=== PATIENT | female | born 1960 | race African-American/Black ===

== ENCOUNTER 2019-02-20 07:03 | Inpatient (IN) | payer OTHER ==
[~2019-02-20] VITALS: Ht 160 cm; Wt 71.9 kg
[2019-02-20] MEDS ORDERED: IV NORMAL SALINE 1000ML BAG 1,000 ML IV ONE (07:30)
[2019-02-20] MEDS ORDERED: AMLO5TAB10 PO (07:34)
[2019-02-20] MEDS ORDERED: LEVO25TA4 PO (07:34)
[2019-02-20] MEDS ORDERED: METF10007 PO (07:34)
[2019-02-20] MEDS ORDERED: ASPI-630 PO (07:34)
[2019-02-20] MEDS ORDERED: HYDR-2145 PO (07:34)
[2019-02-20] MEDS ORDERED: ATOR20TA58 PO (07:34)
--- NOTE | 2019-02-20 08:01 | PHYS DOC ---
Past Medical History Past Medical History: Diabetes-Type II, High Cholesterol, Hypertension, Hypothyroid, Other Additional Past Medical Histor: frequent headaches Past Surgical History: Cholecystectomy, Hysterectomy, Other Additional Past Surgical Histo: hernia repair Additional Information: 1/2 ppd Alcohol Use: Heavy Additional Information: reports drinking wine at least every other day Drug Use: Cocaine Adult General Chief Complaint Chief Complaint: SYNCOPE HPI HPI Patient is a 58 year old female who presents with complaining of dizziness and syncope. Patient states she woke up at her usual time at 6 AM today and felt di zzy with feeling of the room turning around her head. Patient states she had a syncopal episode when she tried to get out of the bed and woke up on the ground. Patient complaining of headache without injury. Patient denies chest pain, shortness of breath, focal neuro deficit, fever and chills, nausea and vomiting, change of hearing. Patient states she had the same episode of dizziness and syncope a few months ago and was hospitalized with negative evaluation. She'll complaining of right great toe pain and edema since yesterday morning without history of gout or injury. Patient states she was drug free for 2 years and last night smoked crack cocaine and had couple of beers but doesn't think her syncope is related to drug and alcohol. Review of Systems Review of Systems Constitutional: Denies fever or chills [] Eyes: Denies change in visual acuity, redness, or eye pain [] HENT: Denies nasal congestion or sore throat [] Respiratory: Denies cough or shortness of breath [] Cardiovascular: No additional information not addressed in HPI [] GI: Denies abdominal pain, nausea, vomiting, bloody stools or diarrhea [] : Denies dysuria or hematuria [] Musculoskeletal: Denies back pain, reports joint pain [] Integument: Denies rash or skin lesions [] Neurologic: Reports dizziness and headache, denies focal weakness or sensory changes [] Endocrine: Denies polyuria or polydipsia [] All other systems were reviewed and found to be within normal limits, except as documented in this note. Current Medications Current Medications Current Medications Medications (Trade) Dose Ordered Sig/Ted Start Time Stop Time Status Last Admin Dose Admin Aspirin (Children'S Aspirin) 324 mg 1X ONCE 02/20/19 09:30 02/20/19 09:31 02/20/19 09:28 324 MG Ceftriaxone Sodium (Rocephin) 1 gm 1X ONCE 02/20/19 09:30 02/20/19 09:31 02/20/19 09:28 1 GM Meclizine HCl (Antivert) 25 mg 1X ONCE 02/20/19 09:30 02/20/19 09:31 02/20/19 09:28 25 MG Sodium Chloride 1,000 ml @ 1,000 mls/hr 1X ONCE 02/20/19 07:30 02/20/19 08:29 DC 02/20/19 08:24 1,000 MLS/HR Allergies Allergies Allergies Coded Allergies Type Severity Reaction Last Updated Verified Penicillins Allergy Intermediate HIVES 02/20/19 Yes Sulfa (Sulfonamide Antibiotics) Adverse Reaction Intermediate ITCHING 02/20/19 Yes Physical Exam Physical Exam Constitutional: Well developed, well nourished, mild distress, non-toxic appearance. [] HENT: Normocephalic, atraumatic, bilateral external ears normal, oropharynx moist, no oral exudates, nose normal. [] Eyes: PERRLA, EOMI, conjunctiva normal, no discharge. [] Neck: Normal range of motion, no tenderness, supple, no stridor. [] Cardiovascular:Heart rate regular rhythm, no murmur [] Lungs & Thorax: Bilateral breath sounds clear to auscultation [] Abdomen: Bowel sounds normal, soft, no tenderness, no masses, no pulsatile masses. [] Skin: Warm, dry, no erythema, no rash. [] Back: No tenderness, no CVA tenderness. [] Extremities: No tenderness, no cyanosis, no clubbing, right great toe with moderate edema and erythema and tenderness without deformity or neurovascular deficit. Neurologic: Alert and oriented X 3, normal motor function, normal sensory function, no focal deficits noted. [] Psychologic: Affect normal, judgement normal, mood normal. [] Current Patient Data Vital Signs Vital Signs Date Time Temp Pulse Resp B/P (MAP) Pulse Ox O2 Delivery O2 Flow Rate FiO2 02/20/19 07:25 98.8 79 18 134/83 (100) 97 Room Air 98.8 Lab Values Laboratory Tests Test 02/20/19 07:15 02/20/19 08:20 Urine Collection Type Void Urine Color Yellow Urine Clarity Clear Urine pH 5.0 Urine Specific [place] 1.015 Urine Protein Negative mg/dL (NEG-TRACE) Urine Glucose (UA) Negative mg/dL (NEG) Urine Ketones (Stick) Negative mg/dL (NEG) Urine Blood Negative (NEG) Urine Nitrite Negative (NEG) Urine Bilirubin Negative (NEG) Urine Urobilinogen Dipstick 0.2 mg/dL (0.2 mg/dL) Urine Leukocyte Esterase Negative (NEG) Urine RBC Occ /HPF (0-2) Urine WBC Occ /HPF (0-4) Urine Squamous Epithelial Cells Mod /LPF Urine Bacteria Few /HPF (0-FEW) Urine Mucus Mod /LPF Urine Opiates Screen Neg (NEG) Urine Methadone Screen Neg (NEG) Urine Barbiturates Neg (NEG) Urine Phencyclidine Screen Neg (NEG) Urine Amphetamine/Methamphetamine Neg (NEG) Urine Benzodiazepines Screen Neg (NEG) Urine Cocaine Screen Pos (NEG) Urine Cannabinoids Screen Neg (NEG) Urine Ethyl Alcohol Neg (NEG) White Blood Count 8.4 x10^3/uL (4.0-11.0) Red Blood Count 4.94 x10^6/uL (3.50-5.40) Hemoglobin 14.7 g/dL (12.0-15.5) Hematocrit 43.2 % (36.0-47.0) Mean Corpuscular Volume 88 fL (79-100) Mean Corpuscular Hemoglobin 30 pg (25-35) Mean Corpuscular Hemoglobin Concent 34 g/dL (31-37) Red Cell Distribution Width 14.1 % (11.5-14.5) Platelet Count 273 x10^3/uL (140-400) Neutrophils (%) (Auto) 59 % (31-73) Lymphocytes (%) (Auto) 29 % (24-48) Monocytes (%) (Auto) 8 % (0-9) Eosinophils (%) (Auto) 3 % (0-3) Basophils (%) (Auto) 1 % (0-3) Neutrophils # (Auto) 5.0 x10^3uL (1.8-7.7) Lymphocytes # (Auto) 2.5 x10^3/uL (1.0-4.8) Monocytes # (Auto) 0.7 x10^3/uL (0.0-1.1) Eosinophils # (Auto) 0.2 x10^3/uL (0.0-0.7) Basophils # (Auto) 0.1 x10^3/uL (0.0-0.2) Sodium Level 141 mmol/L (136-145) Potassium Level 3.7 mmol/L (3.5-5.1) Chloride Level 103 mmol/L (98-107) Carbon Dioxide Level 23 mmol/L (21-32) Anion Gap 15 (6-14) H Blood Urea Nitrogen 8 mg/dL (7-20) Creatinine 0.7 mg/dL (0.6-1.0) Estimated GFR (Cockcroft-Gault) 104.7 BUN/Creatinine Ratio 11 (6-20) Glucose Level 92 mg/dL (70-99) Lactic Acid Level 1.0 mmol/L (0.4-2.0) Uric Acid 5.3 mg/dL (2.6-6.0) Calcium Level 9.5 mg/dL (8.5-10.1) Magnesium Level 2.1 mg/dL (1.8-2.4) Total Bilirubin 0.7 mg/dL (0.2-1.0) Aspartate Amino Transferase (AST) 21 U/L (15-37) Alanine Aminotransferase (ALT) 25 U/L (14-59) Alkaline Phosphatase 85 U/L (46-116) Creatine Kinase 184 U/L (26-192) Troponin I Quantitative 0.163 ng/mL (0.000-0.055) Total Protein 7.4 g/dL (6.4-8.2) Albumin 4.0 g/dL (3.4-5.0) Albumin/Globulin Ratio 1.2 (1.0-1.7) Ethyl Alcohol Level < 10 mg/dL (0-10) Laboratory Tests 02/20/19 08:20 Laboratory Tests 02/20/19 08:20 EKG EKG EKG interpreted by me. EKG at 0 721 showed normal sinus rhythm at rate of 75, normal MD and QT intervals, left atrial abnormalities, LVH, no acute ST and T- wave abnormalities. Radiology/Procedures Radiology/Procedures [facility] [address] [place], [place] [id number] IMAGING REPORT Signed PATIENT: JONA CELIS ACCOUNT: [id number] : 1960 LOCATION: ER AGE: 58 SEX: F EXAM STATUS: PRE ER ORD. PHYSICIAN: LISSETTE CAMILO MD REASON: dizziness PROCEDURE: CT HEAD WO CONTRAST CT HEAD WO CONTRAST History: Dizziness Comparison: None. Technique: Noncontrast CT imaging was performed of the head. Exposure: One or more of the following individualized dose reduction techniques were utilized for this examination: 1. Automated exposure control 2. Adjustment of the mA and/or kV according to patient size 3. Use of iterative reconstruction technique. Findings: No acute extra-axial or parenchymal hemorrhage is identified. There is no significant intra-axial mass effect, midline shift, or extra-axial fluid collection. The elkins-white differentiation of the major vascular territories is preserved. Ventricular size is within normal limits. There is mild prominence of bifrontal subarachnoid spaces. The mastoid air cells and the visualized paranasal sinuses are aerated. No acute calvarial abnormality is identified. There is atherosclerotic calcification of the carotid siphons bilaterally. Impression: 1. No convincing acute intracranial abnormality is identified by CT. There is prominence of bifrontal subarachnoid spaces which may be due to involutional change. Electronically signed by: Ynes Padilla MD (02/20/2019 8:08 AM) [id number] DICTATED and SIGNED BY: YNES PADILLA MD DATE: 02/20/[address] [facility] [address] [place] [address] IMAGING REPORT Signed PATIENT: JONA CELIS ACCOUNT: [id number] : 1960 LOCATION: ER AGE: 58 SEX: F EXAM STATUS: PRE ER ORD. PHYSICIAN: LISSETTE CAMILO MD REASON: dizziness PROCEDURE: CHEST PA & LATERAL CHEST PA LATERAL History: Dizziness Comparison: None. Findings: 2 views of the chest are submitted. There is no infiltrate, pneumothorax, or effusion. The cardiac silhouette is upper limits of normal in size. Impression: 1. There is no radiographic evidence of acute cardiopulmonary disease. Electronically signed by: Ynes Padilla MD (02/20/2019 8:19 AM) [id number] DICTATED and SIGNED BY: YNES PADILLA MD DATE: 02/20/198[address] [facility] [address] [place] [address] IMAGING REPORT Signed PATIENT: JONA CELIS ACCOUNT: [id number] : 1960 LOCATION: ER AGE: 58 SEX: F EXAM STATUS: PRE ER ORD. PHYSICIAN: LISSETTE CAMILO MD REASON: great toe pain and edema PROCEDURE: TOES RIGHT TOES RIGHT History: Great toe pain and edema Comparison: None. Findings: 3 views of the right foot with attention to the first digit are submitted. No acute fracture or dislocation is identified. No aggressive bone destruction is identified. Impression: 1. No acute osseous abnormality is identified. Electronically signed by: Ynes Padilla MD (02/20/2019 8:26 AM) [id number] DICTATED and SIGNED BY: YNES PADILLA MD DATE: 02/20/19825 Course & Med Decision Making Course & Med Decision Making Pertinent Labs and Imaging studies reviewed. (See chart for details) Evaluation of patient in ER showed 67-year-old female patient presented to ER because of dizziness and syncopal episode after standing up. Patient had unremarkable physical exam. Patient had near-syncope with standing up while checking orthostatic vitals. Patient had elevation of troponin without complaining of chest pain. Patient also had right great toe erythema and edema without elevation of white count lactic acid. Patient treated with Rocephin in ER and plan to admit for evaluation of syncope and elevation of troponin and treatment of diabetic foot.Patient requiring admission for further evaluation and treatment. Discussed with Dr. Bernal who is in agreement with admission. Discussed findings and plan with patient and family, who acknowledge und erstanding and agreement. Dragon Disclaimer Dragon Disclaimer This electronic medical record was generated, in whole or in part, using a voice recognition dictation system. Departure Departure Impression: Primary Impression: Syncope Additional Impressions: Elevated troponin I level Diabetic infection of right foot Cocaine abuse Tobacco abuse Tobacco abuse counseling Headache Disposition: ADMITTED INPATIENT (at 09) Admitting Physician: Bill Evans (accepted admission at 0930) Condition: IMPROVED Problem Qualifiers Primary Impression: Syncope Syncope type: unspecified Qualified Codes: R55 - Syncope and collapse Additional Impressions: Headache Headache type: unspecified Headache chronicity pattern: unspecified pattern Intractability: not intractable Qualified Codes: R51 - Headache LISSETTE CAMILO MD February 20, 2019 08:01
--- NOTE | 2019-02-20 08:11 | RAD ---
CT HEAD WO CONTRAST History: Dizziness Comparison: None. Technique: Noncontrast CT imaging was performed of the head. Exposure: One or more of the following individualized dose reduction techniques were utilized for this examination: 1. Automated exposure control 2. Adjustment of the mA and/or kV according to patient size 3. Use of iterative reconstruction technique. Findings: No acute extra-axial or parenchymal hemorrhage is identified. There is no significant intra-axial mass effect, midline shift, or extra-axial fluid collection. The elkins-white differentiation of the major vascular territories is preserved. Ventricular size is within normal limits. There is mild prominence of bifrontal subarachnoid spaces. The mastoid air cells and the visualized paranasal sinuses are aerated. No acute calvarial abnormality is identified. There is atherosclerotic calcification of the carotid siphons bilaterally. Impression: 1. No convincing acute intracranial abnormality is identified by CT. There is prominence of bifrontal subarachnoid spaces which may be due to involutional change. Electronically signed by: Adin Padilla MD (02/20/2019 8:08 AM) [id number]
[2019-02-20 08:20] LABS: BILIRUBIN,URINE NEGATIVE (NEG); CLARITY,URINE CLEAR; COLOR,URINE YELLOW; NITRITE,URINE NEGATIVE (NEG); PROTEIN,URINE NEGATIVE (NEG-TRACE); UROBILINOGEN,URINE 0.2 mg/dL (0.2 mg/dL)
[2019-02-20 08:23] LABS: SQUAMOUS EPITHELIAL CELL,UR MOD /LPF
--- NOTE | 2019-02-20 08:23 | RAD ---
CHEST PA LATERAL History: Dizziness Comparison: None. Findings: 2 views of the chest are submitted. There is no infiltrate, pneumothorax, or effusion. The cardiac silhouette is upper limits of normal in size. Impression: 1. There is no radiographic evidence of acute cardiopulmonary disease. Electronically signed by: Adin Padilla MD (02/20/2019 8:19 AM) [id number]
[2019-02-20 08:24] LABS: BACTERIA,URINE FEW /HPF (0-FEW); RBC,URINE OCC /HPF (0-2); WBC,URINE OCC /HPF (0-4)
--- NOTE | 2019-02-20 08:29 | RAD ---
TOES RIGHT History: Great toe pain and edema Comparison: None. Findings: 3 views of the right foot with attention to the first digit are submitted. No acute fracture or dislocation is identified. No aggressive bone destruction is identified. Impression: 1. No acute osseous abnormality is identified. Electronically signed by: Adin Padilla MD (02/20/2019 8:26 AM) [id number]
[2019-02-20 08:38] LABS: BARBITURATES NEG (NEG); BENZODIAZEPINES NEG (NEG); CANNABINOIDS NEG (NEG); COCAINE POS (NEG); METHADONE NEG (NEG); OPIATES NEG (NEG); PHENCYCLIDINE NEG (NEG)
[2019-02-20 08:40] LABS: BASO # 0.1 x10^3/uL (0.0-0.2); BASO % 1 % (0-3); EOS # 0.2 x10^3/uL (0.0-0.7); EOS % 3 % (0-3); HEMATOCRIT 43.2 % (36.0-47.0); HEMOGLOBIN 14.7 g/dL (12.0-15.5); LYMPH # 2.5 x10^3/uL (1.0-4.8); LYMPH % 29 % (24-48); MEAN CORPUSCULAR HEMOGLOBIN 30 pg (25-35); MEAN CORPUSCULAR HGB CONC 34 g/dL (31-37); MEAN CORPUSCULAR VOLUME 88 fL (79-100); MONO # 0.7 x10^3/uL (0.0-1.1); MONO % 8 % (0-9); NEUT % 59 % (31-73); PLATELET COUNT 273 x10^3/uL (140-400); RED BLOOD COUNT 4.94 x10^6/uL (3.50-5.40); RED CELL DISTRIBUTION WIDTH 14.1 % (11.5-14.5); WHITE BLOOD COUNT 8.4 x10^3/uL (4.0-11.0)
[2019-02-20 08:41] LABS: AMPHETAMINE/METHAMPHETAMINE NEG (NEG)
[2019-02-20 08:53] LABS: CALCIUM 9.5 mg/dL (8.5-10.1); CREATININE 0.7 mg/dL (0.6-1.0); GFR 104.7; POTASSIUM 3.7 mmol/L (3.5-5.1)
[2019-02-20 09:06] LABS: ALBUMIN/GLOBULIN RATIO 1.2 (1.0-1.7); MAGNESIUM 2.1 mg/dL (1.8-2.4); TOTAL BILIRUBIN 0.7 mg/dL (0.2-1.0); TOTAL PROTEIN 7.4 g/dL (6.4-8.2)
[2019-02-20] MEDS ORDERED: MECLIZINE HCL 12.5 MG TABLET. PO ONE (09:30)
[2019-02-20] MEDS ORDERED: ASPIRIN CHEWABLE 81 MG TABLET. PO ONE (09:30)
[2019-02-20] MEDS ORDERED: cefTRIAXone IV Push 1 GM VIAL. IVP ONE (09:30)
[2019-02-20] MEDS ORDERED: fentaNYL PF VIAL 100 MCG/2 ML VIAL IV ONE (09:45)
--- NOTE | 2019-02-20 10:06 | PDOC1 ---
History and Physical Date of Admission Date of Admission DATE: 02/20/19 TIME: 10:06 Identification/Chief Complaint Chief Complaint seen in er ,Presents with complaining of dizziness and syncope. Patient states she woke up at her usual time at 6 AM today and felt dizzy with feeling of the room turning Patient states she had a syncopal episode when she tried to get out of the bed and woke up on the ground., complaining of headache without injury. Patient denies chest pain, shortness of breath, focal neuro deficit, fever and chills, nausea and vomiting, change of hearing. states she had the same episode of dizziness and syncope a few months ago and was hospitalized with negative evaluation. complaining of right great toe pain and edema since yesterday morning without history of gout or injury. states she was drug free for 2 years and last night smoked crack cocaine Past Medical History Past Medical History Past Medical History Past Medical History: Diabetes-Type II, High Cholesterol, Hypertension, Hypothyroid, Other Additional Past Medical Histor: frequent headaches Past Surgical History: Cholecystectomy, Hysterectomy, Other Additional Past Surgical Histo: hernia repair Additional Information: 1/2 ppd Alcohol Use: Heavy Additional Information: reports drinking wine at least every other day Drug Use: Cocaine Family History Family History: Hypertension Social History Smoke: <1 pack per day ALCOHOL: social Drugs: Cocaine Current Problem List Problem List Problems Medical Problems: (1) Cocaine abuse Status: Acute (2) Diabetic infection of right foot Status: Acute (3) Elevated troponin I level Status: Acute (4) Headache Status: Acute (5) Syncope Status: Acute (6) Tobacco abuse Status: Acute (7) Tobacco abuse counseling Status: Acute Current Medications Current Medications Current Medications Sodium Chloride 1,000 ml @ 1,000 mls/hr 1X ONCE IV Last administered on 02/20/19at 08:24; Start 02/20/19 at 07:30; Stop 02/20/19 at 08:29; Status DC Meclizine HCl (Antivert) 25 mg 1X ONCE PO Last administered on 02/20/19at 09:28; Start 02/20/19 at 09:30; Stop 02/20/19 at 09:31; Status DC Ceftriaxone Sodium (Rocephin) 1 gm 1X ONCE IVP Last administered on 02/20/19at 09:28; Start 02/20/19 at 09:30; Stop 02/20/19 at 09:31; Status DC Aspirin (Children'S Aspirin) 324 mg 1X ONCE PO Last administered on 02/20/19at 09:28; Start 02/20/19 at 09:30; Stop 02/20/19 at 09:31; Status DC Fentanyl Citrate (Fentanyl 2ml Vial) 50 mcg 1X ONCE IV ; Start 02/20/19 at 09:45; Stop 02/20/19 at 09:46; Status DC Active Scripts Active Reported Atorvastatin Calcium 20 Mg Tablet 1 Tab PO DAILY Metformin Hcl 1,000 Mg Tablet 1,000 Mg PO BIDWMEALS Aspirin 81 Mg Tab.chew 1 Tab PO DAILY Levothyroxine Sodium 25 Mcg Tablet 1 Tab PO DAILY Hydrochlorothiazide Tablet (Hydrochlorothiazide) 25 Mg Tablet 25 Mg PO DAILY Amlodipine Besylate 5 Mg Tablet 5 Mg PO DAILY Allergies Allergies: Coded Allergies: Penicillins (Verified Allergy, Intermediate, HIVES, 02/20/19) Sulfa (Sulfonamide Antibiotics) (Verified Adverse Reaction, Intermediate, ITCHING, 02/20/19) ROS Review of System Review of Systems Review of Systems Constitutional: Denies fever or chills [] Eyes: Denies change in visual acuity, redness, or eye pain [] HENT: Denies nasal congestion or sore throat [] Respiratory: Denies cough or shortness of breath [] Cardiovascular: No additional information not addressed in HPI [] GI: Denies abdominal pain, nausea, vomiting, bloody stools or diarrhea [] : Denies dysuria or hematuria [] Musculoskeletal: Denies back pain, reports joint pain [] Integument: Denies rash or skin lesions [] Neurologic: Reports dizziness and headache, denies focal weakness or sensory changes [] Endocrine: Denies polyuria or polydipsia [] 14 pt systems were reviewed and found to be within normal limits, except as documented . Eyes: No Blurry vision, No Decreased vision, No Double vision, No Dry eyes, No Excessive tearing, No Eye Pain, No Itchy Eyes, No Loss of vision, No Photophobia, No Scotomata, No Uses contacts, No Uses glasses, No Other HEENT: YES: Heacaches Gastrointestinal: No Nausea, No Vomiting, No Abdominal Pain, No Diarrhea, No Constipation, No Melena, No Hematochezia, No Other Physical Exam Physical Exam Physical Exam Physical Exam Constitutional: Well developed, well nourished, mild distress, non-toxic appearance. [] HENT: Normocephalic, atraumatic, bilateral external ears normal, oropharynx moist, no oral exudates, nose normal. [] Eyes: PERRLA, EOMI, conjunctiva normal, no discharge. [] Neck: Normal range of motion, no tenderness, supple, no stridor. [] Cardiovascular:Heart rate regular rhythm, no murmur [] Lungs & Thorax: Bilateral breath sounds clear to auscultation [] Abdomen: Bowel sounds normal, soft, no tenderness, no masses, no pulsatile masses. [] Skin: Warm, dry, no erythema, no rash. [] Back: No tenderness, no CVA tenderness. [] Extremities: No tenderness, no cyanosis, no clubbing, right great toe with mod erate edema and erythema and tenderness without deformity or neurovascular deficit. Neurologic: Alert and oriented X 3, normal motor function, normal sensory function, no focal deficits noted. [] Psychologic: Affect normal, judgement poor mood anxious. [] General: Oriented X3, Cooperative HEENT: Atraumatic, EOMI, Mucous membr. moist/pink Lungs: Clear to auscultation, Normal air movement Heart: S1S2, RRR Breasts: Not examined Abdomen: Normal bowel sounds, Soft Rectal Exam: not examined Neuro: Normal speech, Cranial nerves 3-12 NL Vitals Vitals Vital Signs Date Time Temp Pulse Resp B/P (MAP) Pulse Ox O2 Delivery O2 Flow Rate FiO2 02/20/19 07:25 98.8 79 18 134/83 (100) 97 Room Air 98.8 Labs Labs Laboratory Tests Test 02/20/19 07:15 02/20/19 08:20 Urine Collection Type Void Urine Color Yellow Urine Clarity Clear Urine pH 5.0 Urine Specific [place] 1.015 Urine Protein Negative mg/dL (NEG-TRACE) Urine Glucose (UA) Negative mg/dL (NEG) Urine Ketones (Stick) Negative mg/dL (NEG) Urine Blood Negative (NEG) Urine Nitrite Negative (NEG) Urine Bilirubin Negative (NEG) Urine Urobilinogen Dipstick 0.2 mg/dL (0.2 mg/dL) Urine Leukocyte Esterase Negative (NEG) Urine RBC Occ /HPF (0-2) Urine WBC Occ /HPF (0-4) Urine Squamous Epithelial Cells Mod /LPF Urine Bacteria Few /HPF (0-FEW) Urine Mucus Mod /LPF Urine Opiates Screen Neg (NEG) Urine Methadone Screen Neg (NEG) Urine Barbiturates Neg (NEG) Urine Phencyclidine Screen Neg (NEG) Urine Amphetamine/Methamphetamine Neg (NEG) Urine Benzodiazepines Screen Neg (NEG) Urine Cocaine Screen Pos (NEG) Urine Cannabinoids Screen Neg (NEG) Urine Ethyl Alcohol Neg (NEG) White Blood Count 8.4 x10^3/uL (4.0-11.0) Red Blood Count 4.94 x10^6/uL (3.50-5.40) Hemoglobin 14.7 g/dL (12.0-15.5) Hematocrit 43.2 % (36.0-47.0) Mean Corpuscular Volume 88 fL (79-100) Mean Corpuscular Hemoglobin 30 pg (25-35) Mean Corpuscular Hemoglobin Concent 34 g/dL (31-37) Red Cell Distribution Width 14.1 % (11.5-14.5) Platelet Count 273 x10^3/uL (140-400) Neutrophils (%) (Auto) 59 % (31-73) Lymphocytes (%) (Auto) 29 % (24-48) Monocytes (%) (Auto) 8 % (0-9) Eosinophils (%) (Auto) 3 % (0-3) Basophils (%) (Auto) 1 % (0-3) Neutrophils # (Auto) 5.0 x10^3uL (1.8-7.7) Lymphocytes # (Auto) 2.5 x10^3/uL (1.0-4.8) Monocytes # (Auto) 0.7 x10^3/uL (0.0-1.1) Eosinophils # (Auto) 0.2 x10^3/uL (0.0-0.7) Basophils # (Auto) 0.1 x10^3/uL (0.0-0.2) Sodium Level 141 mmol/L (136-145) Potassium Level 3.7 mmol/L (3.5-5.1) Chloride Level 103 mmol/L (98-107) Carbon Dioxide Level 23 mmol/L (21-32) Anion Gap 15 (6-14) Blood Urea Nitrogen 8 mg/dL (7-20) Creatinine 0.7 mg/dL (0.6-1.0) Estimated GFR (Cockcroft-Gault) 104.7 BUN/Creatinine Ratio 11 (6-20) Glucose Level 92 mg/dL (70-99) Lactic Acid Level 1.0 mmol/L (0.4-2.0) Uric Acid 5.3 mg/dL (2.6-6.0) Calcium Level 9.5 mg/dL (8.5-10.1) Magnesium Level 2.1 mg/dL (1.8-2.4) Total Bilirubin 0.7 mg/dL (0.2-1.0) Aspartate Amino Transf (AST/SGOT) 21 U/L (15-37) Alanine Aminotransferase (ALT/SGPT) 25 U/L (14-59) Alkaline Phosphatase 85 U/L (46-116) Creatine Kinase 184 U/L (26-192) Troponin I Quantitative 0.163 ng/mL (0.000-0.055) Total Protein 7.4 g/dL (6.4-8.2) Albumin 4.0 g/dL (3.4-5.0) Albumin/Globulin Ratio 1.2 (1.0-1.7) Ethyl Alcohol Level < 10 mg/dL (0-10) Laboratory Tests Test 02/20/19 07:15 02/20/19 08:20 Urine Collection Type Void Urine Color Yellow Urine Clarity Clear Urine pH 5.0 Urine Specific [place] 1.015 Urine Protein Negative mg/dL (NEG-TRACE) Urine Glucose (UA) Negative mg/dL (NEG) Urine Ketones (Stick) Negative mg/dL (NEG) Urine Blood Negative (NEG) Urine Nitrite Negative (NEG) Urine Bilirubin Negative (NEG) Urine Urobilinogen Dipstick 0.2 mg/dL (0.2 mg/dL) Urine Leukocyte Esterase Negative (NEG) Urine RBC Occ /HPF (0-2) Urine WBC Occ /HPF (0-4) Urine Squamous Epithelial Cells Mod /LPF Urine Bacteria Few /HPF (0-FEW) Urine Mucus Mod /LPF Urine Opiates Screen Neg (NEG) Urine Methadone Screen Neg (NEG) Urine Barbiturates Neg (NEG) Urine Phencyclidine Screen Neg (NEG) Urine Amphetamine/Methamphetamine Neg (NEG) Urine Benzodiazepines Screen Neg (NEG) Urine Cocaine Screen Pos (NEG) Urine Cannabinoids Screen Neg (NEG) Urine Ethyl Alcohol Neg (NEG) White Blood Count 8.4 x10^3/uL (4.0-11.0) Red Blood Count 4.94 x10^6/uL (3.50-5.40) Hemoglobin 14.7 g/dL (12.0-15.5) Hematocrit 43.2 % (36.0-47.0) Mean Corpuscular Volume 88 fL (79-100) Mean Corpuscular Hemoglobin 30 pg (25-35) Mean Corpuscular Hemoglobin Concent 34 g/dL (31-37) Red Cell Distribution Width 14.1 % (11.5-14.5) Platelet Count 273 x10^3/uL (140-400) Neutrophils (%) (Auto) 59 % (31-73) Lymphocytes (%) (Auto) 29 % (24-48) Monocytes (%) (Auto) 8 % (0-9) Eosinophils (%) (Auto) 3 % (0-3) Basophils (%) (Auto) 1 % (0-3) Neutrophils # (Auto) 5.0 x10^3uL (1.8-7.7) Lymphocytes # (Auto) 2.5 x10^3/uL (1.0-4.8) Monocytes # (Auto) 0.7 x10^3/uL (0.0-1.1) Eosinophils # (Auto) 0.2 x10^3/uL (0.0-0.7) Basophils # (Auto) 0.1 x10^3/uL (0.0-0.2) Sodium Level 141 mmol/L (136-145) Potassium Level 3.7 mmol/L (3.5-5.1) Chloride Level 103 mmol/L (98-107) Carbon Dioxide Level 23 mmol/L (21-32) Anion Gap 15 (6-14) Blood Urea Nitrogen 8 mg/dL (7-20) Creatinine 0.7 mg/dL (0.6-1.0) Estimated GFR (Cockcroft-Gault) 104.7 BUN/Creatinine Ratio 11 (6-20) Glucose Level 92 mg/dL (70-99) Lactic Acid Level 1.0 mmol/L (0.4-2.0) Uric Acid 5.3 mg/dL (2.6-6.0) Calcium Level 9.5 mg/dL (8.5-10.1) Magnesium Level 2.1 mg/dL (1.8-2.4) Total Bilirubin 0.7 mg/dL (0.2-1.0) Aspartate Amino Transf (AST/SGOT) 21 U/L (15-37) Alanine Aminotransferase (ALT/SGPT) 25 U/L (14-59) Alkaline Phosphatase 85 U/L (46-116) Creatine Kinase 184 U/L (26-192) Troponin I Quantitative 0.163 ng/mL (0.000-0.055) Total Protein 7.4 g/dL (6.4-8.2) Albumin 4.0 g/dL (3.4-5.0) Albumin/Globulin Ratio 1.2 (1.0-1.7) Ethyl Alcohol Level < 10 mg/dL (0-10) Images Images CT HEAD WO CONTRAST History: Dizziness Comparison: None. Technique: Noncontrast CT imaging was performed of the head. Exposure: One or more of the following individualized dose reduction techniques were utilized for this examination: 1. Automated exposure control 2. Adjustment of the mA and/or kV according to patient size 3. Use of iterative reconstruction technique. Findings: No acute extra-axial or parenchymal hemorrhage is identified. There is no significant intra-axial mass effect, midline shift, or extra-axial fluid collection. The elkins-white differentiation of the major vascular territories is preserved. Ventricular size is within normal limits. There is mild prominence of bifrontal subarachnoid spaces. The mastoid air cells and the visualized paranasal sinuses are aerated. No acute calvarial abnormality is identified. There is atherosclerotic calcification of the carotid siphons bilaterally. Impression: 1. No convincing acute intracranial abnormality is identified by CT. There is prominence of bifrontal subarachnoid spaces which may be due to involutional change. Electronically signed by: Ynes Milligan MD (02/20/2019 8:08 AM) [id number] DICTATED and SIGNED BY: YNES MILLIGAN MD DATE: 02/20/19 0808 VTE Prophylaxis Ordered VTE Prophylaxis Devices: Yes VTE Pharmacological Prophylaxi: Yes Assessment/Plan Assessment/Plan Impression: 1. No acute intracranial abnormality is identified by CT. 2. prominence of bifrontal subarachnoid spaces which may be due to involutional change. 3. reported syncopal episode 4. alcohol abuse 5. cocaine abuse 6. elevated troponin i, high risk admit for CAD 7. DM2 8. Hypothyroidism 9.. Tobacco abuse disorder plan 1. admit cvc 2. neurology consult 3. neurochecks q 4 hrs 4. counseled on need to seek drug treatment program provided 5. cardiology consult 6. dvt prophylaxis 7. gi prophylaxis 8. echo 9. trend troponin i 10. dvt prophylaxis 11. gi prophylaxis 12, alcohol withdrawal precautions 78 min pt exam, chart review, > 50% of time spent with exam, chart review, pt care coordination NACHO MAK MD February 20, 2019 10:06
[2019-02-20] MEDS ORDERED: LORazepam 1 MG TABLET PO PRN ×2 (10:15)
[2019-02-20] MEDS ORDERED: diphenhydrAMINE 50 MG/ML VIAL IVP PRN (10:15)
[2019-02-20] MEDS ORDERED: cloNIDine HCL 0.1 MG TABLET PO PRN ×2 (10:15→12:15)
[2019-02-20] MEDS ORDERED: HALOPERIDOL LACTATE 5 MG/ML VIAL. IVP PRN (10:15)
[2019-02-20 11:00] VITALS: BP 160/88
[2019-02-20] MEDS: ASPIRIN CHEWABLE 81 MG TABLET. PO SCH (11:00)
[2019-02-20] MEDS ORDERED: THIAMINE 100 MG TABLET. PO SCH (11:00)
[2019-02-20] MEDS ORDERED: MULTIVITAMIN with MINERAL TABLET. PO SCH (11:00)
[2019-02-20] MEDS ORDERED: FOLIC ACID 1 MG TABLET. PO SCH (11:00)
[2019-02-20] MEDS: ATORVASTATIN CALCIUM 20 MG TABLET PO SCH (11:00)
[2019-02-20] MEDS: LEVOTHYROXINE 25 MCG TABLET. PO SCH (11:00)
[2019-02-20] MEDS: hydroCHLOROthiazide 25 MG TABLET PO SCH (11:00)
--- NOTE | 2019-02-20 11:01 | PDOC2 ---
KARYN WALLER GENERAL MAINTENANCE ENGINEER 02/20/19 1101: CARDIAC CONSULT DATE OF CONSULT Date of Consult DATE: 02/20/19 TIME: 10:55 REASON FOR CONSULT Reason for Consult: Elevated troponin REFERRING PHYSICIAN Referring Physician: Fullbright SOURCE Source: Chart review, Patient HISTORY OF PRESENT ILLNESS HISTORY OF PRESENT ILLNESS This is a 58 yo female admitted for complains of right big toe pain and passing out. Reports that in the last 2 days she has been having right big toe pain. This is tender and slightly swollen. No hx of gout but does drink ETOH and denies heavy ingestion nor binge use. Reports no SANDHU nor exertional CP in the last week. She is however stressed out at work due to her boss. Reports that t his morning when she got up and started walking to towards the bathroom she got dizzy and passed out. She was standing and the next thing she was on the floor no apparent injury sustained. No AMBROSE, ,visual or auditory disturbances, dysarthria but sandhu shave occasional AMBROSE. No bowel incontinence. No recent fever, chills, MVA, concussion. She had taco jett for dinner last night and drank beer and possibly smirnoff which she denies. She denies heavy alcoholism but had a relapse last night as she rolled tobacco laced with cocaine last night. She said she had a relapse as she has been sober for 2 yrs. NO prior hx of CAD, VTE, CVA but has had seizures in the past. There was convulsion symptoms no palpiations and again no chest pain nor SOA associated with this fall. PAST MEDICAL HISTORY Cardiovascular: HTN, Hyperlipidemia Pulmonary: No pertinent hx CENTRAL NERVOUS SYSTEM: Seizure, Other (AMBROSE) GI: No pertinent hx Heme/Onc: No pertinent hx Hepatobiliary: No pertinent hx Psych: Anxiety Musculoskeletal: Osteoarthritis Rheumatologic: No pertinent hx Infectious disease: No pertinent hx ENT: No pertinent hx Renal/: No pertinent hx Endocrine: Diabetes (2), Hypothyroidism Dermatology: No pertinent hx PAST SURGICAL HISTORY Past Surgical History: Cholecystectomy, Hernia Repair, Hysterectomy FAMILY HISTORY Family History noncontributory to CV SOCIAL HISTORY Smoke: <1 pack per day Drugs: Cocaine CURRENT MEDICATIONS CURRENT MEDICATIONS Current Medications Medications (Trade) Dose Ordered Sig/Ted Route PRN Reason Start Time Stop Time Status Last Admin Dose Admin Sodium Chloride 1,000 ml @ 1,000 mls/hr 1X ONCE IV 02/20/19 07:30 02/20/19 08:29 DC 02/20/19 08:24 Meclizine HCl (Antivert) 25 mg 1X ONCE PO 02/20/19 09:30 02/20/19 09:31 DC 02/20/19 09:28 Ceftriaxone Sodium (Rocephin) 1 gm 1X ONCE IVP 02/20/19 09:30 02/20/19 09:31 DC 02/20/19 09:28 Aspirin (Children'S Aspirin) 324 mg 1X ONCE PO 02/20/19 09:30 02/20/19 09:31 DC 02/20/19 09:28 ALLERGIES ALLERGIES: Coded Allergies: Penicillins (Verified Allergy, Intermediate, HIVES, 02/20/19) Sulfa (Sulfonamide Antibiotics) (Verified Adverse Reaction, Intermediate, ITCHING, 02/20/19) ROS Review of System 14 point ROS evaluated with pertinent positives noted per HPI PHYSICAL EXAM General: Alert, Oriented X3, Cooperative, No acute distress HEENT: Atraumatic, Mucous membr. moist/pink Heart: Regular rate (SR), Normal S1, Normal S2, No murmurs Abdomen: Soft, No tenderness Extremities: No cyanosis (edal pulses), No edema Skin: No breakdown, No significant lesion Psych/Mental Status: Mental status NL, Other (irritable) MUSCULOSKELETAL: Osteoarthritic changes both hands, Other (slightly swollen right big toe with mild erythema) VITALS VITALS Vital Signs Date Time Temp Pulse Resp B/P (MAP) Pulse Ox O2 Delivery O2 Flow Rate FiO2 02/20/19 10:04 80 20 120/58 (78) 97 Room Air 02/20/19 07:25 98.8 98.8 LABS Lab: Laboratory Tests Test 02/20/19 07:15 02/20/19 08:20 Urine Collection Type Void Urine Color Yellow Urine Clarity Clear Urine pH 5.0 Urine Specific [place] 1.015 Urine Protein Negative mg/dL (NEG-TRACE) Urine Glucose (UA) Negative mg/dL (NEG) Urine Ketones (Stick) Negative mg/dL (NEG) Urine Blood Negative (NEG) Urine Nitrite Negative (NEG) Urine Bilirubin Negative (NEG) Urine Urobilinogen Dipstick 0.2 mg/dL (0.2 mg/dL) Urine Leukocyte Esterase Negative (NEG) Urine RBC Occ /HPF (0-2) Urine WBC Occ /HPF (0-4) Urine Squamous Epithelial Cells Mod /LPF Urine Bacteria Few /HPF (0-FEW) Urine Mucus Mod /LPF Urine Opiates Screen Neg (NEG) Urine Methadone Screen Neg (NEG) Urine Barbiturates Neg (NEG) Urine Phencyclidine Screen Neg (NEG) Urine Amphetamine/Methamphetamine Neg (NEG) Urine Benzodiazepines Screen Neg (NEG) Urine Cocaine Screen Pos (NEG) Urine Cannabinoids Screen Neg (NEG) Urine Ethyl Alcohol Neg (NEG) White Blood Count 8.4 x10^3/uL (4.0-11.0) Red Blood Count 4.94 x10^6/uL (3.50-5.40) Hemoglobin 14.7 g/dL (12.0-15.5) Hematocrit 43.2 % (36.0-47.0) Mean Corpuscular Volume 88 fL (79-100) Mean Corpuscular Hemoglobin 30 pg (25-35) Mean Corpuscular Hemoglobin Concent 34 g/dL (31-37) Red Cell Distribution Width 14.1 % (11.5-14.5) Platelet Count 273 x10^3/uL (140-400) Neutrophils (%) (Auto) 59 % (31-73) Lymphocytes (%) (Auto) 29 % (24-48) Monocytes (%) (Auto) 8 % (0-9) Eosinophils (%) (Auto) 3 % (0-3) Basophils (%) (Auto) 1 % (0-3) Neutrophils # (Auto) 5.0 x10^3uL (1.8-7.7) Lymphocytes # (Auto) 2.5 x10^3/uL (1.0-4.8) Monocytes # (Auto) 0.7 x10^3/uL (0.0-1.1) Eosinophils # (Auto) 0.2 x10^3/uL (0.0-0.7) Basophils # (Auto) 0.1 x10^3/uL (0.0-0.2) Sodium Level 141 mmol/L (136-145) Potassium Level 3.7 mmol/L (3.5-5.1) Chloride Level 103 mmol/L (98-107) Carbon Dioxide Level 23 mmol/L (21-32) Anion Gap 15 (6-14) Blood Urea Nitrogen 8 mg/dL (7-20) Creatinine 0.7 mg/dL (0.6-1.0) Estimated GFR (Cockcroft-Gault) 104.7 BUN/Creatinine Ratio 11 (6-20) Glucose Level 92 mg/dL (70-99) Lactic Acid Level 1.0 mmol/L (0.4-2.0) Uric Acid 5.3 mg/dL (2.6-6.0) Calcium Level 9.5 mg/dL (8.5-10.1) Magnesium Level 2.1 mg/dL (1.8-2.4) Total Bilirubin 0.7 mg/dL (0.2-1.0) Aspartate Amino Transf (AST/SGOT) 21 U/L (15-37) Alanine Aminotransferase (ALT/SGPT) 25 U/L (14-59) Alkaline Phosphatase 85 U/L (46-116) Creatine Kinase 184 U/L (26-192) Troponin I Quantitative 0.163 ng/mL (0.000-0.055) Total Protein 7.4 g/dL (6.4-8.2) Albumin 4.0 g/dL (3.4-5.0) Albumin/Globulin Ratio 1.2 (1.0-1.7) Ethyl Alcohol Level < 10 mg/dL (0-10) ASSESSMENT/PLAN ASSESSMENT/PLAN 1. Syncope with nontraumatic fall: doubt arrhythmia. possible hypoglycemic re action stemming from ETOH but could not fully rule out seizure nor arrhythmia. 2. Right big toe swelling: possible gout. present prior to syncope. 3. HTN: labile episodes 4. DM2 5. Hypothyroidism 6. Tobaccoism 7. Alcoholism: denies heavy or binge 8. Cocaine abuse: last use last night relapse 9. Elevated troponin: CP free. Mild at 0.16 initially. EKG SR with LVH. Multifactorial with differentials above. possibly type 2. Recommendations 1. Trend trop, lipids. TTE. 2. Substance abuse cessation. Smoking cessation 3. Continue with secondary prevention. 4. ASA. May need to hold HCTZ for possible gout. 5. May uptitrate norvasc if need. Agree with clonidine PRN 6. Will consider for outpt stress test pending test and complaince with cess ation of substance abuse. AILYN BOWLING MD 02/20/19 7386: CARDIAC CONSULT ASSESSMENT/PLAN ASSESSMENT/PLAN Patient seen and examined. Agree with CLIENT TECHNICAL SPECIALIST's assessment and plan. Telemetry did not show any significant arrhythmia so for Slight troponin elevation most probably demand ischemia 2-D echo showed normal LV function without any wall motion abnormalities We will consider ischemic evaluation as an outpatient Thank you for your consultation KARYN WALLER APRN February 20, 2019 11:01 AILYN BOWLING MD February 20, 2019 17:55
[2019-02-20] MEDS: MULTIVIT INFUSN,ADULT 4,VIT K 10 ML, THIAMINE INJ 100 MG, FOLIC ACID INJ 1 MG in IV NOR... IV SCH (11:18)
[2019-02-20] MEDS ORDERED: ONDANSETRON PF 4 MG/2 ML VIAL. ONE (11:36)
[2019-02-20] MEDS: metFORMIN 500 MG TABLET PO SCH ×2 (12:00→17:00)
[2019-02-20] MEDS ORDERED: IPRATRPIUM/ALBUTEROL 0.5/2.5MG 3 ML NEBU. NEB SCH (12:00)
[2019-02-20] MEDS ORDERED: VANCOMYCIN 1 GM in IV DEXTROSE 5% 250 ML IV ONE (12:15)
[2019-02-20] MEDS ORDERED: MAG HYDROX/ALUMINUM HYD/SIMETH 30 ML ORAL.SUSP PO PRN (12:15)
[2019-02-20] MEDS ORDERED: ONDANSETRON PF 4 MG/2 ML VIAL. IV PRN (12:15)
[2019-02-20] MEDS ORDERED: DOCUSATE SODIUM 100 MG CAPSULE. PO PRN (12:15)
[2019-02-20] MEDS ORDERED: 0.9 % SODIUM CHLORIDE 10 ML DISP.SYRIN. IV PRN (12:15)
[2019-02-20] MEDS ORDERED: guaiFENesin ORAL 200 MG/10 ML LIQUID. PO PRN (12:15)
[2019-02-20] MEDS ORDERED: MULTIVIT INFUSN,ADULT 4,VIT K 10 ML, THIAMINE INJ 100 MG, FOLIC ACID INJ 1 MG in IV NOR... IV SCH (12:15)
[2019-02-20] MEDS ORDERED: ZOLPIDEM 5 MG TABLET. PO PRN (12:15)
--- NOTE | 2019-02-20 12:20 | EKG ---
[facility] [address] [place] [address] Test Date: 2019-02-20 Test Time: 07:21:58 Pat Name: JONA CELIS Department: Room: 207 Gender: F Special Procedure Tech: : 1960 Requested By: LISSETTE CAMILO Order Number: [id number] Reading MD: Lucas Aguirre Measurements Intervals [facility] Rate: 75 P: 56 [place]: 164 QRS: 65 QRSD: 96 T: 39 QT: 390 QTc: 438 Interpretive Statements SINUS RHYTHM LEFT ATRIAL ABNORMALITY MODERATE AMPLITUDE CRITERIA FOR LVH Electronically Signed On 03-13-2019 12:26:21 CDT by Lucas Aguirre
[2019-02-20] MEDS: PANTOPRAZOLE 40 MG TABLET.DR. PO SCH (12:30)
[2019-02-20] MEDS: amLODIPine BESYLATE 5 MG TABLET PO SCH (12:34)
--- NOTE | 2019-02-20 12:43 | EKG ---
[facility] [address] [place] [address] Test Date: 2019-02-20 Test Time: 11:44:55 Pat Name: JONA CELIS Department: Room: [facility] Gender: F Risk Control Director: : 1960 Requested By: KARYN WALLER Order Number: [id number] Reading MD: Lucas Aguirre Measurements Intervals [place] Rate: 73 P: 33 [place]: 170 QRS: 31 QRSD: 100 T: 30 QT: 410 QTc: 456 Interpretive Statements SINUS RHYTHM LOW LIMB LEAD VOLTAGE Electronically Signed On 03-13-2019 12:30:40 CDT by Lucas Aguirre
[2019-02-20] MEDS ORDERED: VANCOMYCIN 1.5 GM in IV NORMAL SALINE 500ML BAG 500 ML IV ONE (13:00)
[2019-02-20] MEDS: VANCOMYCIN PER PHARMACY MC PRN (15:16)
[2019-02-20 15:17] VITALS: BP 110/63
--- NOTE | 2019-02-20 15:18 | NUR ---
Pharmacy Vancomycin Dosing Note S:Consulted to monitor and dose vancomycin started 02/20/19. O:JONA CELIS is a 58 year old F with possible cellulitis. Height: 5 feet, 3 inches Weight: 67.3 kg Dosing Weight: Actual Other Antibiotics: N/A LABS: Last BUN: 8 Last Creatinine: 0.7 Creatinine Clearance: 83 mL/min Last WBC: 8.4 Tmax (past 24 hours): 98.8 Microbiology: N/A A: Patient requires vancomycin for possible cellulitis, goal trough 10-20 mcg/ml. Her SCr is 0.7 with an eCrCl of 83 ml/min. P: 1. Initiate Vancomycin 1500mg IV x 1 dose, then 1000 mg IV q12h 2. Follow up Trough level on 02/22/19 at 0130 3. Pharmacy will continue to monitor, follow and adjust therapy as needed. NIRMALA CHARLES [facility], 02/20/19 3069
--- NOTE | 2019-02-20 15:24 | PDOC2 ---
NEUROLOGY CONSULT Date of Admission Date of Admission DATE: 02/20/19 TIME: 15:14 Reason for Consult Reason for Consult: IMPRESSION: Syncopal spell. Chronic headache. DM. HTN. HLD. Hypothyroidism. Cocaine positive. RECOMMENDATIONS/PLAN: ASA 81 mg - 325 mg daily. Continue Lipitor HS. EEG Lab: see orders. Consulted cardiology. HISTORY OF THE PRESENT ILLNESS: his is a 58-y-old AA female admitted with complaints of right big toe pain and passing out. Reports that in the last 2 days she has been having right big toe pain. This is tender and slightly swollen. No hx of gout but does drink ETOH and denies heavy ingestion nor binge use. Reports no KENYON nor exertional CP in the last week. She is however stressed out at work due to her boss. Reports that this morning when she got up and started walking to towards the bathroom she got dizzy and passed out. She was standing and the next thing she was on the floor no apparent injury sustained. No visual or auditory disturbances, dysarthria but kenyon shave occasional AMBROSE. No bowel incontinence. PAST MEDICAL HISTORY Cardiovascular: HTN, Hyperlipidemia Pulmonary: No pertinent hx CENTRAL NERVOUS SYSTEM: Seizure, Other (AMBROSE) GI: No pertinent hx Heme/Onc: No pertinent hx Hepatobiliary: No pertinent hx Psych: Anxiety Musculoskeletal: Osteoarthritis Rheumatologic: No pertinent hx Infectious disease: No pertinent hx ENT: No pertinent hx Renal/: No pertinent hx Endocrine: Diabetes (2), Hypothyroidism Dermatology: No pertinent hx PAST SURGICAL HISTORY Cholecystectomy, Hernia Repair, Hysterectomy FAMILY HISTORY Noncontributory to CV ALLERGIES Coded Allergies: Penicillins (Verified Allergy, Intermediate, HIVES, 02/20/19) Sulfa (Sulfonamide Antibiotics) (Verified Adverse Reaction, Intermediate, ITCHING, 02/20/19) SOCIAL HISTORY Smoke: <1 pack per day Drugs: Cocaine ALLERGY: NKDA Unknown MEDICATIONS: Refer to [facility] REVIEW OF SYSTEMS: Constitutional: No malnutrition, weight loss, cachexia. Head: No traumatic brain or head injury. Skin: No edema, or rash. Ear: No infection. Eyes: No vision loss or color blindness. Nose: No bleeding or purulent discharges. Hearing: No hearing decrease. Neck: No injury. Breast: No history of cancer, masses,or discharges. Cardiac: HTN, HLD. Pulmonary: smoking.. GI: No GI ulcer, GI bleeding. Urinary/genital: UTI. Endocrinologic: Diabetes Mellitus. Skeletomuscular: No muscular atrophy. Neurological: see HP. Psychiatric: drug use/abuse. Otherwise, not [id number]-exaxy review of systems. PHYSICAL EXAMINATION: General appearance is in no acute distress. HEENT: Normocephalic and nontraumatic. Eyes, nose, ears, and throat are unremarkable. Neck is supple. No lymphadenopathy. No crepitus. Cardiovascular: S1, S2, regular rate and rhythm. Pulmonary: Clear to auscultation bilaterally. Abdomen: Bowel sounds are positive. Abdomen is soft, nontender, and nondistended. Extremities: No rash, lesions, or edema. No restriction of range of motion NEUROLOGICAL EXAMINATION: Alert Oriented to time, place and person. PERRL. EOMI. CN: no focal findings. Muscle tone: within normal. Muscle strength: 5 DTR: 2 Plantar reflex: Flexor response bilaterally Gait: not examined in bed. Sensory exam: no abnormal findings. No cerebellar signs elicited. F-T-N test accurate. Current Medications Current Medications Current Medications Sodium Chloride 1,000 ml @ 1,000 mls/hr 1X ONCE IV Last administered on 02/20/19at 08:24; Start 02/20/19 at 07:30; Stop 02/20/19 at 08:29; Status DC Meclizine HCl (Antivert) 25 mg 1X ONCE PO Last administered on 02/20/19at 09:28; Start 02/20/19 at 09:30; Stop 02/20/19 at 09:31; Status DC Ceftriaxone Sodium (Rocephin) 1 gm 1X ONCE IVP Last administered on 02/20/19at 09:28; Start 02/20/19 at 09:30; Stop 02/20/19 at 09:31; Status DC Aspirin (Children'S Aspirin) 324 mg 1X ONCE PO Last administered on 02/20/19at 09:28; Start 02/20/19 at 09:30; Stop 02/20/19 at 09:31; Status DC Fentanyl Citrate (Fentanyl 2ml Vial) 50 mcg 1X ONCE IV ; Start 02/20/19 at 09:45; Stop 02/20/19 at 09:46; Status DC Multivitamins 10 ml/Thiamine HCl 100 mg/Folic Acid 1 mg/Sodium Chloride 1,011.2 ml @ 100 mls/ hr DAILY IV Last administered on 02/20/19at 11:18; Start 02/20/19 at 11:00; Stop 02/24/19 at 19:07 Multivitamins (Thera M Plus) 1 tab DAILY PO Last administered on 02/20/19at 12:30; Start 02/20/19 at 11:00; Stop 02/20/19 at 15:13; Status DC Folic Acid (Folic Acid) 1 mg DAILY PO Last administered on 02/20/19at 12:30; Start 02/20/19 at 11:00; Stop 02/20/19 at 15:13; Status DC Thiamine HCl 100 mg/Dextrose 51 ml @ 100 mls/hr DAILY IV ; Start 02/21/19 at 09:00; Stop 02/25/19 at 09:31; Status UNV Lorazepam (Ativan) 4 mg PRN Q1HR PRN PO For CIWA 8-14; Start 02/20/19 at 10:15 Lorazepam (Ativan) 8 mg PRN Q1HR PRN PO For CIWA 15 or greater; Start 02/20/19 at 10:15 Lorazepam (Ativan Inj) 2 mg PRN Q1HR PRN IV For CIWA 8-14; Start 02/20/19 at 10:15 Lorazepam (Ativan Inj) 4 mg PRN Q1HR PRN IV For CIWA 15 or greater; Start 02/20/19 at 10:15 Haloperidol Lactate (Haldol Inj) 5 mg PRN Q4HRS PRN IVP Hallucinatns,Confusn,Delirium; Start 02/20/19 at 10:15 Diphenhydramine HCl (Benadryl) 25 mg PRN Q15MIN PRN IVP EPS symptoms 2'Haldol admin; Start 02/20/19 at 10:15 Clonidine HCl (Catapres) 0.1 mg PRN Q1HR PRN PO SBP > 180 or DBP > 100, MRX3; Start 02/20/19 at 10:15; Stop 02/20/19 at 15:12; Status DC Lorazepam (Ativan Inj) 2 mg PRN Q15MIN PRN IV SEE COMMENTS; Start 02/20/19 at 10:15; Status UNV Lorazepam (Ativan Inj) 4 mg PRN Q15MIN PRN IV SEE COMMENTS; Start 02/20/19 at 10:15; Status UNV Amlodipine Besylate (Norvasc) 5 mg DAILY PO Last administered on 02/20/19at 12:34; Start 02/20/19 at 11:00 Aspirin (Children'S Aspirin) 81 mg DAILY PO ; Start 02/20/19 at 11:00 Atorvastatin Calcium (Lipitor) 20 mg DAILY PO ; Start 02/20/19 at 11:00 Hydrochlorothiazide (Hydrodiuril) 25 mg DAILY PO ; Start 02/20/19 at 11:00 Levothyroxine Sodium (Synthroid) 25 mcg DAILY06 PO ; Start 02/20/19 at 11:00 Metformin HCl (Glucophage) 1,000 mg BIDWMEALS PO ; Start 02/20/19 at 12:00 Thiamine Mononitrate (Vitamin B-1) 100 mg DAILY PO Last administered on 02/20/19at 12:30; Start 02/20/19 at 11:00; Stop 02/20/19 at 15:12; Status DC Pantoprazole Sodium (Protonix) 40 mg DAILYAC PO Last administered on 02/20/19at 12:30; Start 02/20/19 at 12:30 Enoxaparin Sodium (Lovenox 40mg Syringe) 40 mg Q24H SQ ; Start 02/20/19 at 16:00 Sodium Chloride (Normal Saline Flush) 3 ml QSHIFT PRN IV AFTER MEDS AND BLOOD DRAWS; Start 02/20/19 at 12:15 Multivitamins 10 ml/Thiamine HCl 100 mg/Folic Acid 1 mg/Sodium Chloride 1,011.2 ml @ 125 mls/ hr Q8H IV ; Start 02/20/19 at 12:15; Status UNV Ondansetron HCl (Zofran) 4 mg PRN Q4HRS PRN IV NAUSEA/VOMITING; Start 02/20/19 at 12:15 Zolpidem Tartrate (Ambien) 5 mg PRN QHS PRN PO INSOMNIA; Start 02/20/19 at 12:15 Acetaminophen (Tylenol) 650 mg PRN Q4HRS PRN PO TEMP OVER 100.4F OR MILD PAIN; Start 02/20/19 at 12:15 Al Hydroxide/Mg Hydroxide (Mylanta Plus Xs) 30 ml PRN DAILY PRN PO HEARTBURN / GAS; Start 02/20/19 at 12:15 Clonidine HCl (Catapres) 0.1 mg PRN Q6HRS PRN PO SBP>160 OR DBP>90; Start 02/20/19 at 12:15 Docusate Sodium (Colace) 100 mg PRN BID PRN PO CONSTIPATION; Start 02/20/19 at 12:15 Albuterol/ Ipratropium (Duoneb) 3 ml Q4H NEB ; Start 02/20/19 at 12:00 Guaifenesin (Robitussin) 200 mg PRN Q4HRS PRN PO COUGH; Start 02/20/19 at 12:15 Lorazepam (Ativan) 0.5 mg PRN Q4HRS PRN PO ANXIETY / AGITATION; Start 02/20/19 at 12:15 Lorazepam (Ativan Inj) 2 mg PRN Q4HRS PRN IV ANXIETY / AGITATION; Start 02/20/19 at 12:15 Vancomycin HCl 1 gm/Dextrose 250 ml @ 250 mls/hr 1X ONCE IV ; Start 02/20/19 at 12:15; Stop 02/20/19 at 13:14; Status UNV Vancomycin HCl (Vanco Per Pharmacy) 1 each PRN DAILY PRN MC SEE COMMENTS; Start 02/20/19 at 12:45 Vancomycin HCl 1.5 gm/Sodium Chloride 500 ml @ 250 mls/hr 1X ONCE IV Last administered on 02/20/19at 14:10; Start 02/20/19 at 13:00; Stop 02/20/19 at 14:59; Status DC Vancomycin HCl 1 gm/Sodium Chloride 250 ml @ 250 mls/hr Q12H IV ; Start 02/21/19 at 02:00 Vancomycin HCl (Vancomycin Trough Level) 1 each 1X ONCE MC ; Start 02/22/19 at 01:30; Stop 02/22/19 at 01:31 Thiamine Mononitrate (Vitamin B-1) 100 mg DAILY PO ; Start 02/25/19 at 09:00 Folic Acid (Folic Acid) 1 mg DAILY PO ; Start 02/25/19 at 09:00 Multivitamins (Thera M Plus) 1 tab DAILY PO ; Start 02/25/19 at 09:00 Active Scripts Active Reported Atorvastatin Calcium 20 Mg Tablet 1 Tab PO DAILY Metformin Hcl 1,000 Mg Tablet 1,000 Mg PO BIDWMEALS Aspirin 81 Mg Tab.chew 1 Tab PO DAILY Levothyroxine Sodium 25 Mcg Tablet 1 Tab PO DAILY Hydrochlorothiazide Tablet (Hydrochlorothiazide) 25 Mg Tablet 25 Mg PO DAILY Amlodipine Besylate 5 Mg Tablet 5 Mg PO DAILY Allergies Allergies: Allergies Coded Allergies Type Severity Reaction Last Updated Verified Penicillins Allergy Intermediate HIVES 02/20/19 Yes Sulfa (Sulfonamide Antibiotics) Adverse Reaction Intermediate ITCHING 02/20/19 Yes ROS Review of System The patient denies any associated fevers, chills, headache, ear pain, rhinorrhea, sore throat, stiff neck, productive cough, chest pain, shortness of breath, back or flank pain, abdominal pain, nausea, vomiting, diarrhea, constipation, dysuria, rash, numbness, weakness, tingling, incontinence, difficulty ambulating, or diaphoresis. Physical Exam Physical Exam General: Well developed, well nourished, no acute distress, well appearing HEENT: Pupils equally round and reactive to light, EOMI, no discharge, normal conjunctiva Neck: Supple, no nuchal rigidity, no JVD, trachea midline, no tenderness Cardiac: RRR, no murmurs, no gallops, no rubs Chest/Lungs: CTAB, no wheeze, no rhonchi, no crackles Abdomen: soft, non-distended, no guarding, no peritoneal signs, non-tender Back: No tenderness Extremities: no edema, pulses intact, non-tender,capillary refill <3 sec bilateral upper and lower extremities, Neuro: Alert and oriented x 4, no focal deficits, normal speech Vitals Vitals: Vital Signs Date Time Temp Pulse Resp B/P (MAP) Pulse Ox O2 Delivery O2 Flow Rate FiO2 02/20/19 12:34 72 160/88 02/20/19 11:00 98.4 16 97 Room Air 98.4 Labs Labs Laboratory Tests Test 02/20/19 07:15 02/20/19 08:20 02/20/19 11:45 02/20/19 12:13 Urine Collection Type Void Urine Color Yellow Urine Clarity Clear Urine pH 5.0 Urine Specific [place] 1.015 Urine Protein Negative mg/dL (NEG-TRACE) Urine Glucose (UA) Negative mg/dL (NEG) Urine Ketones (Stick) Negative mg/dL (NEG) Urine Blood Negative (NEG) Urine Nitrite Negative (NEG) Urine Bilirubin Negative (NEG) Urine Urobilinogen Dipstick 0.2 mg/dL (0.2 mg/dL) Urine Leukocyte Esterase Negative (NEG) Urine RBC Occ /HPF (0-2) Urine WBC Occ /HPF (0-4) Urine Squamous Epithelial Cells Mod /LPF Urine Bacteria Few /HPF (0-FEW) Urine Mucus Mod /LPF Urine Opiates Screen Neg (NEG) Urine Methadone Screen Neg (NEG) Urine Barbiturates Neg (NEG) Urine Phencyclidine Screen Neg (NEG) Urine Amphetamine/Methamphetamine Neg (NEG) Urine Benzodiazepines Screen Neg (NEG) Urine Cocaine Screen Pos (NEG) Urine Cannabinoids Screen Neg (NEG) Urine Ethyl Alcohol Neg (NEG) White Blood Count 8.4 x10^3/uL (4.0-11.0) Red Blood Count 4.94 x10^6/uL (3.50-5.40) Hemoglobin 14.7 g/dL (12.0-15.5) Hematocrit 43.2 % (36.0-47.0) Mean Corpuscular Volume 88 fL (79-100) Mean Corpuscular Hemoglobin 30 pg (25-35) Mean Corpuscular Hemoglobin Concent 34 g/dL (31-37) Red Cell Distribution Width 14.1 % (11.5-14.5) Platelet Count 273 x10^3/uL (140-400) Neutrophils (%) (Auto) 59 % (31-73) Lymphocytes (%) (Auto) 29 % (24-48) Monocytes (%) (Auto) 8 % (0-9) Eosinophils (%) (Auto) 3 % (0-3) Basophils (%) (Auto) 1 % (0-3) Neutrophils # (Auto) 5.0 x10^3uL (1.8-7.7) Lymphocytes # (Auto) 2.5 x10^3/uL (1.0-4.8) Monocytes # (Auto) 0.7 x10^3/uL (0.0-1.1) Eosinophils # (Auto) 0.2 x10^3/uL (0.0-0.7) Basophils # (Auto) 0.1 x10^3/uL (0.0-0.2) Erythrocyte Sedimentation Rate 15 (0-25) Sodium Level 141 mmol/L (136-145) Potassium Level 3.7 mmol/L (3.5-5.1) Chloride Level 103 mmol/L (98-107) Carbon Dioxide Level 23 mmol/L (21-32) Anion Gap 15 (6-14) Blood Urea Nitrogen 8 mg/dL (7-20) Creatinine 0.7 mg/dL (0.6-1.0) Estimated GFR (Cockcroft-Gault) 104.7 BUN/Creatinine Ratio 11 (6-20) Glucose Level 92 mg/dL (70-99) Lactic Acid Level 1.0 mmol/L (0.4-2.0) Uric Acid 5.3 mg/dL (2.6-6.0) Calcium Level 9.5 mg/dL (8.5-10.1) Magnesium Level 2.1 mg/dL (1.8-2.4) Total Bilirubin 0.7 mg/dL (0.2-1.0) Aspartate Amino Transf (AST/SGOT) 21 U/L (15-37) Alanine Aminotransferase (ALT/SGPT) 25 U/L (14-59) Alkaline Phosphatase 85 U/L (46-116) Creatine Kinase 184 U/L (26-192) Troponin I Quantitative 0.163 ng/mL (0.000-0.055) < 0.017 ng/mL (0.000-0.055) Total Protein 7.4 g/dL (6.4-8.2) Albumin 4.0 g/dL (3.4-5.0) Albumin/Globulin Ratio 1.2 (1.0-1.7) Triglycerides Level 86 mg/dL (0-150) Cholesterol Level 173 mg/dL (0-200) LDL Cholesterol, Calculated 71 mg/dL (0-100) VLDL Cholesterol, Calculated 17 mg/dL (0-40) Non-HDL Cholesterol Calculated 88 mg/dL (0-129) HDL Cholesterol 85 mg/dL (40-60) Cholesterol/HDL Ratio 2.0 Ethyl Alcohol Level < 10 mg/dL (0-10) Glucose (Fingerstick) 85 mg/dL (70-99) Laboratory Tests Test 02/20/19 07:15 02/20/19 08:20 02/20/19 11:45 02/20/19 12:13 Urine Collection Type Void Urine Color Yellow Urine Clarity Clear Urine pH 5.0 Urine Specific [place] 1.015 Urine Protein Negative mg/dL (NEG-TRACE) Urine Glucose (UA) Negative mg/dL (NEG) Urine Ketones (Stick) Negative mg/dL (NEG) Urine Blood Negative (NEG) Urine Nitrite Negative (NEG) Urine Bilirubin Negative (NEG) Urine Urobilinogen Dipstick 0.2 mg/dL (0.2 mg/dL) Urine Leukocyte Esterase Negative (NEG) Urine RBC Occ /HPF (0-2) Urine WBC Occ /HPF (0-4) Urine Squamous Epithelial Cells Mod /LPF Urine Bacteria Few /HPF (0-FEW) Urine Mucus Mod /LPF Urine Opiates Screen Neg (NEG) Urine Methadone Screen Neg (NEG) Urine Barbiturates Neg (NEG) Urine Phencyclidine Screen Neg (NEG) Urine Amphetamine/Methamphetamine Neg (NEG) Urine Benzodiazepines Screen Neg (NEG) Urine Cocaine Screen Pos (NEG) Urine Cannabinoids Screen Neg (NEG) Urine Ethyl Alcohol Neg (NEG) White Blood Count 8.4 x10^3/uL (4.0-11.0) Red Blood Count 4.94 x10^6/uL (3.50-5.40) Hemoglobin 14.7 g/dL (12.0-15.5) Hematocrit 43.2 % (36.0-47.0) Mean Corpuscular Volume 88 fL (79-100) Mean Corpuscular Hemoglobin 30 pg (25-35) Mean Corpuscular Hemoglobin Concent 34 g/dL (31-37) Red Cell Distribution Width 14.1 % (11.5-14.5) Platelet Count 273 x10^3/uL (140-400) Neutrophils (%) (Auto) 59 % (31-73) Lymphocytes (%) (Auto) 29 % (24-48) Monocytes (%) (Auto) 8 % (0-9) Eosinophils (%) (Auto) 3 % (0-3) Basophils (%) (Auto) 1 % (0-3) Neutrophils # (Auto) 5.0 x10^3uL (1.8-7.7) Lymphocytes # (Auto) 2.5 x10^3/uL (1.0-4.8) Monocytes # (Auto) 0.7 x10^3/uL (0.0-1.1) Eosinophils # (Auto) 0.2 x10^3/uL (0.0-0.7) Basophils # (Auto) 0.1 x10^3/uL (0.0-0.2) Erythrocyte Sedimentation Rate 15 (0-25) Sodium Level 141 mmol/L (136-145) Potassium Level 3.7 mmol/L (3.5-5.1) Chloride Level 103 mmol/L (98-107) Carbon Dioxide Level 23 mmol/L (21-32) Anion Gap 15 (6-14) Blood Urea Nitrogen 8 mg/dL (7-20) Creatinine 0.7 mg/dL (0.6-1.0) Estimated GFR (Cockcroft-Gault) 104.7 BUN/Creatinine Ratio 11 (6-20) Glucose Level 92 mg/dL (70-99) Lactic Acid Level 1.0 mmol/L (0.4-2.0) Uric Acid 5.3 mg/dL (2.6-6.0) Calcium Level 9.5 mg/dL (8.5-10.1) Magnesium Level 2.1 mg/dL (1.8-2.4) Total Bilirubin 0.7 mg/dL (0.2-1.0) Aspartate Amino Transf (AST/SGOT) 21 U/L (15-37) Alanine Aminotransferase (ALT/SGPT) 25 U/L (14-59) Alkaline Phosphatase 85 U/L (46-116) Creatine Kinase 184 U/L (26-192) Troponin I Quantitative 0.163 ng/mL (0.000-0.055) < 0.017 ng/mL (0.000-0.055) Total Protein 7.4 g/dL (6.4-8.2) Albumin 4.0 g/dL (3.4-5.0) Albumin/Globulin Ratio 1.2 (1.0-1.7) Triglycerides Level 86 mg/dL (0-150) Cholesterol Level 173 mg/dL (0-200) LDL Cholesterol, Calculated 71 mg/dL (0-100) VLDL Cholesterol, Calculated 17 mg/dL (0-40) Non-HDL Cholesterol Calculated 88 mg/dL (0-129) HDL Cholesterol 85 mg/dL (40-60) Cholesterol/HDL Ratio 2.0 Ethyl Alcohol Level < 10 mg/dL (0-10) Glucose (Fingerstick) 85 mg/dL (70-99) JAGDISH COOPER MD February 20, 2019 15:24
--- NOTE | 2019-02-20 15:42 | NUR ---
Wound Care: Consult to eval and treat pt for "foot" wound. R toe xray was negative for abnormality. No open areas for wound care to treat. Recommend podiatry consult. Notified Vianney GALVEZ. Sign off for now.
[2019-02-20] MEDS ORDERED: NEOMY/BACITR/POLYMYXIN OINT PACKET. TP ONE (17:15)
[2019-02-20] MEDS ORDERED: LIDOCAINE 1% PF 30 ML VIAL. INJ ONE (17:15)
[2019-02-20] MEDS: ENOXAPARIN 40 MG/0.4 ML SYRINGE. SQ SCH (17:24)
--- NOTE | 2019-02-20 17:38 | CARD ---
MR#: [id number] Date of Study: 02/20/2019 Ordering Physician: NACHO MAK, Referring Physician: NACHO MAK Tech: Heather Giron EPIFANIO APPROVED REPORT EXAM: Two-dimensional and M-mode echocardiogram with Doppler and color Doppler. Other Information Quality : AverageHR: 73bpm Rhythm : NSR INDICATION Elevated Troponin 2D DIMENSIONS RVDd2.7 (2.9-3.5cm)Left Atrium(2D)2.5 (1.6-4.0cm) IVSd1.0 (0.7-1.1cm)Aortic Root(2D)2.6 (2.0-3.7cm) LVDd4.0 (3.9-5.9cm)LVOT Diameter2.1 (1.8-2.4cm) PWd1.0 (0.7-1.1cm)LVDs2.7 (2.5-4.0cm) FS (%) 32.9 %SV44.1 ml LVEF(%)61.9 (>50%) M-Mode DIMENSIONS Left Atrium(MM)2.89 (2.5-4.0cm)Aortic Root2.85 (2.2-3.7cm) Aortic Valve AoV Peak Ramírez.142.2cm/sAoV VTI25.7cm AO Peak GR.8.1mmHgLVOT Peak Ramírez.106.3cm/s AO Mean GR.4mmHgAVA (VMAX)2.50cm2 JOSE L (VTI)2.50cm2 Mitral Valve MV E Zdcqdkkc51.5cm/sMV E Peak Gr.8mmHg MV DECEL [id number] A Fullazec180.4cm/s MV E Mean Gr.4mmHgE/A Ratio0.7 Pulmonary Valve PV Peak Gkuzbqah66.4cm/s Tricuspid Valve TR P. [id number] [id number] TR Peak Gr.[id number] LEFT VENTRICLE The left ventricle is normal size. There is normal left ventricular wall thickness. The left ventricu lar systolic function is normal. The Ejection Fraction is 60-65%. There is normal LV segmental wall m otion. Transmitral Doppler flow pattern is Grade I-abnormal relaxation pattern. RIGHT VENTRICLE The right ventricle is normal size. There is normal right ventricular wall thickness. The right ventr icular systolic function is normal. ATRIA The left atrium size is normal. The right atrium size is normal. The interatrial septum is intact wit h no evidence for an atrial septal defect or patent foramen ovale as noted on 2-D or Doppler imaging. AORTIC VALVE The aortic valve is normal in structure and function. The aortic valve is trileaflet. Doppler and Col or Flow revealed no significant aortic regurgitation. There is no significant aortic valvular stenosi s. There is no aortic valvular vegetation. MITRAL VALVE The mitral valve is normal in structure and function. There is no evidence of mitral valve prolapse. There is no mitral valve stenosis. Doppler and Color-flow revealed trace mitral regurgitation. TRICUSPID VALVE The tricuspid valve is normal in structure and function. Doppler and Color Flow revealed trace tricus pid regurgitation. The PA pressure was estimated at 26 mmHg. There is no tricuspid valve prolapse or vegetation. There is no tricuspid valve stenosis. PULMONIC VALVE The pulmonary valve is normal in structure and function. Doppler and Color Flow revealed no pulmonic valvular regurgitation. There is no pulmonic valvular stenosis. GREAT VESSELS The aortic root is normal in size. The ascending aorta is normal in size. The IVC is normal in size a nd collapses >50% with inspiration. PERICARDIAL EFFUSION There is no evidence of significant pericardial effusion. Critical Notification Critical Value: No <Conclusion> The left ventricular systolic function is normal. The Ejection Fraction is 60-65%. There is normal LV segmental wall motion. Transmitral Doppler flow pattern is Grade I-abnormal relaxation pattern. Trace mitral regurgitation. Trace tricuspid regurgitation. The PA pressure was estimated at 26 mmHg. There is no evidence of significant pericardial effusion. Signed by : Lucas Aguirre, Electronically Approved : 02/20/2019 17:38:08
--- NOTE | 2019-02-20 18:06 | PDOC4 ---
PROCEDURE Procedure Pre op Diagnosis: Paronychia right hallux Post op DX: Same Procedure: Incision and drainage with total nail avulsion right hallux Anesthesia: hallux block 6mL of 1% lidocaine plain Surgeon: Dr. Chu Indication: Patient with chronic recurrent painful right hallux nail which has fallen off before. Pain has been present for a few weeks. Discussed patient condition and treatment options to include risks/benefits and complications to include delayed or non healing, recurrence, need for further surgery, infection. All questions answered. Patient signed consent freely and placed in chart Procedure: Time out taken to confirm patient identification, procedure to be performed, and identify right hallux. Performed hallux block to right hallux with 1% lidocaine plain 6mL. Achieved hemostasis and prepped the toe with betadine solution. Used a glove at base of toe secured with hemostat for hemostasis. using a hemostat loosened the nail from the nail bed right hallux expressing pustular drainage. The nail was removed en toto. Cleansed with saline and applied bacitracin and gauze bandage with kerlex. Removed tourniquet. Note CFT instant to toe. Begin BID saline compress or soaking in saline 15 minutes. Apply bacitracin and bandaid starting tomorrow BID after soak/compress. Follow up in 2 weeks in my office. JOSE RAMON CHU DPM February 20, 2019 18:06
[2019-02-20] MEDS ORDERED: ACETAMINOPHEN 500 MG TABLET PO PRN (18:15)
--- NOTE | 2019-02-20 18:15 | PDOC2 ---
CONSULT Date of Consult Date of Consult DATE: 02/20/19 TIME: 18:06 Reason for Consult Reason for Consult: painful ingrown toenail right hallux Referring Physician Referring Physician: Fullbright Identification/Chief Complaint Chief Complaint painful ingrown toenail right hallux Source Source: Patient History of Present Illness Reason for Visit: 58 year old female admitted to [facility] for raised troponins. She also complains of pain to right hallux nail for several weeks. She states the nail has fallen off before 2 times. She also notes thickening and discoloration to her nails. She has not self treated. Past Medical History Cardiovascular: HTN, Hyperlipidemia Pulmonary: No pertinent hx CENTRAL NERVOUS SYSTEM: Seizure, Other (AMBROSE) GI: No pertinent hx Heme/Onc: No pertinent hx Hepatobiliary: No pertinent hx Psych: Anxiety Musculoskeletal: Osteoarthritis Rheumatologic: No pertinent hx Infectious disease: No pertinent hx ENT: No pertinent hx Renal/: No pertinent hx Endocrine: Diabetes (2), Hypothyroidism Dermatology: No pertinent hx Past Surgical History Past Surgical History: Cholecystectomy, Hernia Repair, Hysterectomy Family History Family History: Hypertension Social History <1 pack per day ALCOHOL: social Drugs: Cocaine Current Problem List Problem List Problems Medical Problems: (1) Cocaine abuse Status: Acute (2) Diabetic infection of right foot Status: Acute (3) Elevated troponin I level Status: Acute (4) Headache Status: Acute (5) Syncope Status: Acute (6) Tobacco abuse Status: Acute (7) Tobacco abuse counseling Status: Acute Current Medications Current Medications Current Medications Sodium Chloride 1,000 ml @ 1,000 mls/hr 1X ONCE IV Last administered on 02/20/19at 08:24; Start 02/20/19 at 07:30; Stop 02/20/19 at 08:29; Status DC Meclizine HCl (Antivert) 25 mg 1X ONCE PO Last administered on 02/20/19at 09:28; Start 02/20/19 at 09:30; Stop 02/20/19 at 09:31; Status DC Ceftriaxone Sodium (Rocephin) 1 gm 1X ONCE IVP Last administered on 02/20/19at 09:28; Start 02/20/19 at 09:30; Stop 02/20/19 at 09:31; Status DC Aspirin (Children'S Aspirin) 324 mg 1X ONCE PO Last administered on 02/20/19at 09:28; Start 02/20/19 at 09:30; Stop 02/20/19 at 09:31; Status DC Fentanyl Citrate (Fentanyl 2ml Vial) 50 mcg 1X ONCE IV ; Start 02/20/19 at 09:45; Stop 02/20/19 at 09:46; Status DC Multivitamins 10 ml/Thiamine HCl 100 mg/Folic Acid 1 mg/Sodium Chloride 1,011.2 ml @ 100 mls/ hr DAILY IV Last administered on 02/20/19at 11:18; Start 02/20/19 at 11:00; Stop 02/24/19 at 19:07 Multivitamins (Thera M Plus) 1 tab DAILY PO Last administered on 02/20/19at 12:30; Start 02/20/19 at 11:00; Stop 02/20/19 at 15:13; Status DC Folic Acid (Folic Acid) 1 mg DAILY PO Last administered on 02/20/19at 12:30; Start 02/20/19 at 11:00; Stop 02/20/19 at 15:13; Status DC Thiamine HCl 100 mg/Dextrose 51 ml @ 100 mls/hr DAILY IV ; Start 02/21/19 at 09:00; Stop 02/25/19 at 09:31; Status UNV Lorazepam (Ativan) 4 mg PRN Q1HR PRN PO For CIWA 8-14; Start 02/20/19 at 10:15 Lorazepam (Ativan) 8 mg PRN Q1HR PRN PO For CIWA 15 or greater; Start 02/20/19 at 10:15 Lorazepam (Ativan Inj) 2 mg PRN Q1HR PRN IV For CIWA 8-14; Start 02/20/19 at 10:15 Lorazepam (Ativan Inj) 4 mg PRN Q1HR PRN IV For CIWA 15 or greater; Start 02/20/19 at 10:15 Haloperidol Lactate (Haldol Inj) 5 mg PRN Q4HRS PRN IVP Hallucinatns,Confusn,Delirium; Start 02/20/19 at 10:15 Diphenhydramine HCl (Benadryl) 25 mg PRN Q15MIN PRN IVP EPS symptoms 2'Haldol admin; Start 02/20/19 at 10:15 Clonidine HCl (Catapres) 0.1 mg PRN Q1HR PRN PO SBP > 180 or DBP > 100, MRX3; Start 02/20/19 at 10:15; Stop 02/20/19 at 15:12; Status DC Lorazepam (Ativan Inj) 2 mg PRN Q15MIN PRN IV SEE COMMENTS; Start 02/20/19 at 10:15; Status UNV Lorazepam (Ativan Inj) 4 mg PRN Q15MIN PRN IV SEE COMMENTS; Start 02/20/19 at 10:15; Status UNV Amlodipine Besylate (Norvasc) 5 mg DAILY PO Last administered on 02/20/19at 12 :34; Start 02/20/19 at 11:00 Aspirin (Children'S Aspirin) 81 mg DAILY PO ; Start 02/20/19 at 11:00 Atorvastatin Calcium (Lipitor) 20 mg DAILY PO ; Start 02/20/19 at 11:00 Hydrochlorothiazide (Hydrodiuril) 25 mg DAILY PO ; Start 02/20/19 at 11:00 Levothyroxine Sodium (Synthroid) 25 mcg DAILY06 PO ; Start 02/20/19 at 11:00 Metformin HCl (Glucophage) 1,000 mg BIDWMEALS PO Last administered on 02/20/19at 17:00; Start 02/20/19 at 12:00; Stop 02/20/19 at 17:00; Status DC Thiamine Mononitrate (Vitamin B-1) 100 mg DAILY PO Last administered on 02/20/19at 12:30; Start 02/20/19 at 11:00; Stop 02/20/19 at 15:12; Status DC Pantoprazole Sodium (Protonix) 40 mg DAILYAC PO Last administered on 02/20/19at 12:30; Start 02/20/19 at 12:30 Enoxaparin Sodium (Lovenox 40mg Syringe) 40 mg Q24H SQ Last administered on 02/20/19at 17:24; Start 02/20/19 at 16:00 Sodium Chloride (Normal Saline Flush) 3 ml QSHIFT PRN IV AFTER MEDS AND BLOOD DRAWS; Start 02/20/19 at 12:15 Multivitamins 10 ml/Thiamine HCl 100 mg/Folic Acid 1 mg/Sodium Chloride 1,011.2 ml @ 125 mls/ hr Q8H IV ; Start 02/20/19 at 12:15; Status UNV Ondansetron HCl (Zofran) 4 mg PRN Q4HRS PRN IV NAUSEA/VOMITING; Start 02/20/19 at 12:15 Zolpidem Tartrate (Ambien) 5 mg PRN QHS PRN PO INSOMNIA; Start 02/20/19 at 12:15 Acetaminophen (Tylenol) 650 mg PRN Q4HRS PRN PO TEMP OVER 100.4F OR MILD PAIN; Start 02/20/19 at 12:15 Al Hydroxide/Mg Hydroxide (Mylanta Plus Xs) 30 ml PRN DAILY PRN PO HEARTBURN / GAS; Start 02/20/19 at 12:15 Clonidine HCl (Catapres) 0.1 mg PRN Q6HRS PRN PO SBP>160 OR DBP>90; Start 02/20/19 at 12:15 Docusate Sodium (Colace) 100 mg PRN BID PRN PO CONSTIPATION; Start 02/20/19 at 12:15 Albuterol/ Ipratropium (Duoneb) 3 ml Q4H NEB Last administered on 02/20/19at 16:00; Start 02/20/19 at 12:00 Guaifenesin (Robitussin) 200 mg PRN Q4HRS PRN PO COUGH; Start 02/20/19 at 12:15 Lorazepam (Ativan) 0.5 mg PRN Q4HRS PRN PO ANXIETY / AGITATION; Start 02/20/19 at 12:15 Lorazepam (Ativan Inj) 2 mg PRN Q4HRS PRN IV ANXIETY / AGITATION; Start 02/20/19 at 12:15 Vancomycin HCl 1 gm/Dextrose 250 ml @ 250 mls/hr 1X ONCE IV ; Start 02/20/19 at 12:15; Stop 02/20/19 at 13:14; Status UNV Vancomycin HCl (Vanco Per Pharmacy) 1 each PRN DAILY PRN MC SEE COMMENTS Last administered on 02/20/19at 15:16; Start 02/20/19 at 12:45 Vancomycin HCl 1.5 gm/Sodium Chloride 500 ml @ 250 mls/hr 1X ONCE IV Last administered on 02/20/19at 14:10; Start 02/20/19 at 13:00; Stop 02/20/19 at 14:59; Status DC Vancomycin HCl 1 gm/Sodium Chloride 250 ml @ 250 mls/hr Q12H IV ; Start 02/21/19 at 02:00 Vancomycin HCl (Vancomycin Trough Level) 1 each 1X ONCE MC ; Start 02/22/19 at 01:30; Stop 02/22/19 at 01:31 Thiamine Mononitrate (Vitamin B-1) 100 mg DAILY PO ; Start 02/25/19 at 09:00 Folic Acid (Folic Acid) 1 mg DAILY PO ; Start 02/25/19 at 09:00 Multivitamins (Thera M Plus) 1 tab DAILY PO ; Start 02/25/19 at 09:00 Lactobacillus Rhamnosus (Culturelle) 1 cap BID PO ; Start 02/20/19 at 21:00 Metformin HCl (Glucophage) 1,000 mg DAILY08 PO ; Start 02/21/19 at 08:00 Lidocaine HCl (Xylocaine 1% Pf 30ml Vial) 30 ml 1X ONCE INJ ; Start 02/20/19 at 17:15; Stop 02/20/19 at 17:16; Status DC Neomycin/ Polymyxin/ Bacitracin (Triple Antibiotic Ointment) 1 pkt 1X ONCE TP ; Start 02/20/19 at 17:15; Stop 02/20/19 at 17:16; Status DC Metronidazole (Flagyl) 500 mg Q12HR PO ; Start 02/20/19 at 18:00 Active Scripts Active Reported Atorvastatin Calcium 20 Mg Tablet 1 Tab PO DAILY Metformin Hcl 1,000 Mg Tablet 1,000 Mg PO BIDWMEALS Aspirin 81 Mg Tab.chew 1 Tab PO DAILY Levothyroxine Sodium 25 Mcg Tablet 1 Tab PO DAILY Hydrochlorothiazide Tablet (Hydrochlorothiazide) 25 Mg Tablet 25 Mg PO DAILY Amlodipine Besylate 5 Mg Tablet 5 Mg PO DAILY Allergies Allergies: Coded Allergies: Penicillins (Verified Allergy, Intermediate, HIVES, 02/20/19) Sulfa (Sulfonamide Antibiotics) (Verified Adverse Reaction, Intermediate, ITCHING, 02/20/19) ROS General: No: Chills, Night Sweats, Fatigue, Malaise, Appetite, Other PSYCHOLOGICAL ROS: No: Anxiety, Behavioral Disorder, Concentration difficultie, Decreased libido, Depression, Disorientation, Hallucinations, Hostility, Irritablity, Memory difficulties, Mood Swings, Obsessive thoughts, Physical abuse, Sexual abuse, Sleep disturbances, Suicidal ideation, Other Eyes: No Blurry vision, No Decreased vision, No Double vision, No Dry eyes, No Excessive tearing, No Eye Pain, No Itchy Eyes, No Loss of vision, No Photophobia, No Scotomata, No Uses contacts, No Uses glasses, No Other HEENT: No: Heacaches, Visual Changes, Hearing change, Nasal congestion, Nasal discharge, Oral lesions, Sinus pain, Sore Throat, Epistaxis, Sneezing, Snoring, Tinnitus, Vertigo, Vocal changes, Other ALLERGY AND IMMUNOLOGY: No: Hives, Insect Bite Sensitivity, Itchy/Watery Eyes, Nasal Congestion, Post Nasal Drip, Seasonal Allergies, Other Hematological and Lymphatic: No: Bleeding Problems, Blood Clots, Blood Tr ansfusions, Brusing, Night Sweats, Pallor, Swollen Lymph Nodes, Other ENDOCRINE: No: Breast Changes, Galactorrhea, Hair Pattern Changes, Hot Flashes, Malaise/lethargy, Mood Swings, Palpitations, Polydipsia/polyuria, Skin Changes, Temperature Intolerance, Unexpected Weight Changes, Other Breast: No New/Changing Breast Lumps, No Nipple changes, No Nipple discharge, No Other Respiratory: No: Cough, Hemoptysis, Orthopnea, Pleuritic Pain, Shortness of breath, SOB with excertion, Sputum Changes, Stridor, Tachypnea, Wheezing, Other Cardiovascular: No Chest Pain, No Palpitations, No Orthopnea, No Paroxysmal Noc. Dyspnea, No Edema, No Lt Headedness, No Other Gastrointestinal: No Nausea, No Vomiting, No Abdominal Pain, No Diarrhea, No Constipation, No Melena, No Hematochezia, No Other Genitourinary: No Dysuria, No Frequency, No Incontinence, No Hematuria, No Retention, No Discharge, No Urgency, No Pain, No Flank Pain, No Other, No , No , No , No , No , No , No Musculoskeletal: No Gait Disturbance, No Joint Pain, No Joint Stiffness, No Joint Swelling, No Muscle Pain, No Muscular Weakness, No Pain In:, No Swelling In:, No Other Skin: Yes Nail Changes; No Dry Skin, No Eczema, No Hair Changes, No Lumps, No Mole Changes, No Mottling, No Pruritus, No Rash, No Skin Lesion Changes, No Other, No Acne Physical Exam Physical Exam Lower extremity: Skin is warm, xerotic, supple normal turgor. note incurvation of medial and lateral nail border right hallux with localized edema and hyperpigmentation with thickening and discoloration noted to nail as well as remaining digits. No ascending cellulitis. hair is present to feet. no discontinuity of skin. no calor. DP and PT 2/4. CFT less than 3 seconds. no edema. Sensation intact to light touch and sharp dull. Muscle strength is 5/5. positive pain on palpation to right hallux nail. General: Alert, Oriented X3, No acute distress Vitals VITALS Vital Signs Date Time Temp Pulse Resp B/P (MAP) Pulse Ox O2 Delivery O2 Flow Rate FiO2 02/20/19 16:32 97 Room Air 02/20/19 15:17 98.1 83 16 110/63 (79) 98.1 Labs Labs Laboratory Tests Test 02/20/19 07:15 02/20/19 08:20 02/20/19 11:45 02/20/19 12:13 Urine Collection Type Void Urine Color Yellow Urine Clarity Clear Urine pH 5.0 Urine Specific [place] 1.015 Urine Protein Negative mg/dL (NEG-TRACE) Urine Glucose (UA) Negative mg/dL (NEG) Urine Ketones (Stick) Negative mg/dL (NEG) Urine Blood Negative (NEG) Urine Nitrite Negative (NEG) Urine Bilirubin Negative (NEG) Urine Urobilinogen Dipstick 0.2 mg/dL (0.2 mg/dL) Urine Leukocyte Esterase Negative (NEG) Urine RBC Occ /HPF (0-2) Urine WBC Occ /HPF (0-4) Urine Squamous Epithelial Cells Mod /LPF Urine Bacteria Few /HPF (0-FEW) Urine Mucus Mod /LPF Urine Opiates Screen Neg (NEG) Urine Methadone Screen Neg (NEG) Urine Barbiturates Neg (NEG) Urine Phencyclidine Screen Neg (NEG) Urine Amphetamine/Methamphetamine Neg (NEG) Urine Benzodiazepines Screen Neg (NEG) Urine Cocaine Screen Pos (NEG) Urine Cannabinoids Screen Neg (NEG) Urine Ethyl Alcohol Neg (NEG) White Blood Count 8.4 x10^3/uL (4.0-11.0) Red Blood Count 4.94 x10^6/uL (3.50-5.40) Hemoglobin 14.7 g/dL (12.0-15.5) Hematocrit 43.2 % (36.0-47.0) Mean Corpuscular Volume 88 fL (79-100) Mean Corpuscular Hemoglobin 30 pg (25-35) Mean Corpuscular Hemoglobin Concent 34 g/dL (31-37) Red Cell Distribution Width 14.1 % (11.5-14.5) Platelet Count 273 x10^3/uL (140-400) Neutrophils (%) (Auto) 59 % (31-73) Lymphocytes (%) (Auto) 29 % (24-48) Monocytes (%) (Auto) 8 % (0-9) Eosinophils (%) (Auto) 3 % (0-3) Basophils (%) (Auto) 1 % (0-3) Neutrophils # (Auto) 5.0 x10^3uL (1.8-7.7) Lymphocytes # (Auto) 2.5 x10^3/uL (1.0-4.8) Monocytes # (Auto) 0.7 x10^3/uL (0.0-1.1) Eosinophils # (Auto) 0.2 x10^3/uL (0.0-0.7) Basophils # (Auto) 0.1 x10^3/uL (0.0-0.2) Erythrocyte Sedimentation Rate 15 (0-25) Sodium Level 141 mmol/L (136-145) Potassium Level 3.7 mmol/L (3.5-5.1) Chloride Level 103 mmol/L (98-107) Carbon Dioxide Level 23 mmol/L (21-32) Anion Gap 15 (6-14) Blood Urea Nitrogen 8 mg/dL (7-20) Creatinine 0.7 mg/dL (0.6-1.0) Estimated GFR (Cockcroft-Gault) 104.7 BUN/Creatinine Ratio 11 (6-20) Glucose Level 92 mg/dL (70-99) Lactic Acid Level 1.0 mmol/L (0.4-2.0) Uric Acid 5.3 mg/dL (2.6-6.0) Calcium Level 9.5 mg/dL (8.5-10.1) Magnesium Level 2.1 mg/dL (1.8-2.4) Total Bilirubin 0.7 mg/dL (0.2-1.0) Aspartate Amino Transf (AST/SGOT) 21 U/L (15-37) Alanine Aminotransferase (ALT/SGPT) 25 U/L (14-59) Alkaline Phosphatase 85 U/L (46-116) Creatine Kinase 184 U/L (26-192) Troponin I Quantitative 0.163 ng/mL (0.000-0.055) < 0.017 ng/mL (0.000-0.055) Total Protein 7.4 g/dL (6.4-8.2) Albumin 4.0 g/dL (3.4-5.0) Albumin/Globulin Ratio 1.2 (1.0-1.7) Triglycerides Level 86 mg/dL (0-150) Cholesterol Level 173 mg/dL (0-200) LDL Cholesterol, Calculated 71 mg/dL (0-100) VLDL Cholesterol, Calculated 17 mg/dL (0-40) Non-HDL Cholesterol Calculated 88 mg/dL (0-129) HDL Cholesterol 85 mg/dL (40-60) Cholesterol/HDL Ratio 2.0 Ethyl Alcohol Level < 10 mg/dL (0-10) Glucose (Fingerstick) 85 mg/dL (70-99) Test 02/20/19 15:15 02/20/19 17:01 Troponin I Quantitative < 0.017 ng/mL (0.000-0.055) Glucose (Fingerstick) 132 mg/dL (70-99) Laboratory Tests Test 02/20/19 07:15 02/20/19 08:20 02/20/19 11:45 02/20/19 12:13 Urine Collection Type Void Urine Color Yellow Urine Clarity Clear Urine pH 5.0 Urine Specific [place] 1.015 Urine Protein Negative mg/dL (NEG-TRACE) Urine Glucose (UA) Negative mg/dL (NEG) Urine Ketones (Stick) Negative mg/dL (NEG) Urine Blood Negative (NEG) Urine Nitrite Negative (NEG) Urine Bilirubin Negative (NEG) Urine Urobilinogen Dipstick 0.2 mg/dL (0.2 mg/dL) Urine Leukocyte Esterase Negative (NEG) Urine RBC Occ /HPF (0-2) Urine WBC Occ /HPF (0-4) Urine Squamous Epithelial Cells Mod /LPF Urine Bacteria Few /HPF (0-FEW) Urine Mucus Mod /LPF Urine Opiates Screen Neg (NEG) Urine Methadone Screen Neg (NEG) Urine Barbiturates Neg (NEG) Urine Phencyclidine Screen Neg (NEG) Urine Amphetamine/Methamphetamine Neg (NEG) Urine Benzodiazepines Screen Neg (NEG) Urine Cocaine Screen Pos (NEG) Urine Cannabinoids Screen Neg (NEG) Urine Ethyl Alcohol Neg (NEG) White Blood Count 8.4 x10^3/uL (4.0-11.0) Red Blood Count 4.94 x10^6/uL (3.50-5.40) Hemoglobin 14.7 g/dL (12.0-15.5) Hematocrit 43.2 % (36.0-47.0) Mean Corpuscular Volume 88 fL (79-100) Mean Corpuscular Hemoglobin 30 pg (25-35) Mean Corpuscular Hemoglobin Concent 34 g/dL (31-37) Red Cell Distribution Width 14.1 % (11.5-14.5) Platelet Count 273 x10^3/uL (140-400) Neutrophils (%) (Auto) 59 % (31-73) Lymphocytes (%) (Auto) 29 % (24-48) Monocytes (%) (Auto) 8 % (0-9) Eosinophils (%) (Auto) 3 % (0-3) Basophils (%) (Auto) 1 % (0-3) Neutrophils # (Auto) 5.0 x10^3uL (1.8-7.7) Lymphocytes # (Auto) 2.5 x10^3/uL (1.0-4.8) Monocytes # (Auto) 0.7 x10^3/uL (0.0-1.1) Eosinophils # (Auto) 0.2 x10^3/uL (0.0-0.7) Basophils # (Auto) 0.1 x10^3/uL (0.0-0.2) Erythrocyte Sedimentation Rate 15 (0-25) Sodium Level 141 mmol/L (136-145) Potassium Level 3.7 mmol/L (3.5-5.1) Chloride Level 103 mmol/L (98-107) Carbon Dioxide Level 23 mmol/L (21-32) Anion Gap 15 (6-14) Blood Urea Nitrogen 8 mg/dL (7-20) Creatinine 0.7 mg/dL (0.6-1.0) Estimated GFR (Cockcroft-Gault) 104.7 BUN/Creatinine Ratio 11 (6-20) Glucose Level 92 mg/dL (70-99) Lactic Acid Level 1.0 mmol/L (0.4-2.0) Uric Acid 5.3 mg/dL (2.6-6.0) Calcium Level 9.5 mg/dL (8.5-10.1) Magnesium Level 2.1 mg/dL (1.8-2.4) Total Bilirubin 0.7 mg/dL (0.2-1.0) Aspartate Amino Transf (AST/SGOT) 21 U/L (15-37) Alanine Aminotransferase (ALT/SGPT) 25 U/L (14-59) Alkaline Phosphatase 85 U/L (46-116) Creatine Kinase 184 U/L (26-192) Troponin I Quantitative 0.163 ng/mL (0.000-0.055) < 0.017 ng/mL (0.000-0.055) Total Protein 7.4 g/dL (6.4-8.2) Albumin 4.0 g/dL (3.4-5.0) Albumin/Globulin Ratio 1.2 (1.0-1.7) Triglycerides Level 86 mg/dL (0-150) Cholesterol Level 173 mg/dL (0-200) LDL Cholesterol, Calculated 71 mg/dL (0-100) VLDL Cholesterol, Calculated 17 mg/dL (0-40) Non-HDL Cholesterol Calculated 88 mg/dL (0-129) HDL Cholesterol 85 mg/dL (40-60) Cholesterol/HDL Ratio 2.0 Ethyl Alcohol Level < 10 mg/dL (0-10) Glucose (Fingerstick) 85 mg/dL (70-99) Test 02/20/19 15:15 02/20/19 17:01 Troponin I Quantitative < 0.017 ng/mL (0.000-0.055) Glucose (Fingerstick) 132 mg/dL (70-99) Assessment/Plan Assessment/Plan 58 year old female with clinical onychomycosis, cellulitis to right hallux, paronychia right hallux -Discussed treatment options. She would like to proceed with incision and drainage with total nail avulsion right hallux. -Obtained written and oral consent. -See procedure note. -Patient also with clinical onychomycosis. Discussed treatment options topical versus oral antifungal. She would like to proceed with oral antifungal. Evaluated AST and ALT and note within normal limits -Begin RX Terbinafine 250mg po daily x 90 days. -Discussed she should observe nail clearing in 3-4 months and continue process for 9-12 months. -If treatment with oral antifungal fails then she is to consider chemical matrixectomy. -Begin BID saline soak or compress 15 minutes BID and application of bacitracin and bandaid starting tomorrow BID. -Follow up in my office in 2 weeks. Call for appointment [phone] JOSE RAMON RIOS DPM February 20, 2019 18:15
[2019-02-20] MEDS: ACETAMINOPHEN 325 MG TABLET. PO PRN (18:28)
[2019-02-20] MEDS: metroNIDAZOLE 500 MG TABLET PO SCH (18:31)
[2019-02-20] MEDS ORDERED: ALBUTEROL SULFATE 2.5 MG/3 ML NEBU. NEB PRN (19:00)
[2019-02-20 19:48] VITALS: BP 161/81
[2019-02-20] MEDS: BACITRACIN TOPICAL OINT 14GM TUBE. TP SCH (21:07)
[2019-02-20] MEDS: LACTOBACILLUS RHAMNOSUS GG 1 CAPSULE. PO SCH (21:07)
[2019-02-20 23:35] VITALS: BP 128/58
[2019-02-21] MEDS: VANCOMYCIN 1 GM in IV NORMAL SALINE 250ML 250 ML IV SCH ×2 (01:57→14:13)
[2019-02-21 03:50] VITALS: BP 138/68
[2019-02-21 04:15] LABS: BASO % 1 % (0-3); EOS # 0.2 x10^3/uL (0.0-0.7); EOS % 4 % (0-3); HEMATOCRIT 38.6 % (36.0-47.0); HEMOGLOBIN 12.9 g/dL (12.0-15.5); LYMPH # 1.6 x10^3/uL (1.0-4.8); LYMPH % 29 % (24-48); MEAN CORPUSCULAR HEMOGLOBIN 30 pg (25-35); MEAN CORPUSCULAR HGB CONC 34 g/dL (31-37); MEAN CORPUSCULAR VOLUME 88 fL (79-100); MONO # 0.4 x10^3/uL (0.0-1.1); MONO % 8 % (0-9); NEUT # 3.1 x10^3uL (1.8-7.7); NEUT % 58 % (31-73); PLATELET COUNT 220 x10^3/uL (140-400); RED BLOOD COUNT 4.36 x10^6/uL (3.50-5.40); RED CELL DISTRIBUTION WIDTH 14.2 % (11.5-14.5); WHITE BLOOD COUNT 5.4 x10^3/uL (4.0-11.0)
[2019-02-21 04:30] LABS: ALBUMIN 2.9 g/dL (3.4-5.0); CREATININE 0.7 mg/dL (0.6-1.0); GFR 104.7; POTASSIUM 3.3 mmol/L (3.5-5.1); TOTAL BILIRUBIN 0.4 mg/dL (0.2-1.0); TOTAL PROTEIN 5.9 g/dL (6.4-8.2)
[2019-02-21] MEDS: LEVOTHYROXINE 25 MCG TABLET. PO SCH (06:33)
[2019-02-21] MEDS: PANTOPRAZOLE 40 MG TABLET.DR. PO SCH (06:34)
[2019-02-21 07:30] VITALS: BP 139/74
[2019-02-21] MEDS ORDERED: POTASSIUM CHLORIDE 20 MEQ TABLET.ER. PO ONE ×3 (07:30→13:45)
[2019-02-21] MEDS: ACETAMINOPHEN 325 MG TABLET. PO PRN ×2 (07:55→17:45)
[2019-02-21] MEDS: hydroCHLOROthiazide 25 MG TABLET PO SCH (07:56)
[2019-02-21] MEDS: ASPIRIN CHEWABLE 81 MG TABLET. PO SCH (07:56)
[2019-02-21] MEDS: amLODIPine BESYLATE 5 MG TABLET PO SCH (07:56)
[2019-02-21] MEDS: metroNIDAZOLE 500 MG TABLET PO SCH ×2 (07:57→21:32)
[2019-02-21] MEDS: metFORMIN 500 MG TABLET PO SCH (07:57)
[2019-02-21] MEDS ORDERED: THIAMINE INJ 100 MG in IV DEXTROSE 5% 50 ML IV SCH (09:00)
--- NOTE | 2019-02-21 10:05 | PDOC ---
PROGRESS NOTES History of Present Illness History of Present Illness Assessment/Plan Assessment/Plan Impression: 1. No acute intracranial abnormality is identified by CT. 2. prominence of bifrontal subarachnoid spaces which may be due to involutional change. 3. reported syncopal episode 4. alcohol abuse 5. cocaine abuse 6. elevated troponin i, high risk admit for CAD 7. DM2 8. Hypothyroidism 9.. Tobacco abuse disorder plan 1. admit cvc 2. neurology consult 3. neurochecks q 4 hrs 4. counseled on need to seek drug treatment program provided 5. cardiology consult 6. dvt prophylaxis 7. gi prophylaxis 8. echo 9. trend troponin i 10. dvt prophylaxis 11. gi prophylaxis 12, alcohol withdrawal precautions 13. consider for outpt stress test pending test and complaince with cessation of substance abuse. PROCEDURE Procedure Pre op Diagnosis: Paronychia right hallux Post op DX: Same Procedure: Incision and drainage with total nail avulsion right hallux Anesthesia: hallux block 6mL of 1% lidocaine plain Surgeon: Dr. Chu 42 min pt exam,chart review, > 50% of time spent with exam, chart review, pt care coordination Vitals Vitals Vital Signs Date Time Temp Pulse Resp B/P (MAP) Pulse Ox O2 Delivery O2 Flow Rate FiO2 02/21/19 07:56 87 139/74 02/21/19 07:30 98.1 18 98 Room Air 98.1 Physical Exam General: Alert, Oriented X3, No acute distress Heart: Regular rate (SR), Normal S1, Normal S2, No murmurs Lungs: Clear Abdomen: Normal bowel sounds, Soft Extremities: No clubbing, No cyanosis (edal pulses), No edema Skin: No breakdown, No significant lesion Labs LABS Laboratory Tests Test 02/20/19 11:45 02/20/19 12:13 02/20/19 15:15 02/20/19 17:01 Troponin I Quantitative < 0.017 ng/mL (0.000-0.055) < 0.017 ng/mL (0.000-0.055) Glucose (Fingerstick) 85 mg/dL (70-99) 132 mg/dL (70-99) Test 02/20/19 20:53 02/21/19 03:30 02/21/19 07:14 Glucose (Fingerstick) 126 mg/dL (70-99) 100 mg/dL (70-99) White Blood Count 5.4 x10^3/uL (4.0-11.0) Red Blood Count 4.36 x10^6/uL (3.50-5.40) Hemoglobin 12.9 g/dL (12.0-15.5) Hematocrit 38.6 % (36.0-47.0) Mean Corpuscular Volume 88 fL (79-100) Mean Corpuscular Hemoglobin 30 pg (25-35) Mean Corpuscular Hemoglobin Concent 34 g/dL (31-37) Red Cell Distribution Width 14.2 % (11.5-14.5) Platelet Count 220 x10^3/uL (140-400) Neutrophils (%) (Auto) 58 % (31-73) Lymphocytes (%) (Auto) 29 % (24-48) Monocytes (%) (Auto) 8 % (0-9) Eosinophils (%) (Auto) 4 % (0-3) Basophils (%) (Auto) 1 % (0-3) Neutrophils # (Auto) 3.1 x10^3uL (1.8-7.7) Lymphocytes # (Auto) 1.6 x10^3/uL (1.0-4.8) Monocytes # (Auto) 0.4 x10^3/uL (0.0-1.1) Eosinophils # (Auto) 0.2 x10^3/uL (0.0-0.7) Basophils # (Auto) 0.0 x10^3/uL (0.0-0.2) Sodium Level 145 mmol/L (136-145) Potassium Level 3.3 mmol/L (3.5-5.1) Chloride Level 109 mmol/L (98-107) Carbon Dioxide Level 25 mmol/L (21-32) Anion Gap 11 (6-14) Blood Urea Nitrogen 11 mg/dL (7-20) Creatinine 0.7 mg/dL (0.6-1.0) Estimated GFR (Cockcroft-Gault) 104.7 BUN/Creatinine Ratio 16 (6-20) Glucose Level 151 mg/dL (70-99) Calcium Level 9.0 mg/dL (8.5-10.1) Total Bilirubin 0.4 mg/dL (0.2-1.0) Aspartate Amino Transf (AST/SGOT) 12 U/L (15-37) Alanine Aminotransferase (ALT/SGPT) 18 U/L (14-59) Alkaline Phosphatase 82 U/L (46-116) Total Protein 5.9 g/dL (6.4-8.2) Albumin 2.9 g/dL (3.4-5.0) Albumin/Globulin Ratio 1.0 (1.0-1.7) Assessment and Plan Assessmemt and Plan Problems Medical Problems: (1) Cocaine abuse Status: Acute (2) Diabetic infection of right foot Status: Acute (3) Elevated troponin I level Status: Acute (4) Headache Status: Acute (5) Syncope Status: Acute (6) Tobacco abuse Status: Acute (7) Tobacco abuse counseling Status: Acute Comment Review of Relevant I have reviewed the following items paresh (where applicable) has been applied. Labs Laboratory Tests Test 02/20/19 07:15 02/20/19 08:20 02/20/19 11:45 02/20/19 12:13 Urine Collection Type Void Urine Color Yellow Urine Clarity Clear Urine pH 5.0 Urine Specific [employer] 1.015 Urine Protein Negative mg/dL (NEG-TRACE) Urine Glucose (UA) Negative mg/dL (NEG) Urine Ketones (Stick) Negative mg/dL (NEG) Urine Blood Negative (NEG) Urine Nitrite Negative (NEG) Urine Bilirubin Negative (NEG) Urine Urobilinogen Dipstick 0.2 mg/dL (0.2 mg/dL) Urine Leukocyte Esterase Negative (NEG) Urine RBC Occ /HPF (0-2) Urine WBC Occ /HPF (0-4) Urine Squamous Epithelial Cells Mod /LPF Urine Bacteria Few /HPF (0-FEW) Urine Mucus Mod /LPF Urine Opiates Screen Neg (NEG) Urine Methadone Screen Neg (NEG) Urine Barbiturates Neg (NEG) Urine Phencyclidine Screen Neg (NEG) Urine Amphetamine/Methamphetamine Neg (NEG) Urine Benzodiazepines Screen Neg (NEG) Urine Cocaine Screen Pos (NEG) Urine Cannabinoids Screen Neg (NEG) Urine Ethyl Alcohol Neg (NEG) White Blood Count 8.4 x10^3/uL (4.0-11.0) Red Blood Count 4.94 x10^6/uL (3.50-5.40) Hemoglobin 14.7 g/dL (12.0-15.5) Hematocrit 43.2 % (36.0-47.0) Mean Corpuscular Volume 88 fL (79-100) Mean Corpuscular Hemoglobin 30 pg (25-35) Mean Corpuscular Hemoglobin Concent 34 g/dL (31-37) Red Cell Distribution Width 14.1 % (11.5-14.5) Platelet Count 273 x10^3/uL (140-400) Neutrophils (%) (Auto) 59 % (31-73) Lymphocytes (%) (Auto) 29 % (24-48) Monocytes (%) (Auto) 8 % (0-9) Eosinophils (%) (Auto) 3 % (0-3) Basophils (%) (Auto) 1 % (0-3) Neutrophils # (Auto) 5.0 x10^3uL (1.8-7.7) Lymphocytes # (Auto) 2.5 x10^3/uL (1.0-4.8) Monocytes # (Auto) 0.7 x10^3/uL (0.0-1.1) Eosinophils # (Auto) 0.2 x10^3/uL (0.0-0.7) Basophils # (Auto) 0.1 x10^3/uL (0.0-0.2) Erythrocyte Sedimentation Rate 15 (0-25) Sodium Level 141 mmol/L (136-145) Potassium Level 3.7 mmol/L (3.5-5.1) Chloride Level 103 mmol/L (98-107) Carbon Dioxide Level 23 mmol/L (21-32) Anion Gap 15 (6-14) Blood Urea Nitrogen 8 mg/dL (7-20) Creatinine 0.7 mg/dL (0.6-1.0) Estimated GFR (Cockcroft-Gault) 104.7 BUN/Creatinine Ratio 11 (6-20) Glucose Level 92 mg/dL (70-99) Lactic Acid Level 1.0 mmol/L (0.4-2.0) Uric Acid 5.3 mg/dL (2.6-6.0) Calcium Level 9.5 mg/dL (8.5-10.1) Magnesium Level 2.1 mg/dL (1.8-2.4) Total Bilirubin 0.7 mg/dL (0.2-1.0) Aspartate Amino Transf (AST/SGOT) 21 U/L (15-37) Alanine Aminotransferase (ALT/SGPT) 25 U/L (14-59) Alkaline Phosphatase 85 U/L (46-116) Creatine Kinase 184 U/L (26-192) Troponin I Quantitative 0.163 ng/mL (0.000-0.055) < 0.017 ng/mL (0.000-0.055) Total Protein 7.4 g/dL (6.4-8.2) Albumin 4.0 g/dL (3.4-5.0) Albumin/Globulin Ratio 1.2 (1.0-1.7) Triglycerides Level 86 mg/dL (0-150) Cholesterol Level 173 mg/dL (0-200) LDL Cholesterol, Calculated 71 mg/dL (0-100) VLDL Cholesterol, Calculated 17 mg/dL (0-40) Non-HDL Cholesterol Calculated 88 mg/dL (0-129) HDL Cholesterol 85 mg/dL (40-60) Cholesterol/HDL Ratio 2.0 Ethyl Alcohol Level < 10 mg/dL (0-10) Glucose (Fingerstick) 85 mg/dL (70-99) Test 02/20/19 15:15 02/20/19 17:01 02/20/19 20:53 02/21/19 03:30 Troponin I Quantitative < 0.017 ng/mL (0.000-0.055) Glucose (Fingerstick) 132 mg/dL (70-99) 126 mg/dL (70-99) White Blood Count 5.4 x10^3/uL (4.0-11.0) Red Blood Count 4.36 x10^6/uL (3.50-5.40) Hemoglobin 12.9 g/dL (12.0-15.5) Hematocrit 38.6 % (36.0-47.0) Mean Corpuscular Volume 88 fL (79-100) Mean Corpuscular Hemoglobin 30 pg (25-35) Mean Corpuscular Hemoglobin Concent 34 g/dL (31-37) Red Cell Distribution Width 14.2 % (11.5-14.5) Platelet Count 220 x10^3/uL (140-400) Neutrophils (%) (Auto) 58 % (31-73) Lymphocytes (%) (Auto) 29 % (24-48) Monocytes (%) (Auto) 8 % (0-9) Eosinophils (%) (Auto) 4 % (0-3) Basophils (%) (Auto) 1 % (0-3) Neutrophils # (Auto) 3.1 x10^3uL (1.8-7.7) Lymphocytes # (Auto) 1.6 x10^3/uL (1.0-4.8) Monocytes # (Auto) 0.4 x10^3/uL (0.0-1.1) Eosinophils # (Auto) 0.2 x10^3/uL (0.0-0.7) Basophils # (Auto) 0.0 x10^3/uL (0.0-0.2) Sodium Level 145 mmol/L (136-145) Potassium Level 3.3 mmol/L (3.5-5.1) Chloride Level 109 mmol/L (98-107) Carbon Dioxide Level 25 mmol/L (21-32) Anion Gap 11 (6-14) Blood Urea Nitrogen 11 mg/dL (7-20) Creatinine 0.7 mg/dL (0.6-1.0) Estimated GFR (Cockcroft-Gault) 104.7 BUN/Creatinine Ratio 16 (6-20) Glucose Level 151 mg/dL (70-99) Calcium Level 9.0 mg/dL (8.5-10.1) Total Bilirubin 0.4 mg/dL (0.2-1.0) Aspartate Amino Transf (AST/SGOT) 12 U/L (15-37) Alanine Aminotransferase (ALT/SGPT) 18 U/L (14-59) Alkaline Phosphatase 82 U/L (46-116) Total Protein 5.9 g/dL (6.4-8.2) Albumin 2.9 g/dL (3.4-5.0) Albumin/Globulin Ratio 1.0 (1.0-1.7) Test 02/21/19 07:14 Glucose (Fingerstick) 100 mg/dL (70-99) Laboratory Tests Test 02/20/19 11:45 02/20/19 12:13 02/20/19 15:15 02/20/19 17:01 Troponin I Quantitative < 0.017 ng/mL (0.000-0.055) < 0.017 ng/mL (0.000-0.055) Glucose (Fingerstick) 85 mg/dL (70-99) 132 mg/dL (70-99) Test 02/20/19 20:53 02/21/19 03:30 02/21/19 07:14 Glucose (Fingerstick) 126 mg/dL (70-99) 100 mg/dL (70-99) White Blood Count 5.4 x10^3/uL (4.0-11.0) Red Blood Count 4.36 x10^6/uL (3.50-5.40) Hemoglobin 12.9 g/dL (12.0-15.5) Hematocrit 38.6 % (36.0-47.0) Mean Corpuscular Volume 88 fL (79-100) Mean Corpuscular Hemoglobin 30 pg (25-35) Mean Corpuscular Hemoglobin Concent 34 g/dL (31-37) Red Cell Distribution Width 14.2 % (11.5-14.5) Platelet Count 220 x10^3/uL (140-400) Neutrophils (%) (Auto) 58 % (31-73) Lymphocytes (%) (Auto) 29 % (24-48) Monocytes (%) (Auto) 8 % (0-9) Eosinophils (%) (Auto) 4 % (0-3) Basophils (%) (Auto) 1 % (0-3) Neutrophils # (Auto) 3.1 x10^3uL (1.8-7.7) Lymphocytes # (Auto) 1.6 x10^3/uL (1.0-4.8) Monocytes # (Auto) 0.4 x10^3/uL (0.0-1.1) Eosinophils # (Auto) 0.2 x10^3/uL (0.0-0.7) Basophils # (Auto) 0.0 x10^3/uL (0.0-0.2) Sodium Level 145 mmol/L (136-145) Potassium Level 3.3 mmol/L (3.5-5.1) Chloride Level 109 mmol/L (98-107) Carbon Dioxide Level 25 mmol/L (21-32) Anion Gap 11 (6-14) Blood Urea Nitrogen 11 mg/dL (7-20) Creatinine 0.7 mg/dL (0.6-1.0) Estimated GFR (Cockcroft-Gault) 104.7 BUN/Creatinine Ratio 16 (6-20) Glucose Level 151 mg/dL (70-99) Calcium Level 9.0 mg/dL (8.5-10.1) Total Bilirubin 0.4 mg/dL (0.2-1.0) Aspartate Amino Transf (AST/SGOT) 12 U/L (15-37) Alanine Aminotransferase (ALT/SGPT) 18 U/L (14-59) Alkaline Phosphatase 82 U/L (46-116) Total Protein 5.9 g/dL (6.4-8.2) Albumin 2.9 g/dL (3.4-5.0) Albumin/Globulin Ratio 1.0 (1.0-1.7) Medications Current Medications Sodium Chloride 1,000 ml @ 1,000 mls/hr 1X ONCE IV Last administered on 02/20/19at 08:24; Start 02/20/19 at 07:30; Stop 02/20/19 at 08:29; Status DC Meclizine HCl (Antivert) 25 mg 1X ONCE PO Last administered on 02/20/19at 09:28; Start 02/20/19 at 09:30; Stop 02/20/19 at 09:31; Status DC Ceftriaxone Sodium (Rocephin) 1 gm 1X ONCE IVP Last administered on 02/20/19at 09:28; Start 02/20/19 at 09:30; Stop 02/20/19 at 09:31; Status DC Aspirin (Children'S Aspirin) 324 mg 1X ONCE PO Last administered on 02/20/19at 09:28; Start 02/20/19 at 09:30; Stop 02/20/19 at 09:31; Status DC Fentanyl Citrate (Fentanyl 2ml Vial) 50 mcg 1X ONCE IV ; Start 02/20/19 at 09:45; Stop 02/20/19 at 09:46; Status DC Multivitamins 10 ml/Thiamine HCl 100 mg/Folic Acid 1 mg/Sodium Chloride 1,011.2 ml @ 100 mls/ hr DAILY IV Last administered on 02/20/19at 11:18; Start 02/20/19 at 11:00; Stop 02/24/19 at 19:07 Multivitamins (Thera M Plus) 1 tab DAILY PO Last administered on 02/20/19at 12:30; Start 02/20/19 at 11:00; Stop 02/20/19 at 15:13; Status DC Folic Acid (Folic Acid) 1 mg DAILY PO Last administered on 02/20/19at 12:30; Start 02/20/19 at 11:00; Stop 02/20/19 at 15:13; Status DC Thiamine HCl 100 mg/Dextrose 51 ml @ 100 mls/hr DAILY IV ; Start 02/21/19 at 09:00; Stop 02/25/19 at 09:31; Status UNV Lorazepam (Ativan) 4 mg PRN Q1HR PRN PO For CIWA 8-14; Start 02/20/19 at 10:15 Lorazepam (Ativan) 8 mg PRN Q1HR PRN PO For CIWA 15 or greater; Start 02/20/19 at 10:15 Lorazepam (Ativan Inj) 2 mg PRN Q1HR PRN IV For CIWA 8-14 Last administered on 02/20/19at 19:59; Start 02/20/19 at 10:15 Lorazepam (Ativan Inj) 4 mg PRN Q1HR PRN IV For CIWA 15 or greater; Start 02/20/19 at 10:15 Haloperidol Lactate (Haldol Inj) 5 mg PRN Q4HRS PRN IVP Hallucinatns,Confusn,Delirium; Start 02/20/19 at 10:15 Diphenhydramine HCl (Benadryl) 25 mg PRN Q15MIN PRN IVP EPS symptoms 2'Haldol admin; Start 02/20/19 at 10:15 Clonidine HCl (Catapres) 0.1 mg PRN Q1HR PRN PO SBP > 180 or DBP > 100, MRX3; Start 02/20/19 at 10:15; Stop 02/20/19 at 15:12; Status DC Lorazepam (Ativan Inj) 2 mg PRN Q15MIN PRN IV SEE COMMENTS; Start 02/20/19 at 10:15; Status UNV Lorazepam (Ativan Inj) 4 mg PRN Q15MIN PRN IV SEE COMMENTS; Start 02/20/19 at 10:15; Status UNV Amlodipine Besylate (Norvasc) 5 mg DAILY PO Last administered on 02/21/19at 07:56; Start 02/20/19 at 11:00 Aspirin (Children'S Aspirin) 81 mg DAILY PO Last administered on 02/21/19at 07:56; Start 02/20/19 at 11:00 Atorvastatin Calcium (Lipitor) 20 mg DAILY PO ; Start 02/20/19 at 11:00 Hydrochlorothiazide (Hydrodiuril) 25 mg DAILY PO Last administered on 02/21/19at 07:56; Start 02/20/19 at 11:00 Levothyroxine Sodium (Synthroid) 25 mcg DAILY06 PO Last administered on 02/21/19at 06:33; Start 02/20/19 at 11:00 Metformin HCl (Glucophage) 1,000 mg BIDWMEALS PO Last administered on 02/20/19at 17:00; Start 02/20/19 at 12:00; Stop 02/20/19 at 17:00; Status DC Thiamine Mononitrate (Vitamin B-1) 100 mg DAILY PO Last administered on 02/20/19at 12:30; Start 02/20/19 at 11:00; Stop 02/20/19 at 15:12; Status DC Pantoprazole Sodium (Protonix) 40 mg DAILYAC PO Last administered on 02/21/19at 06:34; Start 02/20/19 at 12:30 Enoxaparin Sodium (Lovenox 40mg Syringe) 40 mg Q24H SQ Last administered on 02/20/19at 17:24; Start 02/20/19 at 16:00 Sodium Chloride (Normal Saline Flush) 3 ml QSHIFT PRN IV AFTER MEDS AND BLOOD DRAWS; Start 02/20/19 at 12:15 Multivitamins 10 ml/Thiamine HCl 100 mg/Folic Acid 1 mg/Sodium Chloride 1,011.2 ml @ 125 mls/ hr Q8H IV ; Start 02/20/19 at 12:15; Status UNV Ondansetron HCl (Zofran) 4 mg PRN Q4HRS PRN IV NAUSEA/VOMITING; Start 02/20/19 at 12:15 Zolpidem Tartrate (Ambien) 5 mg PRN QHS PRN PO INSOMNIA; Start 02/20/19 at 12:15 Acetaminophen (Tylenol) 650 mg PRN Q4HRS PRN PO TEMP OVER 100.4F OR MILD PAIN Last administered on 02/21/19at 07:55; Start 02/20/19 at 12:15 Al Hydroxide/Mg Hydroxide (Mylanta Plus Xs) 30 ml PRN DAILY PRN PO HEARTBURN / GAS; Start 02/20/19 at 12:15 Clonidine HCl (Catapres) 0.1 mg PRN Q6HRS PRN PO SBP>160 OR DBP>90; Start 02/20/19 at 12:15 Docusate Sodium (Colace) 100 mg PRN BID PRN PO CONSTIPATION; Start 02/20/19 at 12:15 Albuterol/ Ipratropium (Duoneb) 3 ml Q4H NEB Last administered on 02/20/19at 16:00; Start 02/20/19 at 12:00; Stop 02/20/19 at 18:44; Status DC Guaifenesin (Robitussin) 200 mg PRN Q4HRS PRN PO COUGH; Start 02/20/19 at 12:15 Lorazepam (Ativan) 0.5 mg PRN Q4HRS PRN PO ANXIETY / AGITATION; Start 02/20/19 at 12:15 Lorazepam (Ativan Inj) 2 mg PRN Q4HRS PRN IV ANXIETY / AGITATION; Start 02/20/19 at 12:15 Vancomycin HCl 1 gm/Dextrose 250 ml @ 250 mls/hr 1X ONCE IV ; Start 02/20/19 at 12:15; Stop 02/20/19 at 13:14; Status UNV Vancomycin HCl (Vanco Per Pharmacy) 1 each PRN DAILY PRN MC SEE COMMENTS Last administered on 02/20/19at 15:16; Start 02/20/19 at 12:45 Vancomycin HCl 1.5 gm/Sodium Chloride 500 ml @ 250 mls/hr 1X ONCE IV Last administered on 02/20/19at 14:10; Start 02/20/19 at 13:00; Stop 02/20/19 at 14:59; Status DC Vancomycin HCl 1 gm/Sodium Chloride 250 ml @ 250 mls/hr Q12H IV Last administered on 02/21/19at 01:57; Start 02/21/19 at 02:00 Vancomycin HCl (Vancomycin Trough Level) 1 each 1X ONCE MC ; Start 02/22/19 at 01:30; Stop 02/22/19 at 01:31 Thiamine Mononitrate (Vitamin B-1) 100 mg DAILY PO ; Start 02/25/19 at 09:00 Folic Acid (Folic Acid) 1 mg DAILY PO ; Start 02/25/19 at 09:00 Multivitamins (Thera M Plus) 1 tab DAILY PO ; Start 02/25/19 at 09:00 Lactobacillus Rhamnosus (Culturelle) 1 cap BID PO Last administered on 02/20/19at 21:07; Start 02/20/19 at 21:00 Metformin HCl (Glucophage) 1,000 mg DAILY08 PO Last administered on 02/21/19at 07:57; Start 02/21/19 at 08:00 Lidocaine HCl (Xylocaine 1% Pf 30ml Vial) 30 ml 1X ONCE INJ Last administered on 02/20/19at 17:15; Start 02/20/19 at 17:15; Stop 02/20/19 at 17:16; Status DC Neomycin/ Polymyxin/ Bacitracin (Triple Antibiotic Ointment) 1 pkt 1X ONCE TP Last administered on 02/20/19at 17:15; Start 02/20/19 at 17:15; Stop 02/20/19 at 17:16; Status DC Metronidazole (Flagyl) 500 mg Q12HR PO Last administered on 02/21/19at 07:57; Start 02/20/19 at 18:00 Acetaminophen (Tylenol) 650 mg PRN Q6HRS PRN PO FOOT PAIN; Start 02/20/19 at 18:15 Bacitracin 1 quentin BID TP Last administered on 02/20/19at 21:07; Start 02/20/19 at 21:00 Acetaminophen (Tylenol) 500 mg PRN Q6HRS PRN PO MILD PAIN / TEMP; Start 02/20/19 at 18:15; Status UNV Albuterol Sulfate (Ventolin Neb Soln) 2.5 mg PRN Q4HRS PRN NEB SHORTNESS OF BREATH; Start 02/20/19 at 19:00 Potassium Chloride (Klor-Con) 40 meq 1X ONCE PO Last administered on 02/21/19at 07:58; Start 02/21/19 at 07:30; Stop 02/21/19 at 07:31; Status DC Potassium Chloride (Klor-Con) 40 meq 1X ONCE PO ; Start 02/21/19 at 09:30; Stop 02/21/19 at 09:31; Status DC Active Scripts Active Reported Atorvastatin Calcium 20 Mg Tablet 1 Tab PO DAILY Metformin Hcl 1,000 Mg Tablet 1,000 Mg PO BIDWMEALS Aspirin 81 Mg Tab.chew 1 Tab PO DAILY Levothyroxine Sodium 25 Mcg Tablet 1 Tab PO DAILY Hydrochlorothiazide Tablet (Hydrochlorothiazide) 25 Mg Tablet 25 Mg PO DAILY Amlodipine Besylate 5 Mg Tablet 5 Mg PO DAILY Vitals/I & O Vital Sign - Last 24 Hours 02/20/19 02/20/19 02/20/19 02/20/19 10:25 11:00 12:34 15:17 Temp 98.4 98.1 98.4 98.1 Pulse 72 72 83 Resp 16 16 B/P (MAP) 160/88 (112) 160/88 110/63 (79) Pulse Ox 97 97 O2 Delivery Room Air Room Air Room Air 02/20/19 02/20/19 02/20/19 02/20/19 16:32 19:48 20:00 23:35 Temp 97.6 98.2 97.6 98.2 Pulse 90 84 Resp 18 16 B/P (MAP) 161/81 (107) 128/58 (81) Pulse Ox 97 98 96 O2 Delivery Room Air Room Air Room Air Room Air 02/21/19 02/21/19 02/21/19 03:50 07:30 07:56 Temp 98.2 98.1 98.2 98.1 Pulse 73 87 87 Resp 18 B/P (MAP) 138/68 (91) 139/74 (95) 139/74 Pulse Ox 98 98 O2 Delivery Room Air Room Air Intake and Output 02/20/19 02/20/19 02/21/19 14:59 22:59 06:59 Intake Total 360 ml 120 ml 470 ml Output Total 600 ml 1700 ml Balance 360 ml -480 ml -1230 ml NACHO MAK MD February 21, 2019 10:04
[2019-02-21] MEDS: VANCOMYCIN PER PHARMACY MC PRN (10:19)
[2019-02-21] MEDS: ATORVASTATIN CALCIUM 20 MG TABLET PO SCH (10:47)
[2019-02-21] MEDS: LACTOBACILLUS RHAMNOSUS GG 1 CAPSULE. PO SCH ×2 (10:47→21:32)
[2019-02-21] MEDS: MULTIVIT INFUSN,ADULT 4,VIT K 10 ML, THIAMINE INJ 100 MG, FOLIC ACID INJ 1 MG in IV NOR... IV SCH (10:48)
[2019-02-21 11:00] VITALS: BP 124/80
[2019-02-21] MEDS: LORazepam 0.5 MG TABLET PO PRN ×2 (14:19→21:32)
[2019-02-21] MEDS: BACITRACIN TOPICAL OINT 14GM TUBE. TP SCH ×2 (14:28→21:33)
[2019-02-21] MEDS: IBUPROFEN 200 MG TABLET. PO PRN (14:30)
--- NOTE | 2019-02-21 14:56 | PDOC ---
PROGRESS NOTES Assessment Assessment Syncopal spell. Dizziness. Increased headache. DM. HTN. HLD. Hypothyroidism. Cocaine positive. RECOMMENDATIONS/PLAN: ASA 81 mg - 325 mg daily. Continue Lipitor HS. Brain MRI w/o contrast.. Consulted cardiology. HISTORY OF THE PRESENT ILLNESS: his is a 58-y-old AA female admitted with complaints of right big toe pain and passing out. Reports that in the last 2 days she has been having right big toe pain. This is tender and slightly swollen. No hx of gout but does drink ETOH and denies heavy ingestion nor binge use. Reports no KENYON nor exertional CP in the last week. She is however stressed out at work due to her boss. Reports that this morning when she got up and started walking to towards the bathroom she got dizzy and passed out. She was standing and the next thing she was on the floor no apparent injury sustained. No visual or auditory disturbances, dysarthria but kenyon shave occasional AMBROSE. No bowel incontinence. She complained persistent headache and dizziness on 02/21/19. PAST MEDICAL HISTORY Cardiovascular: HTN, Hyperlipidemia Pulmonary: No pertinent hx CENTRAL NERVOUS SYSTEM: Seizure, Other (AMBROSE) GI: No pertinent hx Heme/Onc: No pertinent hx Hepatobiliary: No pertinent hx Psych: Anxiety Musculoskeletal: Osteoarthritis Rheumatologic: No pertinent hx Infectious disease: No pertinent hx ENT: No pertinent hx Renal/: No pertinent hx Endocrine: Diabetes (2), Hypothyroidism Dermatology: No pertinent hx PAST SURGICAL HISTORY Cholecystectomy, Hernia Repair, Hysterectomy FAMILY HISTORY Noncontributory to CV ALLERGIES Coded Allergies: Penicillins (Verified Allergy, Intermediate, HIVES, 02/20/19) Sulfa (Sulfonamide Antibiotics) (Verified Adverse Reaction, Intermediate, ITCHING, 02/20/19) SOCIAL HISTORY Smoke: <1 pack per day Drugs: Cocaine ALLERGY: NKDA Unknown MEDICATIONS: Refer to MAR REVIEW OF SYSTEMS: Constitutional: No malnutrition, weight loss, cachexia. Head: No traumatic brain or head injury. Skin: No edema, or rash. Ear: No infection. Eyes: No vision loss or color blindness. Nose: No bleeding or purulent discharges. Hearing: No hearing decrease. Neck: No injury. Breast: No history of cancer, masses,or discharges. Cardiac: HTN, HLD. Pulmonary: smoking.. GI: No GI ulcer, GI bleeding. Urinary/genital: UTI. Endocrinologic: Diabetes Mellitus. Skeletomuscular: No muscular atrophy. Neurological: see HP. Psychiatric: drug use/abuse. Otherwise, not [id number] review of systems. PHYSICAL EXAMINATION: General appearance is in no acute distress. HEENT: Normocephalic and nontraumatic. Eyes, nose, ears, and throat are unremarkable. Neck is supple. No lymphadenopathy. No crepitus. Cardiovascular: S1, S2, regular rate and rhythm. Pulmonary: Clear to auscultation bilaterally. Abdomen: Bowel sounds are positive. Abdomen is soft, nontender, and nondistended. Extremities: No rash, lesions, or edema. No restriction of range of motion NEUROLOGICAL EXAMINATION: Alert Oriented to time, place and person. PERRL. EOMI. CN: no focal findings. Muscle tone: within normal. Muscle strength: 5 DTR: 2 Plantar reflex: Flexor response bilaterally Gait: not examined in bed. Sensory exam: no abnormal findings. No cerebellar signs elicited. F-T-N test accurate. Objective Objective Vital Signs Date Time Temp Pulse Resp B/P (MAP) Pulse Ox O2 Delivery O2 Flow Rate FiO2 02/21/19 11:00 96.3 89 124/80 (95) 96 Room Air 96.3 02/21/19 07:30 18 Intake and Output 02/21/19 07:00 Intake Total 950 ml Output Total 2300 ml Balance -1350 ml Intake Oral 950 ml Output Urine Total 2300 ml # Voids 2 Vitals Signs Vitals VS - Last 72 Hours, by Label Date Time Temp Pulse Resp B/P (MAP) Pulse Ox O2 Delivery O2 Flow Rate FiO2 02/21/19 11:00 96.3 89 124/80 (95) 96 Room Air 96.3 02/21/19 08:00 Room Air 02/21/19 07:56 87 139/74 02/21/19 07:30 98.1 87 18 139/74 (95) 98 Room Air 98.1 02/21/19 03:50 98.2 73 16 138/68 (91) 98 Room Air 98.2 02/20/19 23:35 98.2 84 16 128/58 (81) 96 Room Air 98.2 02/20/19 20:00 Room Air 02/20/19 19:48 97.6 90 18 161/81 (107) 98 Room Air 97.6 02/20/19 16:32 97 Room Air 02/20/19 15:17 98.1 83 16 110/63 (79) 97 Room Air 98.1 02/20/19 12:34 72 160/88 02/20/19 11:00 98.4 72 16 160/88 (112) 97 Room Air 98.4 02/20/19 10:25 Room Air 02/20/19 10:04 80 20 120/58 (78) 97 Room Air 02/20/19 09:34 80 18 154/87 (109) 97 Room Air 02/20/19 09:04 68 18 128/76 (93) 100 Room Air 02/20/19 08:34 84 20 150/82 (104) 99 Room Air 02/20/19 07:25 98.8 79 18 134/83 (100) 97 Room Air 98.8 Laboratory Laboratory Laboratory Tests Test 02/20/19 15:15 02/20/19 17:01 02/20/19 20:53 02/21/19 03:30 Troponin I Quantitative < 0.017 ng/mL (0.000-0.055) Glucose (Fingerstick) 132 mg/dL (70-99) 126 mg/dL (70-99) White Blood Count 5.4 x10^3/uL (4.0-11.0) Red Blood Count 4.36 x10^6/uL (3.50-5.40) Hemoglobin 12.9 g/dL (12.0-15.5) Hematocrit 38.6 % (36.0-47.0) Mean Corpuscular Volume 88 fL (79-100) Mean Corpuscular Hemoglobin 30 pg (25-35) Mean Corpuscular Hemoglobin Concent 34 g/dL (31-37) Red Cell Distribution Width 14.2 % (11.5-14.5) Platelet Count 220 x10^3/uL (140-400) Neutrophils (%) (Auto) 58 % (31-73) Lymphocytes (%) (Auto) 29 % (24-48) Monocytes (%) (Auto) 8 % (0-9) Eosinophils (%) (Auto) 4 % (0-3) Basophils (%) (Auto) 1 % (0-3) Neutrophils # (Auto) 3.1 x10^3uL (1.8-7.7) Lymphocytes # (Auto) 1.6 x10^3/uL (1.0-4.8) Monocytes # (Auto) 0.4 x10^3/uL (0.0-1.1) Eosinophils # (Auto) 0.2 x10^3/uL (0.0-0.7) Basophils # (Auto) 0.0 x10^3/uL (0.0-0.2) Sodium Level 145 mmol/L (136-145) Potassium Level 3.3 mmol/L (3.5-5.1) Chloride Level 109 mmol/L (98-107) Carbon Dioxide Level 25 mmol/L (21-32) Anion Gap 11 (6-14) Blood Urea Nitrogen 11 mg/dL (7-20) Creatinine 0.7 mg/dL (0.6-1.0) Estimated GFR (Cockcroft-Gault) 104.7 BUN/Creatinine Ratio 16 (6-20) Glucose Level 151 mg/dL (70-99) Calcium Level 9.0 mg/dL (8.5-10.1) Total Bilirubin 0.4 mg/dL (0.2-1.0) Aspartate Amino Transf (AST/SGOT) 12 U/L (15-37) Alanine Aminotransferase (ALT/SGPT) 18 U/L (14-59) Alkaline Phosphatase 82 U/L (46-116) Total Protein 5.9 g/dL (6.4-8.2) Albumin 2.9 g/dL (3.4-5.0) Albumin/Globulin Ratio 1.0 (1.0-1.7) Test 02/21/19 07:14 02/21/19 12:12 Glucose (Fingerstick) 100 mg/dL (70-99) 97 mg/dL (70-99) Medication Medications Current Medications Acetaminophen (Tylenol) 500 mg PRN Q6HRS PRN PO MILD PAIN / TEMP; Start 02/20/19 at 18:15; Status UNV Acetaminophen (Tylenol) 650 mg PRN Q6HRS PRN PO FOOT PAIN, FEVER; Start 02/20/19 at 18:15 Albuterol Sulfate (Ventolin Neb Soln) 2.5 mg PRN Q4HRS PRN NEB SHORTNESS OF BREATH; Start 02/20/19 at 19:00 Bacitracin 1 quentin BID TP Last administered on 02/21/19at 14:28; Start 02/20/19 at 21:00 Enoxaparin Sodium (Lovenox 40mg Syringe) 40 mg Q24H SQ Last administered on 02/20/19at 17:24; Start 02/20/19 at 16:00 Folic Acid (Folic Acid) 1 mg DAILY PO ; Start 02/25/19 at 09:00 Ibuprofen (Motrin) 600 mg PRN Q6HRS PRN PO INFLAMMATION Last administered on 02/21/19at 14:30; Start 02/21/19 at 14:00 Lactobacillus Rhamnosus (Culturelle) 1 cap BID PO Last administered on 02/21/19at 10:47; Start 02/20/19 at 21:00 Lidocaine HCl (Xylocaine 1% Pf 30ml Vial) 30 ml 1X ONCE INJ Last administered on 02/20/19at 17:15; Start 02/20/19 at 17:15; Stop 02/20/19 at 17:16; Status DC Metformin HCl (Glucophage) 1,000 mg DAILY08 PO Last administered on 02/21/19at 07:57; Start 02/21/19 at 08:00 Metronidazole (Flagyl) 500 mg Q12HR PO Last administered on 02/21/19at 07:57; Start 02/20/19 at 18:00 Multivitamins (Thera M Plus) 1 tab DAILY PO ; Start 02/25/19 at 09:00 Neomycin/ Polymyxin/ Bacitracin (Triple Antibiotic Ointment) 1 pkt 1X ONCE TP Last administered on 02/20/19at 17:15; Start 02/20/19 at 17:15; Stop 02/20/19 at 17:16; Status DC Potassium Chloride (Klor-Con) 20 meq DAILYWBKFT PO ; Start 02/22/19 at 08:00 Potassium Chloride (Klor-Con) 40 meq 1X ONCE PO Last administered on 02/21/19at 07:58; Start 02/21/19 at 07:30; Stop 02/21/19 at 07:31; Status DC Potassium Chloride (Klor-Con) 40 meq 1X ONCE PO Last administered on 02/21/19at 10:47; Start 02/21/19 at 09:30; Stop 02/21/19 at 09:31; Status DC Potassium Chloride (Klor-Con) 40 meq 1X ONCE PO ; Start 02/21/19 at 13:45; Stop 02/21/19 at 13:47; Status DC Thiamine Mononitrate (Vitamin B-1) 100 mg DAILY PO ; Start 02/25/19 at 09:00 Thiamine HCl 100 mg/Dextrose 51 ml @ 100 mls/hr DAILY IV ; Start 02/21/19 at 09:00; Stop 02/25/19 at 09:31; Status UNV Vancomycin HCl (Vancomycin Trough Level) 1 each 1X ONCE MC ; Start 02/22/19 at 01:30; Stop 02/22/19 at 01:31 Vancomycin HCl 1 gm/Sodium Chloride 250 ml @ 250 mls/hr Q12H IV Last administered on 02/21/19at 14:13; Start 02/21/19 at 02:00 Comment Review of Relevant I have reviewed the following items paresh (where applicable) has been applied. JAGDISH COOPER MD February 21, 2019 14:56
[2019-02-21 15:10] VITALS: BP 136/76
--- NOTE | 2019-02-21 16:15 | PDOC ---
Infectious Disease Note Vital Sign Vital Signs Vital Signs Date Time Temp Pulse Resp B/P (MAP) Pulse Ox O2 Delivery O2 Flow Rate FiO2 02/21/19 15:10 98.5 84 20 136/76 (96) 98 Room Air 98.5 Labs Lab Laboratory Tests Test 02/20/19 17:01 02/20/19 20:53 02/21/19 03:30 02/21/19 07:14 Glucose (Fingerstick) 132 mg/dL (70-99) 126 mg/dL (70-99) 100 mg/dL (70-99) White Blood Count 5.4 x10^3/uL (4.0-11.0) Red Blood Count 4.36 x10^6/uL (3.50-5.40) Hemoglobin 12.9 g/dL (12.0-15.5) Hematocrit 38.6 % (36.0-47.0) Mean Corpuscular Volume 88 fL (79-100) Mean Corpuscular Hemoglobin 30 pg (25-35) Mean Corpuscular Hemoglobin Concent 34 g/dL (31-37) Red Cell Distribution Width 14.2 % (11.5-14.5) Platelet Count 220 x10^3/uL (140-400) Neutrophils (%) (Auto) 58 % (31-73) Lymphocytes (%) (Auto) 29 % (24-48) Monocytes (%) (Auto) 8 % (0-9) Eosinophils (%) (Auto) 4 % (0-3) Basophils (%) (Auto) 1 % (0-3) Neutrophils # (Auto) 3.1 x10^3uL (1.8-7.7) Lymphocytes # (Auto) 1.6 x10^3/uL (1.0-4.8) Monocytes # (Auto) 0.4 x10^3/uL (0.0-1.1) Eosinophils # (Auto) 0.2 x10^3/uL (0.0-0.7) Basophils # (Auto) 0.0 x10^3/uL (0.0-0.2) Sodium Level 145 mmol/L (136-145) Potassium Level 3.3 mmol/L (3.5-5.1) Chloride Level 109 mmol/L (98-107) Carbon Dioxide Level 25 mmol/L (21-32) Anion Gap 11 (6-14) Blood Urea Nitrogen 11 mg/dL (7-20) Creatinine 0.7 mg/dL (0.6-1.0) Estimated GFR (Cockcroft-Gault) 104.7 BUN/Creatinine Ratio 16 (6-20) Glucose Level 151 mg/dL (70-99) Calcium Level 9.0 mg/dL (8.5-10.1) Total Bilirubin 0.4 mg/dL (0.2-1.0) Aspartate Amino Transf (AST/SGOT) 12 U/L (15-37) Alanine Aminotransferase (ALT/SGPT) 18 U/L (14-59) Alkaline Phosphatase 82 U/L (46-116) Total Protein 5.9 g/dL (6.4-8.2) Albumin 2.9 g/dL (3.4-5.0) Albumin/Globulin Ratio 1.0 (1.0-1.7) Test 02/21/19 12:12 Glucose (Fingerstick) 97 mg/dL (70-99) Objective Assessment Paronychia right great toe s/p I and D with total nail avulsion, 02/20. ? cultures. ESR 15 Onychomycosis Allergy to sulfa and PCN w/ bumps Cocaine abuse Syncopal episode Diabetes II Hypothyroidism h/o seizure Plan Plan of Care vanc and Flagyl Restart Rocephin f/u cultures, if any f/u am labs/temp Local wound care Pain management per primary D/w nursing Thank you [phone] Pt seen and examined on 02/22/2019 coformulated above A/P with FRANCESCA CORTEZ [employer]ER February 21, 2019 16:15 TISHA MAURICE MD February 24, 2019 13:30
[2019-02-21] MEDS: cefTRIAXone IV Push 1 GM VIAL. IVP SCH (17:46)
[2019-02-21] MEDS: ENOXAPARIN 40 MG/0.4 ML SYRINGE. SQ SCH (17:51)
[2019-02-21 19:57] VITALS: BP 132/70
[2019-02-21 23:54] VITALS: BP 145/77
[2019-02-22] VITALS (7 sets, daily range): BP systolic 115–170; BP diastolic 70–102
[2019-02-22] MEDS: VANCOMYCIN 1 GM in IV NORMAL SALINE 250ML 250 ML IV SCH ×3 (02:00→16:54)
[2019-02-22] MEDS: VANCOMYCIN PER PHARMACY MC PRN ×2 (02:18→13:36)
--- NOTE | 2019-02-22 02:19 | NUR ---
Pharmacy Vancomycin Dosing Note S: Consulted to monitor and dose vancomycin started 02/20/19. O: JONA CELIS is a 58 year old F with Cellulitis, . Other Antibiotics: CEFTRIAXONE 1GM IV Q24H (02/21) LABS: Last BUN: 11 Last Creatinine: 0.7 Creatinine Clearance: 83 mL/min Last WBC: 5.4 Last Procalcitonin: - Tmax (past 24 hours): 98.2 Microbiology: N/A I/O: 950/2300 Drug Levels: Last Trough level: 8.0 on 02/22/19 at 0130 Last dose given 02/21/19 at 1413 Vancomycin Dosing: Dosing Weight: Actual Target Trough: 10-20 A: Based on: Trough(L), Updated Actual Wt and CrCl P: 1. 02/22/19 0200 Increase Vancomycin 1000 mg IV q8h 2. Follow up Trough level on 02/23/19 at 0130 3. Pharmacy will continue to monitor, follow and adjust therapy as needed. IMMANUEL WARREN RPH, 02/22/19 0219 Signed: 02/22/19 at 0221 by IMMANUEL WARREN RPH PHA
[2019-02-22] MEDS: IBUPROFEN 200 MG TABLET. PO PRN (03:59)
[2019-02-22 04:23] LABS: BASO % 1 % (0-3); EOS # 0.3 x10^3/uL (0.0-0.7); EOS % 7 % (0-3); HEMATOCRIT 40.6 % (36.0-47.0); HEMOGLOBIN 13.5 g/dL (12.0-15.5); LYMPH % 24 % (24-48); MEAN CORPUSCULAR HEMOGLOBIN 30 pg (25-35); MEAN CORPUSCULAR HGB CONC 33 g/dL (31-37); MEAN CORPUSCULAR VOLUME 90 fL (79-100); MONO # 0.2 x10^3/uL (0.0-1.1); MONO % 6 % (0-9); NEUT # 2.6 x10^3uL (1.8-7.7); NEUT % 63 % (31-73); PLATELET COUNT 243 x10^3/uL (140-400); RED BLOOD COUNT 4.52 x10^6/uL (3.50-5.40); RED CELL DISTRIBUTION WIDTH 14.6 % (11.5-14.5); WHITE BLOOD COUNT 4.1 x10^3/uL (4.0-11.0)
[2019-02-22 04:51] LABS: ALBUMIN/GLOBULIN RATIO 0.9 (1.0-1.7); CALCIUM 9.4 mg/dL (8.5-10.1); CREATININE 0.9 mg/dL (0.6-1.0); GFR 78.4; POTASSIUM 3.9 mmol/L (3.5-5.1); TOTAL BILIRUBIN 0.3 mg/dL (0.2-1.0); TOTAL PROTEIN 6.2 g/dL (6.4-8.2)
[2019-02-22] MEDS: PANTOPRAZOLE 40 MG TABLET.DR. PO SCH (06:18)
[2019-02-22] MEDS: LEVOTHYROXINE 25 MCG TABLET. PO SCH (06:18)
--- NOTE | 2019-02-22 06:18 | CONS ---
DATE OF CONSULTATION: 02/21/2019 REFERRING PHYSICIAN: Dr. Bernal. REASON FOR CONSULTATION: Right great toe cellulitis. HISTORY OF PRESENT ILLNESS: The patient is a 58-year-old female, with diabetes, who about 2 days ago, says she woke up with pain and swelling of her right great toe. She went to work thinking that it would get better; however, the following morning, she woke up dizzy, room spinning. She got out of bed to go to the bathroom and fell. On arrival to the ER, her right great toe was red, swollen and painful. Sed rate was 15. An x-ray showed no acute fracture, dislocation or bone destruction. She was given a one-time dose of ceftriaxone. She was evaluated by Podiatry, Dr. Chu. The patient underwent an incision and drainage with total nail avulsion, right hallux on 02/20/2019 expressing pustular drainage. It is not clear whether or not cultures were obtained. She was noted to have clinical onychomycosis. I recommended prescription for terbinafine daily for 3 months; however, she has not started on the antifungal medication yet. She is now on vancomycin and metronidazole. The patient's dressing was recently changed. There are no pictures taken. The patient complains of pain and is wanting something more than just Tylenol. She complains of a pounding headache as well. A head CT showed no convincing acute intracranial abnormality; prominence of bifrontal subarachnoid spaces, which may be due to involutional change. She was evaluated by Neurology, Dr. Fong who recommended a brain MRI without contrast. The patient also is complaining of frequent urination and dysuria. A urinalysis on admission showed occasional wbc's, a few bacteria with moderate squamous epithelial cells. She denies fevers, chills, sweats or body aches. Denies nausea, vomiting or diarrhea. She is not very hungry and she does not find the food appealing. Denies cough, shortness of air or chest discomfort. Denies sinus/nasal congestion or sore throat. PAST MEDICAL HISTORY: Diabetes type 2, hypertension, hypothyroidism, hyperlipidemia, history of seizure and osteoarthritis. PAST SURGICAL HISTORY: Bladder surgery, ventral hernia repair, hysterectomy, cholecystectomy. FAMILY HISTORY: Hypertension. SOCIAL HISTORY: She is a smoker. She drinks alcohol. Cocaine use. ALLERGIES: PENICILLIN CAUSING "BUMPS." She believes she has taken amoxicillin without problem. ALSO LISTED SULFA. MEDICATIONS: Vancomycin, metronidazole, one-time dose of ceftriaxone on 02/20/2019, multivitamin/thiamine/folic acid, aspirin, ibuprofen, probiotics, bacitracin. Other medications are available and have been reviewed on the DEC. REVIEW OF SYSTEMS: Per HPI, otherwise all other review of systems are negative. PHYSICAL EXAMINATION: VITAL SIGNS: Temperature is 98.5, blood pressure 136/76, heart rate 84, respiratory rate 20, pulse oximetry 98% on room air. BMI 28. GENERAL: The patient is sleeping, arouses easily to name. HEENT: Pupils equally round. Normal conjunctivae. Oral cavity: Pharynx pink and moist. Negative sinus tenderness. NECK: Supple. LUNGS: Clear to auscultation. HEART: S1, S2. ABDOMEN: Nondistended, soft and nontender with bowel sounds present. EXTREMITIES: No gross edema or cyanosis. Right foot dressing dry and intact. SKIN: Warm without generalized rash. NEUROLOGIC: Arouses easily to name and responds appropriately. LABORATORY DATA: WBC 5.4, hemoglobin 12.9, platelets 220,000. Sed rate 15. Sodium 145, potassium 3.3, creatinine 0.7, BUN 11, glucose 151. Lactic acid 1.0, uric acid 5.3. Troponin less than 0.017, total bilirubin 0.7, AST 21, ALT 25, albumin 4.0. Urinalysis per HPI. Urine toxicology positive for cocaine. X-ray, right toe and head CT per HPI. Chest x-ray showed no infiltrate, pneumothorax or effusion. IMPRESSION: 1. Paronychia, right great toe, status post incision and drainage with total nail avulsion on 02/20/2019 by Podiatry, Dr. Chu. 2. Onychomycosis. 3. ALLERGY TO SULFA AND PENICILLIN, as mentioned above. 4. Cocaine abuse. 5. Syncopal episode. 6. Diabetes, type 2. 7. Hypothyroidism. 8. History of seizures. PLAN: 1. Continue the vancomycin and metronidazole and restart ceftriaxone. We will follow up on cultures, if any, as well as morning laboratory values. 2. We will assess wound. 3. Drain. 4. Dressing change tomorrow. 5. Pain management per primary. Discussed with nursing staff. Thank you, Dr. Bernal, for asking us to participate in this patient's care. Should you have further questions or concerns, please call. TISHA MAURICE MD DR: JESSICA/deepti JOB#: [id number] / [id number]
[2019-02-22] MEDS: MULTIVIT INFUSN,ADULT 4,VIT K 10 ML, THIAMINE INJ 100 MG, FOLIC ACID INJ 1 MG in IV NOR... IV SCH (08:52)
[2019-02-22] MEDS: metFORMIN 500 MG TABLET PO SCH (08:54)
[2019-02-22] MEDS: ASPIRIN CHEWABLE 81 MG TABLET. PO SCH (08:54)
[2019-02-22] MEDS: amLODIPine BESYLATE 5 MG TABLET PO SCH (08:54)
[2019-02-22] MEDS: LACTOBACILLUS RHAMNOSUS GG 1 CAPSULE. PO SCH ×2 (08:54→21:12)
[2019-02-22] MEDS: hydroCHLOROthiazide 25 MG TABLET PO SCH (08:54)
[2019-02-22] MEDS: ATORVASTATIN CALCIUM 20 MG TABLET PO SCH (08:54)
[2019-02-22] MEDS: metroNIDAZOLE 500 MG TABLET PO SCH ×2 (08:54→21:12)
[2019-02-22] MEDS: POTASSIUM CHLORIDE 20 MEQ TABLET.ER. PO SCH (08:55)
--- NOTE | 2019-02-22 08:59 | PDOC ---
PROGRESS NOTES History of Present Illness History of Present Illness Assessment/Plan Assessment/Plan Impression: 1. No acute intracranial abnormality is identified by CT. 2. prominence of bifrontal subarachnoid spaces which may be due to involutional change. 3. reported syncopal episode 4. alcohol abuse 5. cocaine abuse 6. elevated troponin i, high risk admit for CAD 7. DM2 8. Hypothyroidism 9.. Tobacco abuse disorder plan 1. admit cvc 2. neurology consult 3. neurochecks q 4 hrs 4. counseled on need to seek drug treatment program provided 5. cardiology consult 6. dvt prophylaxis 7. gi prophylaxis 8. echo 9. trend troponin i 10. dvt prophylaxis 11. gi prophylaxis 12, alcohol withdrawal precautions 13. outpt stress test pending test and complaince with cessation of substance abuse. PROCEDURE Procedure Pre op Diagnosis: Paronychia right hallux Post op DX: Same Procedure: Incision and drainage with total nail avulsion right hallux Anesthesia: hallux block 6mL of 1% lidocaine plain Surgeon: Dr. Chu 45 min pt exam,chart review, > 50% of time spent with exam, chart review, pt care coordination Dedra charles mri head today personally reviewed refusing to follow ADA DIET AMA Vitals Vitals Vital Signs Date Time Temp Pulse Resp B/P (MAP) Pulse Ox O2 Delivery O2 Flow Rate FiO2 02/22/19 08:54 72 148/87 02/22/19 07:00 97.9 12 98 Room Air 97.9 Physical Exam General: Alert, Oriented X3, Cooperative, No acute distress Heart: Regular rate (SR), Normal S1, Normal S2, No murmurs Lungs: Clear Abdomen: Normal bowel sounds, Soft, No tenderness Extremities: No clubbing, No cyanosis (edal pulses), No edema Skin: No breakdown, No significant lesion Labs LABS Laboratory Tests Test 02/21/19 12:12 02/21/19 17:10 02/21/19 20:11 02/22/19 01:25 Glucose (Fingerstick) 97 mg/dL (70-99) 124 mg/dL (70-99) 234 mg/dL (70-99) Vancomycin Level Trough 8.0 mcg/mL (10.0-20.0) Vancomycin Last Dose Date [id number] Vancomycin Last Dose Time 1400 Test 02/22/19 03:30 02/22/19 08:11 White Blood Count 4.1 x10^3/uL (4.0-11.0) Red Blood Count 4.52 x10^6/uL (3.50-5.40) Hemoglobin 13.5 g/dL (12.0-15.5) Hematocrit 40.6 % (36.0-47.0) Mean Corpuscular Volume 90 fL (79-100) Mean Corpuscular Hemoglobin 30 pg (25-35) Mean Corpuscular Hemoglobin Concent 33 g/dL (31-37) Red Cell Distribution Width 14.6 % (11.5-14.5) Platelet Count 243 x10^3/uL (140-400) Neutrophils (%) (Auto) 63 % (31-73) Lymphocytes (%) (Auto) 24 % (24-48) Monocytes (%) (Auto) 6 % (0-9) Eosinophils (%) (Auto) 7 % (0-3) Basophils (%) (Auto) 1 % (0-3) Neutrophils # (Auto) 2.6 x10^3uL (1.8-7.7) Lymphocytes # (Auto) 1.0 x10^3/uL (1.0-4.8) Monocytes # (Auto) 0.2 x10^3/uL (0.0-1.1) Eosinophils # (Auto) 0.3 x10^3/uL (0.0-0.7) Basophils # (Auto) 0.0 x10^3/uL (0.0-0.2) Sodium Level 144 mmol/L (136-145) Potassium Level 3.9 mmol/L (3.5-5.1) Chloride Level 109 mmol/L (98-107) Carbon Dioxide Level 26 mmol/L (21-32) Anion Gap 9 (6-14) Blood Urea Nitrogen 10 mg/dL (7-20) Creatinine 0.9 mg/dL (0.6-1.0) Estimated GFR (Cockcroft-Gault) 78.4 BUN/Creatinine Ratio 11 (6-20) Glucose Level 122 mg/dL (70-99) Calcium Level 9.4 mg/dL (8.5-10.1) Total Bilirubin 0.3 mg/dL (0.2-1.0) Aspartate Amino Transf (AST/SGOT) 15 U/L (15-37) Alanine Aminotransferase (ALT/SGPT) 21 U/L (14-59) Alkaline Phosphatase 81 U/L (46-116) Total Protein 6.2 g/dL (6.4-8.2) Albumin 3.0 g/dL (3.4-5.0) Albumin/Globulin Ratio 0.9 (1.0-1.7) Glucose (Fingerstick) 135 mg/dL (70-99) Assessment and Plan Assessmemt and Plan Problems Medical Problems: (1) Cocaine abuse Status: Acute (2) Diabetic infection of right foot Status: Acute (3) Elevated troponin I level Status: Acute (4) Headache Status: Acute (5) Syncope Status: Acute (6) Tobacco abuse Status: Acute (7) Tobacco abuse counseling Status: Acute Comment Review of Relevant I have reviewed the following items paresh (where applicable) has been applied. Labs Laboratory Tests Test 02/20/19 11:45 02/20/19 12:13 02/20/19 15:15 02/20/19 17:01 Troponin I Quantitative < 0.017 ng/mL (0.000-0.055) < 0.017 ng/mL (0.000-0.055) Glucose (Fingerstick) 85 mg/dL (70-99) 132 mg/dL (70-99) Test 02/20/19 20:53 02/21/19 03:30 02/21/19 07:14 02/21/19 12:12 Glucose (Fingerstick) 126 mg/dL (70-99) 100 mg/dL (70-99) 97 mg/dL (70-99) White Blood Count 5.4 x10^3/uL (4.0-11.0) Red Blood Count 4.36 x10^6/uL (3.50-5.40) Hemoglobin 12.9 g/dL (12.0-15.5) Hematocrit 38.6 % (36.0-47.0) Mean Corpuscular Volume 88 fL (79-100) Mean Corpuscular Hemoglobin 30 pg (25-35) Mean Corpuscular Hemoglobin Concent 34 g/dL (31-37) Red Cell Distribution Width 14.2 % (11.5-14.5) Platelet Count 220 x10^3/uL (140-400) Neutrophils (%) (Auto) 58 % (31-73) Lymphocytes (%) (Auto) 29 % (24-48) Monocytes (%) (Auto) 8 % (0-9) Eosinophils (%) (Auto) 4 % (0-3) Basophils (%) (Auto) 1 % (0-3) Neutrophils # (Auto) 3.1 x10^3uL (1.8-7.7) Lymphocytes # (Auto) 1.6 x10^3/uL (1.0-4.8) Monocytes # (Auto) 0.4 x10^3/uL (0.0-1.1) Eosinophils # (Auto) 0.2 x10^3/uL (0.0-0.7) Basophils # (Auto) 0.0 x10^3/uL (0.0-0.2) Sodium Level 145 mmol/L (136-145) Potassium Level 3.3 mmol/L (3.5-5.1) Chloride Level 109 mmol/L (98-107) Carbon Dioxide Level 25 mmol/L (21-32) Anion Gap 11 (6-14) Blood Urea Nitrogen 11 mg/dL (7-20) Creatinine 0.7 mg/dL (0.6-1.0) Estimated GFR (Cockcroft-Gault) 104.7 BUN/Creatinine Ratio 16 (6-20) Glucose Level 151 mg/dL (70-99) Calcium Level 9.0 mg/dL (8.5-10.1) Total Bilirubin 0.4 mg/dL (0.2-1.0) Aspartate Amino Transf (AST/SGOT) 12 U/L (15-37) Alanine Aminotransferase (ALT/SGPT) 18 U/L (14-59) Alkaline Phosphatase 82 U/L (46-116) Total Protein 5.9 g/dL (6.4-8.2) Albumin 2.9 g/dL (3.4-5.0) Albumin/Globulin Ratio 1.0 (1.0-1.7) Test 02/21/19 17:10 02/21/19 20:11 02/22/19 01:25 02/22/19 03:30 Glucose (Fingerstick) 124 mg/dL (70-99) 234 mg/dL (70-99) Vancomycin Level Trough 8.0 mcg/mL (10.0-20.0) Vancomycin Last Dose Date [id number] Vancomycin Last Dose Time 1400 White Blood Count 4.1 x10^3/uL (4.0-11.0) Red Blood Count 4.52 x10^6/uL (3.50-5.40) Hemoglobin 13.5 g/dL (12.0-15.5) Hematocrit 40.6 % (36.0-47.0) Mean Corpuscular Volume 90 fL (79-100) Mean Corpuscular Hemoglobin 30 pg (25-35) Mean Corpuscular Hemoglobin Concent 33 g/dL (31-37) Red Cell Distribution Width 14.6 % (11.5-14.5) Platelet Count 243 x10^3/uL (140-400) Neutrophils (%) (Auto) 63 % (31-73) Lymphocytes (%) (Auto) 24 % (24-48) Monocytes (%) (Auto) 6 % (0-9) Eosinophils (%) (Auto) 7 % (0-3) Basophils (%) (Auto) 1 % (0-3) Neutrophils # (Auto) 2.6 x10^3uL (1.8-7.7) Lymphocytes # (Auto) 1.0 x10^3/uL (1.0-4.8) Monocytes # (Auto) 0.2 x10^3/uL (0.0-1.1) Eosinophils # (Auto) 0.3 x10^3/uL (0.0-0.7) Basophils # (Auto) 0.0 x10^3/uL (0.0-0.2) Sodium Level 144 mmol/L (136-145) Potassium Level 3.9 mmol/L (3.5-5.1) Chloride Level 109 mmol/L (98-107) Carbon Dioxide Level 26 mmol/L (21-32) Anion Gap 9 (6-14) Blood Urea Nitrogen 10 mg/dL (7-20) Creatinine 0.9 mg/dL (0.6-1.0) Estimated GFR (Cockcroft-Gault) 78.4 BUN/Creatinine Ratio 11 (6-20) Glucose Level 122 mg/dL (70-99) Calcium Level 9.4 mg/dL (8.5-10.1) Total Bilirubin 0.3 mg/dL (0.2-1.0) Aspartate Amino Transf (AST/SGOT) 15 U/L (15-37) Alanine Aminotransferase (ALT/SGPT) 21 U/L (14-59) Alkaline Phosphatase 81 U/L (46-116) Total Protein 6.2 g/dL (6.4-8.2) Albumin 3.0 g/dL (3.4-5.0) Albumin/Globulin Ratio 0.9 (1.0-1.7) Test 02/22/19 08:11 Glucose (Fingerstick) 135 mg/dL (70-99) Laboratory Tests Test 02/21/19 12:12 02/21/19 17:10 02/21/19 20:11 02/22/19 01:25 Glucose (Fingerstick) 97 mg/dL (70-99) 124 mg/dL (70-99) 234 mg/dL (70-99) Vancomycin Level Trough 8.0 mcg/mL (10.0-20.0) Vancomycin Last Dose Date [id number] Vancomycin Last Dose Time 1400 Test 02/22/19 03:30 02/22/19 08:11 White Blood Count 4.1 x10^3/uL (4.0-11.0) Red Blood Count 4.52 x10^6/uL (3.50-5.40) Hemoglobin 13.5 g/dL (12.0-15.5) Hematocrit 40.6 % (36.0-47.0) Mean Corpuscular Volume 90 fL (79-100) Mean Corpuscular Hemoglobin 30 pg (25-35) Mean Corpuscular Hemoglobin Concent 33 g/dL (31-37) Red Cell Distribution Width 14.6 % (11.5-14.5) Platelet Count 243 x10^3/uL (140-400) Neutrophils (%) (Auto) 63 % (31-73) Lymphocytes (%) (Auto) 24 % (24-48) Monocytes (%) (Auto) 6 % (0-9) Eosinophils (%) (Auto) 7 % (0-3) Basophils (%) (Auto) 1 % (0-3) Neutrophils # (Auto) 2.6 x10^3uL (1.8-7.7) Lymphocytes # (Auto) 1.0 x10^3/uL (1.0-4.8) Monocytes # (Auto) 0.2 x10^3/uL (0.0-1.1) Eosinophils # (Auto) 0.3 x10^3/uL (0.0-0.7) Basophils # (Auto) 0.0 x10^3/uL (0.0-0.2) Sodium Level 144 mmol/L (136-145) Potassium Level 3.9 mmol/L (3.5-5.1) Chloride Level 109 mmol/L (98-107) Carbon Dioxide Level 26 mmol/L (21-32) Anion Gap 9 (6-14) Blood Urea Nitrogen 10 mg/dL (7-20) Creatinine 0.9 mg/dL (0.6-1.0) Estimated GFR (Cockcroft-Gault) 78.4 BUN/Creatinine Ratio 11 (6-20) Glucose Level 122 mg/dL (70-99) Calcium Level 9.4 mg/dL (8.5-10.1) Total Bilirubin 0.3 mg/dL (0.2-1.0) Aspartate Amino Transf (AST/SGOT) 15 U/L (15-37) Alanine Aminotransferase (ALT/SGPT) 21 U/L (14-59) Alkaline Phosphatase 81 U/L (46-116) Total Protein 6.2 g/dL (6.4-8.2) Albumin 3.0 g/dL (3.4-5.0) Albumin/Globulin Ratio 0.9 (1.0-1.7) Glucose (Fingerstick) 135 mg/dL (70-99) Medications Current Medications Sodium Chloride 1,000 ml @ 1,000 mls/hr 1X ONCE IV Last administered on 02/20/19at 08:24; Start 02/20/19 at 07:30; Stop 02/20/19 at 08:29; Status DC Meclizine HCl (Antivert) 25 mg 1X ONCE PO Last administered on 02/20/19at 09:28; Start 02/20/19 at 09:30; Stop 02/20/19 at 09:31; Status DC Ceftriaxone Sodium (Rocephin) 1 gm 1X ONCE IVP Last administered on 02/20/19 09:28; Start 02/20/19 at 09:30; Stop 02/20/19 at 09:31; Status DC Aspirin (Children'S Aspirin) 324 mg 1X ONCE PO Last administered on 02/20/19at 09:28; Start 02/20/19 at 09:30; Stop 02/20/19 at 09:31; Status DC Fentanyl Citrate (Fentanyl 2ml Vial) 50 mcg 1X ONCE IV ; Start 02/20/19 at 09:45; Stop 02/20/19 at 09:46; Status DC Multivitamins 10 ml/Thiamine HCl 100 mg/Folic Acid 1 mg/Sodium Chloride 1,011.2 ml @ 100 mls/ hr DAILY IV Last administered on 02/22/19at 08:52; Start 02/20/19 at 11:00; Stop 02/24/19 at 19:07 Multivitamins (Thera M Plus) 1 tab DAILY PO Last administered on 02/20/19at 12:30; Start 02/20/19 at 11:00; Stop 02/20/19 at 15:13; Status DC Folic Acid (Folic Acid) 1 mg DAILY PO Last administered on 02/20/19at 12:30; Start 02/20/19 at 11:00; Stop 02/20/19 at 15:13; Status DC Thiamine HCl 100 mg/Dextrose 51 ml @ 100 mls/hr DAILY IV ; Start 02/21/19 at 09:00; Stop 02/25/19 at 09:31; Status UNV Lorazepam (Ativan) 4 mg PRN Q1HR PRN PO For CIWA 8-14; Start 02/20/19 at 10:15 Lorazepam (Ativan) 8 mg PRN Q1HR PRN PO For CIWA 15 or greater; Start 02/20/19 at 10:15 Lorazepam (Ativan Inj) 2 mg PRN Q1HR PRN IV For CIWA 8-14 Last administered on 02/20/19at 19:59; Start 02/20/19 at 10:15 Lorazepam (Ativan Inj) 4 mg PRN Q1HR PRN IV For CIWA 15 or greater; Start 02/20/19 at 10:15 Haloperidol Lactate (Haldol Inj) 5 mg PRN Q4HRS PRN IVP Hallucinatns,Confusn,Delirium; Start 02/20/19 at 10:15 Diphenhydramine HCl (Benadryl) 25 mg PRN Q15MIN PRN IVP EPS symptoms 2'Haldol admin; Start 02/20/19 at 10:15 Clonidine HCl (Catapres) 0.1 mg PRN Q1HR PRN PO SBP > 180 or DBP > 100, MRX3; Start 02/20/19 at 10:15; Stop 02/20/19 at 15:12; Status DC Lorazepam (Ativan Inj) 2 mg PRN Q15MIN PRN IV SEE COMMENTS; Start 02/20/19 at 10:15; Status UNV Lorazepam (Ativan Inj) 4 mg PRN Q15MIN PRN IV SEE COMMENTS; Start 02/20/19 at 10:15; Status UNV Amlodipine Besylate (Norvasc) 5 mg DAILY PO Last administered on 02/22/19at 08:54; Start 02/20/19 at 11:00 Aspirin (Children'S Aspirin) 81 mg DAILY PO Last administered on 02/22/19at 08:54; Start 02/20/19 at 11:00 Atorvastatin Calcium (Lipitor) 20 mg DAILY PO Last administered on 02/22/19at 08:54; Start 02/20/19 at 11:00 Hydrochlorothiazide (Hydrodiuril) 25 mg DAILY PO Last administered on 02/22/19at 08:54; Start 02/20/19 at 11:00 Levothyroxine Sodium (Synthroid) 25 mcg DAILY06 PO Last administered on 02/22/19at 06:18; Start 02/20/19 at 11:00 Metformin HCl (Glucophage) 1,000 mg BIDWMEALS PO Last administered on 02/20/19at 17:00; Start 02/20/19 at 12:00; Stop 02/20/19 at 17:00; Status DC Thiamine Mononitrate (Vitamin B-1) 100 mg DAILY PO Last administered on 02/20/19at 12:30; Start 02/20/19 at 11:00; Stop 02/20/19 at 15:12; Status DC Pantoprazole Sodium (Protonix) 40 mg DAILYAC PO Last administered on 02/22/19at 06:18; Start 02/20/19 at 12:30 Enoxaparin Sodium (Lovenox 40mg Syringe) 40 mg Q24H SQ Last administered on 02/21/19at 17:51; Start 02/20/19 at 16:00 Sodium Chloride (Normal Saline Flush) 3 ml QSHIFT PRN IV AFTER MEDS AND BLOOD DRAWS; Start 02/20/19 at 12:15 Multivitamins 10 ml/Thiamine HCl 100 mg/Folic Acid 1 mg/Sodium Chloride 1,011.2 ml @ 125 mls/ hr Q8H IV ; Start 02/20/19 at 12:15; Status UNV Ondansetron HCl (Zofran) 4 mg PRN Q4HRS PRN IV NAUSEA/VOMITING; Start 02/20/19 at 12:15 Zolpidem Tartrate (Ambien) 5 mg PRN QHS PRN PO INSOMNIA; Start 02/20/19 at 12:15 Acetaminophen (Tylenol) 650 mg PRN Q4HRS PRN PO TEMP OVER 100.4F OR MILD PAIN Last administered on 02/21/19at 07:55; Start 02/20/19 at 12:15; Stop 02/21/19 at 10:22; Status DC Al Hydroxide/Mg Hydroxide (Mylanta Plus Xs) 30 ml PRN DAILY PRN PO HEARTBURN / GAS; Start 02/20/19 at 12:15 Clonidine HCl (Catapres) 0.1 mg PRN Q6HRS PRN PO SBP>160 OR DBP>90; Start at 12:15 Docusate Sodium (Colace) 100 mg PRN BID PRN PO CONSTIPATION; Start 02/20/19 at 12:15 Albuterol/ Ipratropium (Duoneb) 3 ml Q4H NEB Last administered on 02/20/19at 16:00; Start 02/20/19 at 12:00; Stop 02/20/19 at 18:44; Status DC Guaifenesin (Robitussin) 200 mg PRN Q4HRS PRN PO COUGH; Start 02/20/19 at 12:15 Lorazepam (Ativan) 0.5 mg PRN Q4HRS PRN PO ANXIETY / AGITATION Last administered on 02/21/19at 21:32; Start 02/20/19 at 12:15 Lorazepam (Ativan Inj) 2 mg PRN Q4HRS PRN IV ANXIETY / AGITATION; Start 02/20/19 at 12:15 Vancomycin HCl 1 gm/Dextrose 250 ml @ 250 mls/hr 1X ONCE IV ; Start 02/20/19 at 12:15; Stop 02/20/19 at 13:14; Status UNV Vancomycin HCl (Vanco Per Pharmacy) 1 each PRN DAILY PRN MC SEE COMMENTS Last administered on 02/22/19at 02:18; Start 02/20/19 at 12:45 Vancomycin HCl 1.5 gm/Sodium Chloride 500 ml @ 250 mls/hr 1X ONCE IV Last administered on 02/20/19at 14:10; Start 02/20/19 at 13:00; Stop 02/20/19 at 14:59; Status DC Vancomycin HCl 1 gm/Sodium Chloride 250 ml @ 250 mls/hr Q12H IV Last administered on 02/21/19at 14:13; Start 02/21/19 at 02:00; Stop 02/22/19 at 02:08; Status DC Vancomycin HCl (Vancomycin Trough Level) 1 each 1X ONCE MC ; Start 02/22/19 at 01:30; Stop 02/22/19 at 01:31; Status DC Thiamine Mononitrate (Vitamin B-1) 100 mg DAILY PO ; Start 02/25/19 at 09:00 Folic Acid (Folic Acid) 1 mg DAILY PO ; Start 02/25/19 at 09:00 Multivitamins (Thera M Plus) 1 tab DAILY PO ; Start 02/25/19 at 09:00 Lactobacillus Rhamnosus (Culturelle) 1 cap BID PO Last administered on 02/22/19at 08:54; Start 02/20/19 at 21:00 Metformin HCl (Glucophage) 1,000 mg DAILY08 PO Last administered on 02/22/19at 08:54; Start 02/21/19 at 08:00 Lidocaine HCl (Xylocaine 1% Pf 30ml Vial) 30 ml 1X ONCE INJ Last administered on 02/20/19at 17:15; Start 02/20/19 at 17:15; Stop 02/20/19 at 17:16; Status DC Neomycin/ Polymyxin/ Bacitracin (Triple Antibiotic Ointment) 1 pkt 1X ONCE TP Last administered on 02/20/19at 17:15; Start 02/20/19 at 17:15; Stop 02/20/19 at 17:16; Status DC Metronidazole (Flagyl) 500 mg Q12HR PO Last administered on 02/22/19at 08:54; Start 02/20/19 at 18:00 Acetaminophen (Tylenol) 650 mg PRN Q6HRS PRN PO FOOT PAIN, FEVER Last administered on 02/21/19at 17:45; Start 02/20/19 at 18:15 Bacitracin 1 quentin BID TP Last administered on 02/21/19at 21:33; Start 02/20/19 at 21:00 Acetaminophen (Tylenol) 500 mg PRN Q6HRS PRN PO MILD PAIN / TEMP; Start 02/20/19 at 18:15; Status UNV Albuterol Sulfate (Ventolin Neb Soln) 2.5 mg PRN Q4HRS PRN NEB SHORTNESS OF BREATH; Start 02/20/19 at 19:00 Potassium Chloride (Klor-Con) 40 meq 1X ONCE PO Last administered on 02/21/19at 07:58; Start 02/21/19 at 07:30; Stop 02/21/19 at 07:31; Status DC Potassium Chloride (Klor-Con) 40 meq 1X ONCE PO Last administered on 02/21/19at 10:47; Start 02/21/19 at 09:30; Stop 02/21/19 at 09:31; Status DC Potassium Chloride (Klor-Con) 40 meq 1X ONCE PO ; Start 02/21/19 at 13:45; Stop 02/21/19 at 13:47; Status DC Potassium Chloride (Klor-Con) 20 meq DAILYWBKFT PO Last administered on 02/22/19at 08:55; Start 02/22/19 at 08:00 Ibuprofen (Motrin) 600 mg PRN Q6HRS PRN PO INFLAMMATION Last administered on 02/22/19 03:59; Start 02/21/19 at 14:00 Ceftriaxone Sodium (Rocephin) 1 gm Q24H IVP Last administered on 02/21/19at 17:46; Start 02/21/19 at 16:30 Vancomycin HCl 1 gm/Sodium Chloride 250 ml @ 250 mls/hr Q8H IV Last administered on 02/22/19at 02:00; Start 02/22/19 at 02:00 Vancomycin HCl (Vancomycin Trough Level) 1 each 1X ONCE MC ; Start 02/23/19 at 01:30; Stop 02/23/19 at 01:31 Active Scripts Active Reported Atorvastatin Calcium 20 Mg Tablet 1 Tab PO DAILY Metformin Hcl 1,000 Mg Tablet 1,000 Mg PO BIDWMEALS Aspirin 81 Mg Tab.chew 1 Tab PO DAILY Levothyroxine Sodium 25 Mcg Tablet 1 Tab PO DAILY Hydrochlorothiazide Tablet (Hydrochlorothiazide) 25 Mg Tablet 25 Mg PO DAILY Amlodipine Besylate 5 Mg Tablet 5 Mg PO DAILY Vitals/I & O Vital Sign - Last 24 Hours 02/21/19 02/21/19 02/21/19 02/21/19 11:00 15:10 19:57 20:01 Temp 96.3 98.5 97.4 96.3 98.5 97.4 Pulse 89 84 79 Resp 20 17 B/P (MAP) 124/80 (95) 136/76 (96) 132/70 (90) Pulse Ox 96 98 94 O2 Delivery Room Air Room Air Room Air Room Air 02/21/19 02/22/19 02/22/19 02/22/19 23:54 03:39 07:00 08:54 Temp 97.6 97.4 97.9 97.6 97.4 97.9 Pulse 64 73 72 72 Resp 17 16 12 B/P (MAP) 145/77 (99) 133/75 (94) 148/87 (107) 148/87 Pulse Ox 98 95 98 O2 Delivery Room Air Room Air Room Air Intake and Output 02/21/19 02/21/19 02/22/19 14:59 22:59 06:59 Intake Total 280 ml 300 ml 1417 ml Output Total 1500 ml 1400 ml 1000 ml Balance -1220 ml -1100 ml 417 ml NACHO MAK MD February 22, 2019 08:59
--- NOTE | 2019-02-22 11:15 | PDOC ---
Infectious Disease Note Subjective Subjective c/o some foot pain after dressing change No F/C/S/N/V/D ROS ROS per HPI Vital Sign Vital Signs Vital Signs Date Time Temp Pulse Resp B/P (MAP) Pulse Ox O2 Delivery O2 Flow Rate FiO2 02/22/19 08:54 72 148/87 02/22/19 07:00 97.9 12 98 Room Air 97.9 Physical Exam PHYSICAL EXAM GENERAL: Propped up in bed, alert, smiling HEENT: Pupils equally round. Normal conjunctivae. Oral cavity/pharynx pink and moist. NECK: Supple. LUNGS: Clear to auscultation. HEART: S1, S2. ABDOMEN: Nondistended, soft and nontender with bowel sounds present. EXTREMITIES: No gross edema or cyanosis. Right foot dressing dry and intact. SKIN: Warm without generalized rash. NEUROLOGIC: Alert and responding appropriately Labs Lab Laboratory Tests Test 02/21/19 12:12 02/21/19 17:10 02/21/19 20:11 02/22/19 01:25 Glucose (Fingerstick) 97 mg/dL (70-99) 124 mg/dL (70-99) 234 mg/dL (70-99) Vancomycin Level Trough 8.0 mcg/mL (10.0-20.0) Vancomycin Last Dose Date [id number] Vancomycin Last Dose Time 1400 Test 02/22/19 03:30 02/22/19 08:11 White Blood Count 4.1 x10^3/uL (4.0-11.0) Red Blood Count 4.52 x10^6/uL (3.50-5.40) Hemoglobin 13.5 g/dL (12.0-15.5) Hematocrit 40.6 % (36.0-47.0) Mean Corpuscular Volume 90 fL (79-100) Mean Corpuscular Hemoglobin 30 pg (25-35) Mean Corpuscular Hemoglobin Concent 33 g/dL (31-37) Red Cell Distribution Width 14.6 % (11.5-14.5) Platelet Count 243 x10^3/uL (140-400) Neutrophils (%) (Auto) 63 % (31-73) Lymphocytes (%) (Auto) 24 % (24-48) Monocytes (%) (Auto) 6 % (0-9) Eosinophils (%) (Auto) 7 % (0-3) Basophils (%) (Auto) 1 % (0-3) Neutrophils # (Auto) 2.6 x10^3uL (1.8-7.7) Lymphocytes # (Auto) 1.0 x10^3/uL (1.0-4.8) Monocytes # (Auto) 0.2 x10^3/uL (0.0-1.1) Eosinophils # (Auto) 0.3 x10^3/uL (0.0-0.7) Basophils # (Auto) 0.0 x10^3/uL (0.0-0.2) Sodium Level 144 mmol/L (136-145) Potassium Level 3.9 mmol/L (3.5-5.1) Chloride Level 109 mmol/L (98-107) Carbon Dioxide Level 26 mmol/L (21-32) Anion Gap 9 (6-14) Blood Urea Nitrogen 10 mg/dL (7-20) Creatinine 0.9 mg/dL (0.6-1.0) Estimated GFR (Cockcroft-Gault) 78.4 BUN/Creatinine Ratio 11 (6-20) Glucose Level 122 mg/dL (70-99) Calcium Level 9.4 mg/dL (8.5-10.1) Total Bilirubin 0.3 mg/dL (0.2-1.0) Aspartate Amino Transf (AST/SGOT) 15 U/L (15-37) Alanine Aminotransferase (ALT/SGPT) 21 U/L (14-59) Alkaline Phosphatase 81 U/L (46-116) Total Protein 6.2 g/dL (6.4-8.2) Albumin 3.0 g/dL (3.4-5.0) Albumin/Globulin Ratio 0.9 (1.0-1.7) Glucose (Fingerstick) 135 mg/dL (70-99) Objective Assessment Paronychia right great toe s/p I and D with total nail avulsion, 02/20. ? cultures. ESR 15 Onychomycosis Allergy to sulfa and PCN w/ bumps Cocaine abuse Syncopal episode Diabetes II Hypothyroidism h/o seizure Plan Plan of Care vanc, Rocephin and Flagyl Trough 8.0 Local wound care Pain management per primary Pt seen and examined Agree with above A/P FRANCESCA BEYER [employer] February 22, 2019 11:15 TISHA MAURICE MD February 22, 2019 15:47
[2019-02-22] MEDS: BACITRACIN TOPICAL OINT 14GM TUBE. TP SCH ×2 (11:17→21:20)
--- NOTE | 2019-02-22 12:09 | RAD ---
MR BRAIN HISTORY: Dizziness, unable to walk COMPARISON: CT head from 02/20/2019 TECHNIQUE: Multiplanar, multisequence MR imaging of the brain was performed without contrast. FINDINGS: Faint FLAIR signal identified in the right frontal lobe could be chronic small vessel ischemic disease. Examination limited due to motion artifact. No evidence of acute intracranial hemorrhage. No abnormal restricted diffusion to indicate acute infarct. No extra-axial fluid collections. No midline shift or mass effect. Ventricular size is appropriate. Involutional changes identified in the bifrontal lobes. Midline structures have a normal anatomic configuration. Pituitary gland and infundibulum are unremarkable. Basal cisterns are patent. Arterial flow voids at the skull base and major dural venous sinuses are maintained. Globes and orbits are unremarkable. Paranasal sinuses and mastoid air cells are clear. IMPRESSION: 1. No acute intracranial findings. 2. Subtle increased FLAIR signal identified in the right frontal lobe white matter region could be chronic white matter changes. Electronically signed by: Jalen Carvajal MD (02/22/2019 12:06 PM) [facility]
--- NOTE | 2019-02-22 15:48 | PDOC ---
PROGRESS NOTES Assessment Assessment Syncopal spell. Dizziness. Increased headache. DM. HTN. HLD. Hypothyroidism. Cocaine positive. RECOMMENDATIONS/PLAN: ASA 81 mg - 325 mg daily. Continue Lipitor HS. Metoprolol 25 mg daily. Topamax 25 mg bid. Brain MRI: Negative. HISTORY OF THE PRESENT ILLNESS: his is a 58-y-old AA female admitted with complaints of right big toe pain and passing out. Reports that in the last 2 days she has been having right big toe pain. This is tender and slightly swollen. No hx of gout but does drink ETOH and denies heavy ingestion nor binge use. Reports no KENYON nor exertional CP in the last week. She is however stressed out at work due to her boss. Reports that this morning when she got up and started walking to towards the bathroom she got dizzy and passed out. She was standing and the next thing she was on the floor no apparent injury sustained. No visual or auditory disturbances, dysarthria but kenyon shave occasional AMBROSE. No bowel incontinence. She complained persistent headache and dizziness on 02/22/19. PAST MEDICAL HISTORY Cardiovascular: HTN, Hyperlipidemia Pulmonary: No pertinent hx CENTRAL NERVOUS SYSTEM: Seizure, Other (AMBROSE) GI: No pertinent hx Heme/Onc: No pertinent hx Hepatobiliary: No pertinent hx Psych: Anxiety Musculoskeletal: Osteoarthritis Rheumatologic: No pertinent hx Infectious disease: No pertinent hx ENT: No pertinent hx Renal/: No pertinent hx Endocrine: Diabetes (2), Hypothyroidism Dermatology: No pertinent hx PAST SURGICAL HISTORY Cholecystectomy, Hernia Repair, Hysterectomy FAMILY HISTORY Noncontributory to CV ALLERGIES Coded Allergies: Penicillins (Verified Allergy, Intermediate, HIVES, 02/20/19) Sulfa (Sulfonamide Antibiotics) (Verified Adverse Reaction, Intermediate, ITCHING, 02/20/19) SOCIAL HISTORY Smoke: <1 pack per day Drugs: Cocaine ALLERGY: NKDA Unknown MEDICATIONS: Refer to [facility] REVIEW OF SYSTEMS: Constitutional: No malnutrition, weight loss, cachexia. Head: No traumatic brain or head injury. Skin: No edema, or rash. Ear: No infection. Eyes: No vision loss or color blindness. Nose: No bleeding or purulent discharges. Hearing: No hearing decrease. Neck: No injury. Breast: No history of cancer, masses,or discharges. Cardiac: HTN, HLD. Pulmonary: smoking.. GI: No GI ulcer, GI bleeding. Urinary/genital: UTI. Endocrinologic: Diabetes Mellitus. Skeletomuscular: No muscular atrophy. Neurological: see HP. Psychiatric: drug use/abuse. Otherwise, not [id number] review of systems. PHYSICAL EXAMINATION: General appearance is in no acute distress. HEENT: Normocephalic and nontraumatic. Eyes, nose, ears, and throat are unremarkable. Neck is supple. No lymphadenopathy. No crepitus. Cardiovascular: S1, S2, regular rate and rhythm. Pulmonary: Clear to auscultation bilaterally. Abdomen: Bowel sounds are positive. Abdomen is soft, nontender, and nondistended. Extremities: No rash, lesions, or edema. No restriction of range of motion NEUROLOGICAL EXAMINATION: Alert Oriented to time, place and person. PERRL. EOMI. CN: no focal findings. Muscle tone: within normal. Muscle strength: 5 DTR: 2 Plantar reflex: Flexor response bilaterally Gait: not examined in bed. Sensory exam: no abnormal findings. No cerebellar signs elicited. F-T-N test accurate. ASA 81 mg - 325 mg daily. Continue Lipitor HS. Brain MRI w/o contrast.. Consulted cardiology. HISTORY OF THE PRESENT ILLNESS: his is a 58-y-old AA female admitted with complaints of right big toe pain and passing out. Reports that in the last 2 days she has been having right big toe pain. This is tender and slightly swollen. No hx of gout but does drink ETOH and denies heavy ingestion nor binge use. Reports no KENYON nor exertional CP in the last week. She is however stressed out at work due to her boss. Reports that this morning when she got up and started walking to towards the bathroom she got dizzy and passed out. She was standing and the next thing she was on the floor no apparent injury sustained. No visual or auditory disturbances, dysarthria but kenyon shave occasional AMBROSE. No bowel incontinence. She complained persistent headache and dizziness on 02/21/19. PAST MEDICAL HISTORY Cardiovascular: HTN, Hyperlipidemia Pulmonary: No pertinent hx CENTRAL NERVOUS SYSTEM: Seizure, Other (AMBROSE) GI: No pertinent hx Heme/Onc: No pertinent hx Hepatobiliary: No pertinent hx Psych: Anxiety Musculoskeletal: Osteoarthritis Rheumatologic: No pertinent hx Infectious disease: No pertinent hx ENT: No pertinent hx Renal/: No pertinent hx Endocrine: Diabetes (2), Hypothyroidism Dermatology: No pertinent hx PAST SURGICAL HISTORY Cholecystectomy, Hernia Repair, Hysterectomy FAMILY HISTORY Noncontributory to CV ALLERGIES Coded Allergies: Penicillins (Verified Allergy, Intermediate, HIVES, 02/20/19) Sulfa (Sulfonamide Antibiotics) (Verified Adverse Reaction, Intermediate, ITCHING, 02/20/19) SOCIAL HISTORY Smoke: <1 pack per day Drugs: Cocaine ALLERGY: NKDA Unknown MEDICATIONS: Refer to [facility] REVIEW OF SYSTEMS: Constitutional: No malnutrition, weight loss, cachexia. Head: No traumatic brain or head injury. Skin: No edema, or rash. Ear: No infection. Eyes: No vision loss or color blindness. Nose: No bleeding or purulent discharges. Hearing: No hearing decrease. Neck: No injury. Breast: No history of cancer, masses,or discharges. Cardiac: HTN, HLD. Pulmonary: smoking.. GI: No GI ulcer, GI bleeding. Urinary/genital: UTI. Endocrinologic: Diabetes Mellitus. Skeletomuscular: No muscular atrophy. Neurological: see HP. Psychiatric: drug use/abuse. Otherwise, not [id number] review of systems. PHYSICAL EXAMINATION: General appearance is in no acute distress. HEENT: Normocephalic and nontraumatic. Eyes, nose, ears, and throat are unremarkable. Neck is supple. No lymphadenopathy. No crepitus. Cardiovascular: S1, S2, regular rate and rhythm. Pulmonary: Clear to auscultation bilaterally. Abdomen: Bowel sounds are positive. Abdomen is soft, nontender, and nondistended. Extremities: No rash, lesions, or edema. No restriction of range of motion NEUROLOGICAL EXAMINATION: Alert Oriented to time, place and person. PERRL. EOMI. CN: no focal findings. Muscle tone: within normal. Muscle strength: 5 DTR: 2 Plantar reflex: Flexor response bilaterally Gait: not examined in bed. Sensory exam: no abnormal findings. No cerebellar signs elicited. F-T-N test accurate. Objective Objective Vital Signs Date Time Temp Pulse Resp B/P (MAP) Pulse Ox O2 Delivery O2 Flow Rate FiO2 02/22/19 13:49 98.2 78 16 115/87 (96) 99 Room Air 98.2 Intake and Output 02/22/19 07:00 Intake Total 1997 ml Output Total 3900 ml Balance -1903 ml Intake Oral 1747 ml IV Total 250 ml Output Urine Total 3900 ml Vitals Signs Vitals VS - Last 72 Hours, by Label Date Time Temp Pulse Resp B/P (MAP) Pulse Ox O2 Delivery O2 Flow Rate FiO2 02/22/19 13:49 98.2 78 16 115/87 (96) 99 Room Air 98.2 02/22/19 11:00 98.4 78 16 115/87 (96) 99 Room Air 98.4 02/22/19 08:54 72 148/87 02/22/19 08:00 Room Air 02/22/19 07:00 97.9 72 12 148/87 (107) 98 Room Air 97.9 02/22/19 03:39 97.4 73 16 133/75 (94) 95 Room Air 97.4 02/21/19 23:54 97.6 64 17 145/77 (99) 98 Room Air 97.6 02/21/19 20:01 Room Air 02/21/19 19:57 97.4 79 17 132/70 (90) 94 Room Air 97.4 02/21/19 15:10 98.5 84 20 136/76 (96) 98 Room Air 98.5 02/21/19 11:00 96.3 89 124/80 (95) 96 Room Air 96.3 02/21/19 08:00 Room Air 02/21/19 07:56 87 139/74 02/21/19 07:30 98.1 87 18 139/74 (95) 98 Room Air 98.1 Laboratory Laboratory Laboratory Tests Test 02/21/19 17:10 02/21/19 20:11 02/22/19 01:25 02/22/19 03:30 Glucose (Fingerstick) 124 mg/dL (70-99) 234 mg/dL (70-99) Vancomycin Level Trough 8.0 mcg/mL (10.0-20.0) Vancomycin Last Dose Date [id number] Vancomycin Last Dose Time 1400 White Blood Count 4.1 x10^3/uL (4.0-11.0) Red Blood Count 4.52 x10^6/uL (3.50-5.40) Hemoglobin 13.5 g/dL (12.0-15.5) Hematocrit 40.6 % (36.0-47.0) Mean Corpuscular Volume 90 fL (79-100) Mean Corpuscular Hemoglobin 30 pg (25-35) Mean Corpuscular Hemoglobin Concent 33 g/dL (31-37) Red Cell Distribution Width 14.6 % (11.5-14.5) Platelet Count 243 x10^3/uL (140-400) Neutrophils (%) (Auto) 63 % (31-73) Lymphocytes (%) (Auto) 24 % (24-48) Monocytes (%) (Auto) 6 % (0-9) Eosinophils (%) (Auto) 7 % (0-3) Basophils (%) (Auto) 1 % (0-3) Neutrophils # (Auto) 2.6 x10^3uL (1.8-7.7) Lymphocytes # (Auto) 1.0 x10^3/uL (1.0-4.8) Monocytes # (Auto) 0.2 x10^3/uL (0.0-1.1) Eosinophils # (Auto) 0.3 x10^3/uL (0.0-0.7) Basophils # (Auto) 0.0 x10^3/uL (0.0-0.2) Sodium Level 144 mmol/L (136-145) Potassium Level 3.9 mmol/L (3.5-5.1) Chloride Level 109 mmol/L (98-107) Carbon Dioxide Level 26 mmol/L (21-32) Anion Gap 9 (6-14) Blood Urea Nitrogen 10 mg/dL (7-20) Creatinine 0.9 mg/dL (0.6-1.0) Estimated GFR (Cockcroft-Gault) 78.4 BUN/Creatinine Ratio 11 (6-20) Glucose Level 122 mg/dL (70-99) Calcium Level 9.4 mg/dL (8.5-10.1) Total Bilirubin 0.3 mg/dL (0.2-1.0) Aspartate Amino Transf (AST/SGOT) 15 U/L (15-37) Alanine Aminotransferase (ALT/SGPT) 21 U/L (14-59) Alkaline Phosphatase 81 U/L (46-116) Total Protein 6.2 g/dL (6.4-8.2) Albumin 3.0 g/dL (3.4-5.0) Albumin/Globulin Ratio 0.9 (1.0-1.7) Test 02/22/19 08:11 02/22/19 11:59 Glucose (Fingerstick) 135 mg/dL (70-99) 92 mg/dL (70-99) Medication Medications Current Medications Ceftriaxone Sodium (Rocephin) 1 gm Q24H IVP Last administered on 02/21/19at 17:46; Start 02/21/19 at 16:30 Folic Acid (Folic Acid) 1 mg DAILY PO ; Start 02/25/19 at 09:00 Multivitamins (Thera M Plus) 1 tab DAILY PO ; Start 02/25/19 at 09:00 Potassium Chloride (Klor-Con) 20 meq [id number] PO Last administered on 02/22/19at 08:55; Start 02/22/19 at 08:00 Thiamine Mononitrate (Vitamin B-1) 100 mg DAILY PO ; Start 02/25/19 at 09:00 Vancomycin HCl (Vancomycin Trough Level) 1 each 1X ONCE MC ; Start 02/22/19 at 01:30; Stop 02/22/19 at 01:31; Status DC Vancomycin HCl (Vancomycin Trough Level) 1 each 1X ONCE MC ; Start 02/23/19 at 01:30; Stop 02/23/19 at 01:31 Vancomycin HCl 1 gm/Sodium Chloride 250 ml @ 250 mls/hr Q8H IV Last administered on 02/22/19at 10:26; Start 02/22/19 at 02:00 Comment Review of Relevant I have reviewed the following items paresh (where applicable) has been applied. JAGDISH COOPER MD February 22, 2019 15:48
[2019-02-22] MEDS: ENOXAPARIN 40 MG/0.4 ML SYRINGE. SQ SCH (16:53)
[2019-02-22] MEDS: cefTRIAXone IV Push 1 GM VIAL. IVP SCH (16:54)
[2019-02-22] MEDS: TOPIRAMATE 25 MG TABLET. PO SCH (21:12)
[2019-02-22] MEDS: LORazepam 0.5 MG TABLET PO PRN (21:20)
[2019-02-23 01:47] LABS: BASO # 0.1 x10^3/uL (0.0-0.2); BASO % 1 % (0-3); EOS # 0.3 x10^3/uL (0.0-0.7); EOS % 7 % (0-3); HEMATOCRIT 40.7 % (36.0-47.0); HEMOGLOBIN 13.8 g/dL (12.0-15.5); LYMPH # 1.5 x10^3/uL (1.0-4.8); LYMPH % 35 % (24-48); MEAN CORPUSCULAR HEMOGLOBIN 30 pg (25-35); MEAN CORPUSCULAR HGB CONC 34 g/dL (31-37); MEAN CORPUSCULAR VOLUME 89 fL (79-100); MONO # 0.3 x10^3/uL (0.0-1.1); MONO % 6 % (0-9); NEUT # 2.2 x10^3uL (1.8-7.7); NEUT % 51 % (31-73); PLATELET COUNT 240 x10^3/uL (140-400); RED CELL DISTRIBUTION WIDTH 14.4 % (11.5-14.5); WHITE BLOOD COUNT 4.4 x10^3/uL (4.0-11.0)
[2019-02-23 02:09] LABS: VANC TR 14.3 mcg/mL (10.0-20.0)
[2019-02-23] MEDS: VANCOMYCIN PER PHARMACY MC PRN (02:28)
[2019-02-23] MEDS: VANCOMYCIN 1 GM in IV NORMAL SALINE 250ML 250 ML IV SCH ×2 (02:29→09:48)
--- NOTE | 2019-02-23 02:30 | NUR ---
Pharmacy Vancomycin Dosing Note S: Consulted to monitor and dose vancomycin started 02/20/19. O: JONA CELIS is a 58 year old F with Cellulitis, . Other Antibiotics: CEFTRIAXONE 1GM IV Q24H (02/21) LABS: Last BUN: 10 Last Creatinine: 0.9 Creatinine Clearance: 66 mL/min Last WBC: 4.4 Last Procalcitonin: - Tmax (past 24 hours): 97.9 Microbiology: N/A I/O: Drug Levels: Last Trough level: 14.3 on 02/23/19 at 0130 Last dose given 02/22/19 at 1645 Vancomycin Dosing: Dosing Weight: Actual Target Trough: 10-20 A: Based on: Trough, Actual Wt and CrCl P: 1. 02/23/19 0200 Continue Vancomycin 1000 mg IV q8h 2. Follow up Trough level in 5 to 7 days as needed 3. Pharmacy will continue to monitor, follow and adjust therapy as needed. IMMANUEL WARREN RPH, 02/23/19 0231 Signed: 02/23/19 at 0232 by IMMANUEL WARREN RPH PHA
[2019-02-23 02:58] LABS: CALCIUM 9.2 mg/dL (8.5-10.1); CREATININE 0.8 mg/dL (0.6-1.0); GFR 89.8; POTASSIUM 3.8 mmol/L (3.5-5.1)
[2019-02-23 03:32] VITALS: BP 133/91
[2019-02-23] MEDS: PANTOPRAZOLE 40 MG TABLET.DR. PO SCH (06:20)
[2019-02-23] MEDS: LEVOTHYROXINE 25 MCG TABLET. PO SCH (06:21)
[2019-02-23 07:00] VITALS: BP 128/74
[2019-02-23] MEDS: BACITRACIN TOPICAL OINT 14GM TUBE. TP SCH (08:13)
[2019-02-23] MEDS: ASPIRIN CHEWABLE 81 MG TABLET. PO SCH (08:14)
[2019-02-23] MEDS: LACTOBACILLUS RHAMNOSUS GG 1 CAPSULE. PO SCH (08:14)
[2019-02-23] MEDS: hydroCHLOROthiazide 25 MG TABLET PO SCH (08:14)
[2019-02-23] MEDS: ATORVASTATIN CALCIUM 20 MG TABLET PO SCH (08:14)
[2019-02-23] MEDS: POTASSIUM CHLORIDE 20 MEQ TABLET.ER. PO SCH (08:14)
[2019-02-23] MEDS: metFORMIN 500 MG TABLET PO SCH (08:15)
[2019-02-23] MEDS: MULTIVIT INFUSN,ADULT 4,VIT K 10 ML, THIAMINE INJ 100 MG, FOLIC ACID INJ 1 MG in IV NOR... IV SCH (08:15)
[2019-02-23] MEDS: metroNIDAZOLE 500 MG TABLET PO SCH (08:15)
[2019-02-23] MEDS: amLODIPine BESYLATE 5 MG TABLET PO SCH (08:15)
[2019-02-23] MEDS: TOPIRAMATE 25 MG TABLET. PO SCH (08:15)
[2019-02-23] MEDS: ACETAMINOPHEN 325 MG TABLET. PO PRN (08:15)
[2019-02-23] MEDS ORDERED: METOPROLOL SUCC 24HR ER 25 MG TAB.ER.24H. PO SCH (09:00)
[2019-02-23] MEDS: LORazepam 0.5 MG TABLET PO PRN (09:48)
--- NOTE | 2019-02-23 09:51 | PDOC ---
PROGRESS NOTES History of Present Illness History of Present Illness Assessment/Plan Assessment/Plan Impression: 1. No acute intracranial abnormality is identified by CT. 2. prominence of bifrontal subarachnoid spaces which may be due to involutional change. 3. reported syncopal episode 4. alcohol abuse 5. cocaine abuse 6. elevated troponin i, high risk admit for CAD 7. DM2 8. Hypothyroidism 9.. Tobacco abuse disorder plan 1. admit cvc 2. neurology consult 3. neurochecks q 4 hrs 4. counseled on need to seek drug treatment program provided 5. cardiology consult 6. dvt prophylaxis 7. gi prophylaxis 8. echo 9. trend troponin i 10. dvt prophylaxis 11. gi prophylaxis 12, alcohol withdrawal precautions 13. outpt stress test pending test and complaince with cessation of substance abuse. 14. Decrease Topamax to 25 mg HS. 15. po vantin ON D/C PROCEDURE Procedure Pre op Diagnosis: Paronychia right hallux Post op DX: Same Procedure: Incision and drainage with total nail avulsion right hallux Anesthesia: hallux block 6mL of 1% lidocaine plain Surgeon: Dr. Chu 35 min pt exam,chart review D/C PLANNING, > 50% of time spent with exam, chart review, pt care coordination Danielle charles and Joao mri head today personally reviewed refusing to follow ADA DIET AMA Vitals Vitals Vital Signs Date Time Temp Pulse Resp B/P (MAP) Pulse Ox O2 Delivery O2 Flow Rate FiO2 02/23/19 08:15 66 128/74 02/23/19 08:00 Room Air 02/23/19 07:00 98.2 14 98 98.2 Physical Exam Physical Exam GENERAL: Propped up in bed, alert, smiling HEENT: Pupils equally round. Normal conjunctivae. Oral cavity/pharynx pink and moist. NECK: Supple. LUNGS: Clear to auscultation. HEART: S1, S2. ABDOMEN: Nondistended, soft and nontender with bowel sounds present. EXTREMITIES: No gross edema or cyanosis. Right foot dressing dry and intact. SKIN: Warm without generalized rash. NEUROLOGIC: Alert and responding appropriately General: Alert, Oriented X3, Cooperative, No acute distress Heart: Regular rate (SR), Normal S1, Normal S2, No murmurs Lungs: Clear Abdomen: Normal bowel sounds, Soft, No tenderness Extremities: No clubbing, No cyanosis (edal pulses), No edema Skin: No breakdown, No significant lesion Labs LABS Laboratory Tests Test 02/22/19 11:59 02/22/19 16:43 02/22/19 20:57 02/23/19 01:35 Glucose (Fingerstick) 92 mg/dL (70-99) 129 mg/dL (70-99) 147 mg/dL (70-99) White Blood Count 4.4 x10^3/uL (4.0-11.0) Red Blood Count 4.60 x10^6/uL (3.50-5.40) Hemoglobin 13.8 g/dL (12.0-15.5) Hematocrit 40.7 % (36.0-47.0) Mean Corpuscular Volume 89 fL (79-100) Mean Corpuscular Hemoglobin 30 pg (25-35) Mean Corpuscular Hemoglobin Concent 34 g/dL (31-37) Red Cell Distribution Width 14.4 % (11.5-14.5) Platelet Count 240 x10^3/uL (140-400) Neutrophils (%) (Auto) 51 % (31-73) Lymphocytes (%) (Auto) 35 % (24-48) Monocytes (%) (Auto) 6 % (0-9) Eosinophils (%) (Auto) 7 % (0-3) Basophils (%) (Auto) 1 % (0-3) Neutrophils # (Auto) 2.2 x10^3uL (1.8-7.7) Lymphocytes # (Auto) 1.5 x10^3/uL (1.0-4.8) Monocytes # (Auto) 0.3 x10^3/uL (0.0-1.1) Eosinophils # (Auto) 0.3 x10^3/uL (0.0-0.7) Basophils # (Auto) 0.1 x10^3/uL (0.0-0.2) Sodium Level 141 mmol/L (136-145) Potassium Level 3.8 mmol/L (3.5-5.1) Chloride Level 105 mmol/L (98-107) Carbon Dioxide Level 26 mmol/L (21-32) Anion Gap 10 (6-14) Blood Urea Nitrogen 11 mg/dL (7-20) Creatinine 0.8 mg/dL (0.6-1.0) Estimated GFR (Cockcroft-Gault) 89.8 Glucose Level 109 mg/dL (70-99) Calcium Level 9.2 mg/dL (8.5-10.1) Procalcitonin 0.10 ng/mL (0.00-0.10) Vancomycin Level Trough 14.3 mcg/mL (10.0-20.0) Vancomycin Last Dose Date Vancomycin Last Dose Time Test 02/23/19 07:48 Glucose (Fingerstick) 93 mg/dL (70-99) Assessment and Plan Assessmemt and Plan Problems Medical Problems: (1) Cocaine abuse Status: Acute (2) Diabetic infection of right foot Status: Acute (3) Elevated troponin I level Status: Acute (4) Headache Status: Acute (5) Syncope Status: Acute (6) Tobacco abuse Status: Acute (7) Tobacco abuse counseling Status: Acute Comment Review of Relevant I have reviewed the following items paresh (where applicable) has been applied. Labs Laboratory Tests Test 02/21/19 12:12 02/21/19 17:10 02/21/19 20:11 02/22/19 01:25 Glucose (Fingerstick) 97 mg/dL (70-99) 124 mg/dL (70-99) 234 mg/dL (70-99) Vancomycin Level Trough 8.0 mcg/mL (10.0-20.0) Vancomycin Last Dose Date [id number] Vancomycin Last Dose Time 1400 Test 02/22/19 03:30 02/22/19 08:11 02/22/19 11:59 02/22/19 16:43 White Blood Count 4.1 x10^3/uL (4.0-11.0) Red Blood Count 4.52 x10^6/uL (3.50-5.40) Hemoglobin 13.5 g/dL (12.0-15.5) Hematocrit 40.6 % (36.0-47.0) Mean Corpuscular Volume 90 fL (79-100) Mean Corpuscular Hemoglobin 30 pg (25-35) Mean Corpuscular Hemoglobin Concent 33 g/dL (31-37) Red Cell Distribution Width 14.6 % (11.5-14.5) Platelet Count 243 x10^3/uL (140-400) Neutrophils (%) (Auto) 63 % (31-73) Lymphocytes (%) (Auto) 24 % (24-48) Monocytes (%) (Auto) 6 % (0-9) Eosinophils (%) (Auto) 7 % (0-3) Basophils (%) (Auto) 1 % (0-3) Neutrophils # (Auto) 2.6 x10^3uL (1.8-7.7) Lymphocytes # (Auto) 1.0 x10^3/uL (1.0-4.8) Monocytes # (Auto) 0.2 x10^3/uL (0.0-1.1) Eosinophils # (Auto) 0.3 x10^3/uL (0.0-0.7) Basophils # (Auto) 0.0 x10^3/uL (0.0-0.2) Sodium Level 144 mmol/L (136-145) Potassium Level 3.9 mmol/L (3.5-5.1) Chloride Level 109 mmol/L (98-107) Carbon Dioxide Level 26 mmol/L (21-32) Anion Gap 9 (6-14) Blood Urea Nitrogen 10 mg/dL (7-20) Creatinine 0.9 mg/dL (0.6-1.0) Estimated GFR (Cockcroft-Gault) 78.4 BUN/Creatinine Ratio 11 (6-20) Glucose Level 122 mg/dL (70-99) Calcium Level 9.4 mg/dL (8.5-10.1) Total Bilirubin 0.3 mg/dL (0.2-1.0) Aspartate Amino Transf (AST/SGOT) 15 U/L (15-37) Alanine Aminotransferase (ALT/SGPT) 21 U/L (14-59) Alkaline Phosphatase 81 U/L (46-116) Total Protein 6.2 g/dL (6.4-8.2) Albumin 3.0 g/dL (3.4-5.0) Albumin/Globulin Ratio 0.9 (1.0-1.7) Glucose (Fingerstick) 135 mg/dL (70-99) 92 mg/dL (70-99) 129 mg/dL (70-99) Test 02/22/19 20:57 02/23/19 01:35 02/23/19 07:48 Glucose (Fingerstick) 147 mg/dL (70-99) 93 mg/dL (70-99) White Blood Count 4.4 x10^3/uL (4.0-11.0) Red Blood Count 4.60 x10^6/uL (3.50-5.40) Hemoglobin 13.8 g/dL (12.0-15.5) Hematocrit 40.7 % (36.0-47.0) Mean Corpuscular Volume 89 fL (79-100) Mean Corpuscular Hemoglobin 30 pg (25-35) Mean Corpuscular Hemoglobin Concent 34 g/dL (31-37) Red Cell Distribution Width 14.4 % (11.5-14.5) Platelet Count 240 x10^3/uL (140-400) Neutrophils (%) (Auto) 51 % (31-73) Lymphocytes (%) (Auto) 35 % (24-48) Monocytes (%) (Auto) 6 % (0-9) Eosinophils (%) (Auto) 7 % (0-3) Basophils (%) (Auto) 1 % (0-3) Neutrophils # (Auto) 2.2 x10^3uL (1.8-7.7) Lymphocytes # (Auto) 1.5 x10^3/uL (1.0-4.8) Monocytes # (Auto) 0.3 x10^3/uL (0.0-1.1) Eosinophils # (Auto) 0.3 x10^3/uL (0.0-0.7) Basophils # (Auto) 0.1 x10^3/uL (0.0-0.2) Sodium Level 141 mmol/L (136-145) Potassium Level 3.8 mmol/L (3.5-5.1) Chloride Level 105 mmol/L (98-107) Carbon Dioxide Level 26 mmol/L (21-32) Anion Gap 10 (6-14) Blood Urea Nitrogen 11 mg/dL (7-20) Creatinine 0.8 mg/dL (0.6-1.0) Estimated GFR (Cockcroft-Gault) 89.8 Glucose Level 109 mg/dL (70-99) Calcium Level 9.2 mg/dL (8.5-10.1) Procalcitonin 0.10 ng/mL (0.00-0.10) Vancomycin Level Trough 14.3 mcg/mL (10.0-20.0) Vancomycin Last Dose Date Vancomycin Last Dose Time Laboratory Tests Test 02/22/19 11:59 02/22/19 16:43 02/22/19 20:57 02/23/19 01:35 Glucose (Fingerstick) 92 mg/dL (70-99) 129 mg/dL (70-99) 147 mg/dL (70-99) White Blood Count 4.4 x10^3/uL (4.0-11.0) Red Blood Count 4.60 x10^6/uL (3.50-5.40) Hemoglobin 13.8 g/dL (12.0-15.5) Hematocrit 40.7 % (36.0-47.0) Mean Corpuscular Volume 89 fL (79-100) Mean Corpuscular Hemoglobin 30 pg (25-35) Mean Corpuscular Hemoglobin Concent 34 g/dL (31-37) Red Cell Distribution Width 14.4 % (11.5-14.5) Platelet Count 240 x10^3/uL (140-400) Neutrophils (%) (Auto) 51 % (31-73) Lymphocytes (%) (Auto) 35 % (24-48) Monocytes (%) (Auto) 6 % (0-9) Eosinophils (%) (Auto) 7 % (0-3) Basophils (%) (Auto) 1 % (0-3) Neutrophils # (Auto) 2.2 x10^3uL (1.8-7.7) Lymphocytes # (Auto) 1.5 x10^3/uL (1.0-4.8) Monocytes # (Auto) 0.3 x10^3/uL (0.0-1.1) Eosinophils # (Auto) 0.3 x10^3/uL (0.0-0.7) Basophils # (Auto) 0.1 x10^3/uL (0.0-0.2) Sodium Level 141 mmol/L (136-145) Potassium Level 3.8 mmol/L (3.5-5.1) Chloride Level 105 mmol/L (98-107) Carbon Dioxide Level 26 mmol/L (21-32) Anion Gap 10 (6-14) Blood Urea Nitrogen 11 mg/dL (7-20) Creatinine 0.8 mg/dL (0.6-1.0) Estimated GFR (Cockcroft-Gault) 89.8 Glucose Level 109 mg/dL (70-99) Calcium Level 9.2 mg/dL (8.5-10.1) Procalcitonin 0.10 ng/mL (0.00-0.10) Vancomycin Level Trough 14.3 mcg/mL (10.0-20.0) Vancomycin Last Dose Date Vancomycin Last Dose Time Test 02/23/19 07:48 Glucose (Fingerstick) 93 mg/dL (70-99) Medications Current Medications Sodium Chloride 1,000 ml @ 1,000 mls/hr 1X ONCE IV Last administered on 02/20/19at 08:24; Start 02/20/19 at 07:30; Stop 02/20/19 at 08:29; Status DC Meclizine HCl (Antivert) 25 mg 1X ONCE PO Last administered on 02/20/19at 09:28; Start 02/20/19 at 09:30; Stop 02/20/19 at 09:31; Status DC Ceftriaxone Sodium (Rocephin) 1 gm 1X ONCE IVP Last administered on 02/20/19at 09:28; Start 02/20/19 at 09:30; Stop 02/20/19 at 09:31; Status DC Aspirin (Children'S Aspirin) 324 mg 1X ONCE PO Last administered on 02/20/19at 09:28; Start 02/20/19 at 09:30; Stop 02/20/19 at 09:31; Status DC Fentanyl Citrate (Fentanyl 2ml Vial) 50 mcg 1X ONCE IV ; Start 02/20/19 at 09:45; Stop 02/20/19 at 09:46; Status DC Multivitamins 10 ml/Thiamine HCl 100 mg/Folic Acid 1 mg/Sodium Chloride 1,011.2 ml @ 100 mls/ hr DAILY IV Last administered on 02/23/19at 08:15; Start 02/20/19 at 11:00; Stop 02/24/19 at 19:07 Multivitamins (Thera M Plus) 1 tab DAILY PO Last administered on 02/20/19at 12:30; Start 02/20/19 at 11:00; Stop 02/20/19 at 15:13; Status DC Folic Acid (Folic Acid) 1 mg DAILY PO Last administered on 02/20/19at 12:30; Start 02/20/19 at 11:00; Stop 02/20/19 at 15:13; Status DC Thiamine HCl 100 mg/Dextrose 51 ml @ 100 mls/hr DAILY IV ; Start 02/21/19 at 09:00; Stop 02/25/19 at 09:31; Status UNV Lorazepam (Ativan) 4 mg PRN Q1HR PRN PO For CIWA 8-14; Start 02/20/19 at 10:15 Lorazepam (Ativan) 8 mg PRN Q1HR PRN PO For CIWA 15 or greater; Start 02/20/19 at 10:15 Lorazepam (Ativan Inj) 2 mg PRN Q1HR PRN IV For CIWA 8-14 Last administered on 02/20/19at 19:59; Start 02/20/19 at 10:15 Lorazepam (Ativan Inj) 4 mg PRN Q1HR PRN IV For CIWA 15 or greater; Start 02/20/19 at 10:15 Haloperidol Lactate (Haldol Inj) 5 mg PRN Q4HRS PRN IVP Hallucinatns,Confusn ,Delirium; Start 02/20/19 at 10:15 Diphenhydramine HCl (Benadryl) 25 mg PRN Q15MIN PRN IVP EPS symptoms 2'Haldol admin; Start 02/20/19 at 10:15 Clonidine HCl (Catapres) 0.1 mg PRN Q1HR PRN PO SBP > 180 or DBP > 100, MRX3; Start 02/20/19 at 10:15; Stop 02/20/19 at 15:12; Status DC Lorazepam (Ativan Inj) 2 mg PRN Q15MIN PRN IV SEE COMMENTS; Start 02/20/19 at 10:15; Status UNV Lorazepam (Ativan Inj) 4 mg PRN Q15MIN PRN IV SEE COMMENTS; Start 02/20/19 at 10:15; Status UNV Amlodipine Besylate (Norvasc) 5 mg DAILY PO Last administered on 02/23/19at 08:15; Start 02/20/19 at 11:00 Aspirin (Children'S Aspirin) 81 mg DAILY PO Last administered on 02/23/19at 08:14; Start 02/20/19 at 11:00 Atorvastatin Calcium (Lipitor) 20 mg DAILY PO Last administered on 02/23/19at 08:14; Start 02/20/19 at 11:00 Hydrochlorothiazide (Hydrodiuril) 25 mg DAILY PO Last administered on 02/23/19at 08:14; Start 02/20/19 at 11:00 Levothyroxine Sodium (Synthroid) 25 mcg DAILY06 PO Last administered on 02/23/19at 06:21; Start 02/20/19 at 11:00 Metformin HCl (Glucophage) 1,000 mg BIDWMEALS PO Last administered on 02/20/19at 17:00; Start 02/20/19 at 12:00; Stop 02/20/19 at 17:00; Status DC Thiamine Mononitrate (Vitamin B-1) 100 mg DAILY PO Last administered on 02/20/19at 12:30; Start 02/20/19 at 11:00; Stop 02/20/19 at 15:12; Status DC Pantoprazole Sodium (Protonix) 40 mg DAILYAC PO Last administered on 02/23/19at 06:20; Start 02/20/19 at 12:30 Enoxaparin Sodium (Lovenox 40mg Syringe) 40 mg Q24H SQ Last administered on 02/22/19at 16:53; Start 02/20/19 at 16:00 Sodium Chloride (Normal Saline Flush) 3 ml QSHIFT PRN IV AFTER MEDS AND BLOOD DRAWS; Start 02/20/19 at 12:15 Multivitamins 10 ml/Thiamine HCl 100 mg/Folic Acid 1 mg/Sodium Chloride 1,011.2 ml @ 125 mls/ hr Q8H IV ; Start 02/20/19 at 12:15; Status UNV Ondansetron HCl (Zofran) 4 mg PRN Q4HRS PRN IV NAUSEA/VOMITING; Start 02/20/19 at 12:15 Zolpidem Tartrate (Ambien) 5 mg PRN QHS PRN PO INSOMNIA; Start 02/20/19 at 12:15 Acetaminophen (Tylenol) 650 mg PRN Q4HRS PRN PO TEMP OVER 100.4F OR MILD PAIN Last administered on 02/21/19at 07:55; Start 02/20/19 at 12:15; Stop 02/21/19 at 10:22; Status DC Al Hydroxide/Mg Hydroxide (Mylanta Plus Xs) 30 ml PRN DAILY PRN PO HEARTBURN / GAS; Start 02/20/19 at 12:15 Clonidine HCl (Catapres) 0.1 mg PRN Q6HRS PRN PO SBP>160 OR DBP>90 Last administered on 02/22/19at 21:12; Start 02/20/19 at 12:15 Docusate Sodium (Colace) 100 mg PRN BID PRN PO CONSTIPATION; Start 02/20/19 at 12:15 Albuterol/ Ipratropium (Duoneb) 3 ml Q4H NEB Last administered on 02/20/19at 16:00; Start 02/20/19 at 12:00; Stop 02/20/19 at 18:44; Status DC Guaifenesin (Robitussin) 200 mg PRN Q4HRS PRN PO COUGH; Start 02/20/19 at 12:15 Lorazepam (Ativan) 0.5 mg PRN Q4HRS PRN PO ANXIETY / AGITATION Last administered on 02/23/19at 09:48; Start 02/20/19 at 12:15 Lorazepam (Ativan Inj) 2 mg PRN Q4HRS PRN IV ANXIETY / AGITATION; Start 02/20/19 at 12:15 Vancomycin HCl 1 gm/Dextrose 250 ml @ 250 mls/hr 1X ONCE IV ; Start 02/20/19 at 12:15; Stop 02/20/19 at 13:14; Status UNV Vancomycin HCl (Vanco Per Pharmacy) 1 each PRN DAILY PRN MC SEE COMMENTS Last administered on 02/23/19at 02:28; Start 02/20/19 at 12:45 Vancomycin HCl 1.5 gm/Sodium Chloride 500 ml @ 250 mls/hr 1X ONCE IV Last administered on 02/20/19at 14:10; Start 02/20/19 at 13:00; Stop 02/20/19 at 14:59; Status DC Vancomycin HCl 1 gm/Sodium Chloride 250 ml @ 250 mls/hr Q12H IV Last administered on 02/21/19at 14:13; Start 02/21/19 at 02:00; Stop 02/22/19 at 02:08; Status DC Vancomycin HCl (Vancomycin Trough Level) 1 each 1X ONCE MC ; Start 02/22/19 at 01:30; Stop 02/22/19 at 01:31; Status DC Thiamine Mononitrate (Vitamin B-1) 100 mg DAILY PO ; Start 02/25/19 at 09:00 Folic Acid (Folic Acid) 1 mg DAILY PO ; Start 02/25/19 at 09:00 Multivitamins (Thera M Plus) 1 tab DAILY PO ; Start 02/25/19 at 09:00 Lactobacillus Rhamnosus (Culturelle) 1 cap BID PO Last administered on 02/23/19at 08:14; Start 02/20/19 at 21:00 Metformin HCl (Glucophage) 1,000 mg DAILY08 PO Last administered on 02/23/19at 08:15; Start 02/21/19 at 08:00 Lidocaine HCl (Xylocaine 1% Pf 30ml Vial) 30 ml 1X ONCE INJ Last administered on 02/20/19at 17:15; Start 02/20/19 at 17:15; Stop 02/20/19 at 17:16; Status DC Neomycin/ Polymyxin/ Bacitracin (Triple Antibiotic Ointment) 1 pkt 1X ONCE TP Last administered on 02/20/19at 17:15; Start 02/20/19 at 17:15; Stop 02/20/19 at 17:16; Status DC Metronidazole (Flagyl) 500 mg Q12HR PO Last administered on 02/23/19at 08:15; Start 02/20/19 at 18:00 Acetaminophen (Tylenol) 650 mg PRN Q6HRS PRN PO FOOT PAIN, FEVER Last administered on 02/23/19at 08:15; Start 02/20/19 at 18:15 Bacitracin 1 quentin BID TP Last administered on 02/23/19at 08:13; Start 02/20/19 at 21:00 Acetaminophen (Tylenol) 500 mg PRN Q6HRS PRN PO MILD PAIN / TEMP; Start 02/20/19 at 18:15; Status UNV Albuterol Sulfate (Ventolin Neb Soln) 2.5 mg PRN Q4HRS PRN NEB SHORTNESS OF BREATH; Start 02/20/19 at 19:00 Potassium Chloride (Klor-Con) 40 meq 1X ONCE PO Last administered on 02/21/19at 07:58; Start 02/21/19 at 07:30; Stop 02/21/19 at 07:31; Status DC Potassium Chloride (Klor-Con) 40 meq 1X ONCE PO Last administered on 02/21/19at 10:47; Start 02/21/19 at 09:30; Stop 02/21/19 at 09:31; Status DC Potassium Chloride (Klor-Con) 40 meq 1X ONCE PO ; Start 02/21/19 at 13:45; Stop 02/21/19 at 13:47; Status DC Potassium Chloride (Klor-Con) 20 meq DAILYWBKFT PO Last administered on 02/23/19at 08:14; Start 02/22/19 at 08:00 Ibuprofen (Motrin) 600 mg PRN Q6HRS PRN PO INFLAMMATION Last administered on 02/22/19at 03:59; Start 02/21/19 at 14:00 Ceftriaxone Sodium (Rocephin) 1 gm Q24H IVP Last administered on 02/22/19 16:54; Start 02/21/19 at 16:30 Vancomycin HCl 1 gm/Sodium Chloride 250 ml @ 250 mls/hr Q8H IV Last administered on 02/23/19at 09:48; Start 02/22/19 at 02:00 Vancomycin HCl (Vancomycin Trough Level) 1 each 1X ONCE MC Last administered on 02/23/19at 01:30; Start 02/23/19 at 01:30; Stop 02/23/19 at 01:31; Status DC Metoprolol Succinate (Toprol Xl) 25 mg DAILY PO Last administered on 02/23/19 08:14; Start 02/23/19 at 09:00 Topiramate (Topamax) 25 mg BID PO Last administered on 02/23/19at 08:15; Start 02/22/19 at 21:00 Ondansetron HCl (Zofran) 4 mg STK-MED ONCE .ROUTE ; Start 02/20/19 at 11:36; Stop 02/23/19 at 09:15; Status DC Active Scripts Active Reported Atorvastatin Calcium 20 Mg Tablet 1 Tab PO DAILY Metformin Hcl 1,000 Mg Tablet 1,000 Mg PO BIDWMEALS Aspirin 81 Mg Tab.chew 1 Tab PO DAILY Levothyroxine Sodium 25 Mcg Tablet 1 Tab PO DAILY Hydrochlorothiazide Tablet (Hydrochlorothiazide) 25 Mg Tablet 25 Mg PO DAILY Amlodipine Besylate 5 Mg Tablet 5 Mg PO DAILY Vitals/I & O Vital Sign - Last 24 Hours 02/22/19 02/22/19 02/22/19 02/22/19 11:00 13:49 15:00 19:15 Temp 98.4 98.2 98.0 97.6 98.4 98.2 98.0 97.6 Pulse 78 78 68 79 Resp 16 16 16 17 B/P (MAP) 115/87 (96) 115/87 (96) 136/75 (95) 170/102 (124) Pulse Ox 99 99 98 98 O2 Delivery Room Air Room Air Room Air Room Air 02/22/19 02/22/19 02/22/19 02/23/19 19:50 21:12 23:45 03:32 Temp 98.3 98.2 98.3 98.2 Pulse 79 72 75 Resp 16 14 B/P (MAP) 170/102 127/70 (89) 133/91 (105) Pulse Ox 98 98 O2 Delivery Room Air Room Air Room Air 02/23/19 02/23/19 02/23/19 02/23/19 07:00 08:00 08:14 08:15 Temp 98.2 98.2 Pulse 66 66 66 Resp 14 B/P (MAP) 128/74 (92) 128/74 128/74 Pulse Ox 98 O2 Delivery Room Air Room Air Intake and Output 02/22/19 02/22/19 02/23/19 15:00 23:00 07:00 Intake Total 1200 ml 1200 ml 440 ml Output Total 800 ml 1300 ml Balance 400 ml 1200 ml -860 ml NACHO MAK MD February 23, 2019 09:51
--- NOTE | 2019-02-23 10:51 | PDOC ---
Infectious Disease Note Subjective Subjective feeling ok ROS ROS no n/v/d/fever Vital Sign Vital Signs Vital Signs Date Time Temp Pulse Resp B/P (MAP) Pulse Ox O2 Delivery O2 Flow Rate FiO2 02/23/19 08:15 66 128/74 02/23/19 08:00 Room Air 02/23/19 07:00 98.2 14 98 98.2 Physical Exam PHYSICAL EXAM GENERAL: Propped up in bed, alert, smiling HEENT: Pupils equally round. Normal conjunctivae. Oral cavity/pharynx pink and moist. NECK: Supple. LUNGS: Clear to auscultation. HEART: S1, S2. ABDOMEN: Nondistended, soft and nontender with bowel sounds present. EXTREMITIES: No gross edema or cyanosis. Right foot dressing dry and intact. SKIN: Warm without generalized rash. NEUROLOGIC: Alert and responding appropriately Labs Lab Laboratory Tests Test 02/22/19 11:59 02/22/19 16:43 02/22/19 20:57 02/23/19 01:35 Glucose (Fingerstick) 92 mg/dL (70-99) 129 mg/dL (70-99) 147 mg/dL (70-99) White Blood Count 4.4 x10^3/uL (4.0-11.0) Red Blood Count 4.60 x10^6/uL (3.50-5.40) Hemoglobin 13.8 g/dL (12.0-15.5) Hematocrit 40.7 % (36.0-47.0) Mean Corpuscular Volume 89 fL (79-100) Mean Corpuscular Hemoglobin 30 pg (25-35) Mean Corpuscular Hemoglobin Concent 34 g/dL (31-37) Red Cell Distribution Width 14.4 % (11.5-14.5) Platelet Count 240 x10^3/uL (140-400) Neutrophils (%) (Auto) 51 % (31-73) Lymphocytes (%) (Auto) 35 % (24-48) Monocytes (%) (Auto) 6 % (0-9) Eosinophils (%) (Auto) 7 % (0-3) Basophils (%) (Auto) 1 % (0-3) Neutrophils # (Auto) 2.2 x10^3uL (1.8-7.7) Lymphocytes # (Auto) 1.5 x10^3/uL (1.0-4.8) Monocytes # (Auto) 0.3 x10^3/uL (0.0-1.1) Eosinophils # (Auto) 0.3 x10^3/uL (0.0-0.7) Basophils # (Auto) 0.1 x10^3/uL (0.0-0.2) Sodium Level 141 mmol/L (136-145) Potassium Level 3.8 mmol/L (3.5-5.1) Chloride Level 105 mmol/L (98-107) Carbon Dioxide Level 26 mmol/L (21-32) Anion Gap 10 (6-14) Blood Urea Nitrogen 11 mg/dL (7-20) Creatinine 0.8 mg/dL (0.6-1.0) Estimated GFR (Cockcroft-Gault) 89.8 Glucose Level 109 mg/dL (70-99) Calcium Level 9.2 mg/dL (8.5-10.1) Procalcitonin 0.10 ng/mL (0.00-0.10) Vancomycin Level Trough 14.3 mcg/mL (10.0-20.0) Vancomycin Last Dose Date Vancomycin Last Dose Time Test 02/23/19 07:48 Glucose (Fingerstick) 93 mg/dL (70-99) Objective Assessment Paronychia right great toe s/p I and D with total nail avulsion, 02/20. ? cultures. ESR 15 Onychomycosis Allergy to sulfa and PCN w/ bumps Cocaine abuse Syncopal episode Diabetes II Hypothyroidism h/o seizure Plan Plan of Care Danielle charles and Joao,,, change to po vantin Trough 8.0 Local wound care Pain management per primary ok to d/c BRYNN MAURICE MD February 23, 2019 10:50
[2019-02-23 11:00] VITALS: BP 126/79
[2019-02-23] MEDS ORDERED: CEFDINIR 300 MG CAPSULE PO SCH (11:30)
--- NOTE | 2019-02-23 12:31 | NUR ---
SS following for discharge planning. SS reviewed pt chart. Pt is from home and is currently on room air. No discharge needs noted at this time. SS will continue to follow for discharge planning.
--- NOTE | 2019-02-23 14:07 | PDOC ---
PROGRESS NOTES Assessment Assessment Syncopal spell. Dizziness. Increased headache. DM. HTN. HLD. Hypothyroidism. Cocaine positive. RECOMMENDATIONS/PLAN: ASA 81 mg - 325 mg daily. Continue Lipitor HS. Metoprolol 25 mg daily. Decrease Topamax to 25 mg HS. Brain MRI: Negative. HISTORY OF THE PRESENT ILLNESS: his is a 58-y-old AA female admitted with complaints of right big toe pain and passing out. Reports that in the last 2 days she has been having right big toe pain. This is tender and slightly swollen. No hx of gout but does drink ETOH and denies heavy ingestion nor binge use. Reports no KENYON nor exertional CP in the last week. She is however stressed out at work due to her boss. Reports that this morning when she got up and started walking to towards the bathroom she got dizzy and passed out. She was standing and the next thing she was on the floor no apparent injury sustained. No visual or auditory disturbances, dysarthria but kenyon shave occasional AMBROSE. No bowel incontinence. She complained persistent headache and dizziness on 02/22/19. She stated on 02/23/19 that her headaches were improved but she had side effects of dizziness drowsiness from some side effects of medications but she did not know which medication causing her side effects. PAST MEDICAL HISTORY Cardiovascular: HTN, Hyperlipidemia Pulmonary: No pertinent hx CENTRAL NERVOUS SYSTEM: Seizure, Other (AMBROSE) GI: No pertinent hx Heme/Onc: No pertinent hx Hepatobiliary: No pertinent hx Psych: Anxiety Musculoskeletal: Osteoarthritis Rheumatologic: No pertinent hx Infectious disease: No pertinent hx ENT: No pertinent hx Renal/: No pertinent hx Endocrine: Diabetes (2), Hypothyroidism Dermatology: No pertinent hx PAST SURGICAL HISTORY Cholecystectomy, Hernia Repair, Hysterectomy FAMILY HISTORY Noncontributory to CV ALLERGIES Coded Allergies: Penicillins (Verified Allergy, Intermediate, HIVES, 02/20/19) Sulfa (Sulfonamide Antibiotics) (Verified Adverse Reaction, Intermediate, ITCHING, 02/20/19) SOCIAL HISTORY Smoke: <1 pack per day Drugs: Cocaine ALLERGY: NKDA Unknown MEDICATIONS: Refer to [facility] REVIEW OF SYSTEMS: Constitutional: No malnutrition, weight loss, cachexia. Head: No traumatic brain or head injury. Skin: No edema, or rash. Ear: No infection. Eyes: No vision loss or color blindness. Nose: No bleeding or purulent discharges. Hearing: No hearing decrease. Neck: No injury. Breast: No history of cancer, masses,or discharges. Cardiac: HTN, HLD. Pulmonary: smoking.. GI: No GI ulcer, GI bleeding. Urinary/genital: UTI. Endocrinologic: Diabetes Mellitus. Skeletomuscular: No muscular atrophy. Neurological: see HP. Psychiatric: drug use/abuse. Otherwise, not [id number] review of systems. PHYSICAL EXAMINATION: General appearance is in no acute distress. HEENT: Normocephalic and nontraumatic. Eyes, nose, ears, and throat are unremarkable. Neck is supple. No lymphadenopathy. No crepitus. Cardiovascular: S1, S2, regular rate and rhythm. Pulmonary: Clear to auscultation bilaterally. Abdomen: Bowel sounds are positive. Abdomen is soft, nontender, and nondistended. Extremities: No rash, lesions, or edema. No restriction of range of motion NEUROLOGICAL EXAMINATION: Alert Oriented to time, place and person. PERRL. EOMI. CN: no focal findings. Muscle tone: within normal. Muscle strength: 5 DTR: 2 Plantar reflex: Flexor response bilaterally Gait: At her baseline normal. Sensory exam: no abnormal findings. No cerebellar signs elicited. F-T-N test accurate. Objective Objective Vital Signs Date Time Temp Pulse Resp B/P (MAP) Pulse Ox O2 Delivery O2 Flow Rate FiO2 02/23/19 11:00 97.8 63 12 126/79 (95) 98 Room Air 97.8 Intake and Output 02/23/19 06:59 Intake Total 2840 ml Output Total 2100 ml Balance 740 ml Intake Oral 1840 ml IV Total 1000 ml Output Urine Total 2100 ml Vitals Signs Vitals VS - Last 72 Hours, by Label Date Time Temp Pulse Resp B/P (MAP) Pulse Ox O2 Delivery O2 Flow Rate FiO2 02/23/19 11:00 97.8 63 12 126/79 (95) 98 Room Air 97.8 02/23/19 08:15 66 128/74 02/23/19 08:14 66 128/74 02/23/19 08:00 Room Air 02/23/19 07:00 98.2 66 14 128/74 (92) 98 Room Air 98.2 02/23/19 03:32 98.2 75 14 133/91 (105) 98 Room Air 98.2 02/22/19 23:45 98.3 72 16 127/70 (89) 98 Room Air 98.3 02/22/19 21:12 79 170/102 02/22/19 19:50 Room Air 02/22/19 19:15 97.6 79 17 170/102 (124) 98 Room Air 97.6 02/22/19 15:00 98.0 68 16 136/75 (95) 98 Room Air 98.0 02/22/19 13:49 98.2 78 16 115/87 (96) 99 Room Air 98.2 02/22/19 11:00 98.4 78 16 115/87 (96) 99 Room Air 98.4 02/22/19 08:54 72 148/87 02/22/19 08:00 Room Air 02/22/19 07:00 97.9 72 12 148/87 (107) 98 Room Air 97.9 Laboratory Laboratory Laboratory Tests Test 02/22/19 16:43 02/22/19 20:57 02/23/19 01:35 02/23/19 07:48 Glucose (Fingerstick) 129 mg/dL (70-99) 147 mg/dL (70-99) 93 mg/dL (70-99) White Blood Count 4.4 x10^3/uL (4.0-11.0) Red Blood Count 4.60 x10^6/uL (3.50-5.40) Hemoglobin 13.8 g/dL (12.0-15.5) Hematocrit 40.7 % (36.0-47.0) Mean Corpuscular Volume 89 fL (79-100) Mean Corpuscular Hemoglobin 30 pg (25-35) Mean Corpuscular Hemoglobin Concent 34 g/dL (31-37) Red Cell Distribution Width 14.4 % (11.5-14.5) Platelet Count 240 x10^3/uL (140-400) Neutrophils (%) (Auto) 51 % (31-73) Lymphocytes (%) (Auto) 35 % (24-48) Monocytes (%) (Auto) 6 % (0-9) Eosinophils (%) (Auto) 7 % (0-3) Basophils (%) (Auto) 1 % (0-3) Neutrophils # (Auto) 2.2 x10^3uL (1.8-7.7) Lymphocytes # (Auto) 1.5 x10^3/uL (1.0-4.8) Monocytes # (Auto) 0.3 x10^3/uL (0.0-1.1) Eosinophils # (Auto) 0.3 x10^3/uL (0.0-0.7) Basophils # (Auto) 0.1 x10^3/uL (0.0-0.2) Sodium Level 141 mmol/L (136-145) Potassium Level 3.8 mmol/L (3.5-5.1) Chloride Level 105 mmol/L (98-107) Carbon Dioxide Level 26 mmol/L (21-32) Anion Gap 10 (6-14) Blood Urea Nitrogen 11 mg/dL (7-20) Creatinine 0.8 mg/dL (0.6-1.0) Estimated GFR (Cockcroft-Gault) 89.8 Glucose Level 109 mg/dL (70-99) Calcium Level 9.2 mg/dL (8.5-10.1) Procalcitonin 0.10 ng/mL (0.00-0.10) Vancomycin Level Trough 14.3 mcg/mL (10.0-20.0) Vancomycin Last Dose Date Vancomycin Last Dose Time Test 02/23/19 12:37 Glucose (Fingerstick) 78 mg/dL (70-99) Medication Medications Current Medications Cefdinir (Omnicef) 300 mg BID PO Last administered on 02/23/19at 11:32; Start 02/23/19 at 11:30 Folic Acid (Folic Acid) 1 mg DAILY PO ; Start 02/25/19 at 09:00 Metoprolol Succinate (Toprol Xl) 25 mg DAILY PO Last administered on 02/23/19at 08:14; Start 02/23/19 at 09:00 Multivitamins (Thera M Plus) 1 tab DAILY PO ; Start 02/25/19 at 09:00 Thiamine Mononitrate (Vitamin B-1) 100 mg DAILY PO ; Start 02/25/19 at 09:00 Topiramate (Topamax) 25 mg BID PO Last administered on 02/23/19at 08:15; Start 02/22/19 at 21:00 Vancomycin HCl (Vancomycin Trough Level) 1 each 1X ONCE MC Last administered on 02/23/19at 01:30; Start 02/23/19 at 01:30; Stop 02/23/19 at 01:31; Status DC Comment Review of Relevant I have reviewed the following items paresh (where applicable) has been applied. JAGDISH COOPER MD February 23, 2019 14:07
[2019-02-23 15:00] VITALS: BP 118/76
[2019-02-23] MEDS: ENOXAPARIN 40 MG/0.4 ML SYRINGE. SQ SCH (15:44)
--- NOTE | 2019-02-23 16:02 | PDOC3 ---
Discharge Summary Date of Admission: February 20, 2019 Date of Discharge: February 23, 2019 Follow-Up: 3-5 days Admitting Diagnosis comment: DISCHARGE DX Assessment/Plan Impression: 1. No acute intracranial abnormality is identified by CT. 2. prominence of bifrontal subarachnoid spaces which may be due to involutional change. 3. reported syncopal episode PRIMARY DX 4. alcohol abuse 5. cocaine abuse 6. elevated troponin i, high risk admit for CAD 7. DM2 8. Hypothyroidism 9.. Tobacco abuse disorder plan 1. admit cvc 2. neurology consult 3. neurochecks q 4 hrs 4. counseled on need to seek drug treatment program provided 5. cardiology consult 6. dvt prophylaxis 7. gi prophylaxis 8. echo 9. trend troponin i 10. dvt prophylaxis 11. gi prophylaxis 12, alcohol withdrawal precautions 13. outpt stress test pending test and complaince with cessation of substance abuse. 14. Decrease Topamax to 25 mg HS. 15. po vantin ON D/C PROCEDURE Procedure Pre op Diagnosis: Paronychia right hallux Post op DX: Same Procedure: Incision and drainage with total nail avulsion right hallux Anesthesia: hallux block 6mL of 1% lidocaine plain Surgeon: Dr. Chu 35 min pt exam,chart review D/C PLANNING, > 50% of time spent with exam, chart review, pt care coordination Dedra charles mri head today personally reviewed refusing to follow ADA DIET AMA Vitals Vitals Vital Signs Date Time Temp Pulse Resp B/P (MAP) Pulse Ox O2 Delivery O2 Flow Rate FiO2 02/23/19 08:15 66 128/74 02/23/19 08:00 Room Air 02/23/19 07:00 98.2 14 98 98.2 Physical Exam Physical Exam GENERAL: Propped up in bed, alert, smiling HEENT: Pupils equally round. Normal conjunctivae. Oral cavity/pharynx pink and moist. NECK: Supple. LUNGS: Clear to auscultation. HEART: S1, S2. ABDOMEN: Nondistended, soft and nontender with bowel sounds present. EXTREMITIES: No gross edema or cyanosis. Right foot dressing dry and intact. SKIN: Warm without generalized rash. NEUROLOGIC: Alert and responding appropriately General: Alert, Oriented X3, Cooperative, No acute distress Heart: Regular rate (SR), Normal S1, Normal S2, No murmurs Lungs: Clear Abdomen: Normal bowel sounds, Soft, No tenderness Extremities: No clubbing, No cyanosis (edal pulses), No edema Skin: No breakdown, No significant lesion FINAL DIAGNOSIS Problems Medical Problems: (1) Cocaine abuse Status: Acute (2) Diabetic infection of right foot Status: Acute (3) Elevated troponin I level Status: Acute (4) Headache Status: Acute (5) Syncope Status: Acute (6) Tobacco abuse Status: Acute (7) Tobacco abuse counseling Status: Acute Brief Hospital Course Ms. Hathaway is a 58 old [sex] who presented with [SYNCOPE/ COCAINE ABUSE ] CONDITION AT DISCHARGE: Improved Discharge Medications Current Medications Sodium Chloride 1,000 ml @ 1,000 mls/hr 1X ONCE IV Last administered on 02/20/19at 08:24; Start 02/20/19 at 07:30; Stop 02/20/19 at 08:29; Status DC Meclizine HCl (Antivert) 25 mg 1X ONCE PO Last administered on 02/20/19at 09:28; Start 02/20/19 at 09:30; Stop 02/20/19 at 09:31; Status DC Ceftriaxone Sodium (Rocephin) 1 gm 1X ONCE IVP Last administered on 02/20/19at 09:28; Start 02/20/19 at 09:30; Stop 02/20/19 at 09:31; Status DC Aspirin (Children'S Aspirin) 324 mg 1X ONCE PO Last administered on 02/20/19at 09:28; Start 02/20/19 at 09:30; Stop 02/20/19 at 09:31; Status DC Fentanyl Citrate (Fentanyl 2ml Vial) 50 mcg 1X ONCE IV ; Start 02/20/19 at 09:45; Stop 02/20/19 at 09:46; Status DC Multivitamins 10 ml/Thiamine HCl 100 mg/Folic Acid 1 mg/Sodium Chloride 1,011.2 ml @ 100 mls/ hr DAILY IV Last administered on 02/23/19at 08:15; Start 02/20/19 at 11:00; Stop 02/24/19 at 19:07 Multivitamins (Thera M Plus) 1 tab DAILY PO Last administered on 02/20/19at 12:30; Start 02/20/19 at 11:00; Stop 02/20/19 at 15:13; Status DC Folic Acid (Folic Acid) 1 mg DAILY PO Last administered on 02/20/19at 12:30; Start 02/20/19 at 11:00; Stop 02/20/19 at 15:13; Status DC Thiamine HCl 100 mg/Dextrose 51 ml @ 100 mls/hr DAILY IV ; Start 02/21/19 at 09:00; Stop 02/25/19 at 09:31; Status UNV Lorazepam (Ativan) 4 mg PRN Q1HR PRN PO For CIWA 8-14; Start 02/20/19 at 10:15 Lorazepam (Ativan) 8 mg PRN Q1HR PRN PO For CIWA 15 or greater; Start 02/20/19 at 10:15 Lorazepam (Ativan Inj) 2 mg PRN Q1HR PRN IV For CIWA 8-14 Last administered on 02/20/19at 19:59; Start 02/20/19 at 10:15 Lorazepam (Ativan Inj) 4 mg PRN Q1HR PRN IV For CIWA 15 or greater; Start 02/20/19 at 10:15 Haloperidol Lactate (Haldol Inj) 5 mg PRN Q4HRS PRN IVP Hallucinatns,Confusn,Delirium; Start 02/20/19 at 10:15 Diphenhydramine HCl (Benadryl) 25 mg PRN Q15MIN PRN IVP EPS symptoms 2'Haldol admin; Start 02/20/19 at 10:15 Clonidine HCl (Catapres) 0.1 mg PRN Q1HR PRN PO SBP > 180 or DBP > 100, MRX3; Start 02/20/19 at 10:15; Stop 02/20/19 at 15:12; Status DC Lorazepam (Ativan Inj) 2 mg PRN Q15MIN PRN IV SEE COMMENTS; Start 02/20/19 at 10:15; Status UNV Lorazepam (Ativan Inj) 4 mg PRN Q15MIN PRN IV SEE COMMENTS; Start 02/20/19 at 10:15; Status UNV Amlodipine Besylate (Norvasc) 5 mg DAILY PO Last administered on 02/23/19at 08:15; Start 02/20/19 at 11:00 Aspirin (Children'S Aspirin) 81 mg DAILY PO Last administered on 02/23/19 08:14; Start 02/20/19 at 11:00 Atorvastatin Calcium (Lipitor) 20 mg DAILY PO Last administered on 02/23/19 08:14; Start 02/20/19 at 11:00 Hydrochlorothiazide (Hydrodiuril) 25 mg DAILY PO Last administered on 02/23/19 08:14; Start 02/20/19 at 11:00 Levothyroxine Sodium (Synthroid) 25 mcg DAILY06 PO Last administered on 02/23/19 06:21; Start 02/20/19 at 11:00 Metformin HCl (Glucophage) 1,000 mg BIDWMEALS PO Last administered on 02/20/19 17:00; Start 02/20/19 at 12:00; Stop 02/20/19 at 17:00; Status DC Thiamine Mononitrate (Vitamin B-1) 100 mg DAILY PO Last administered on 02/20/19at 12:30; Start 02/20/19 at 11:00; Stop 02/20/19 at 15:12; Status DC Pantoprazole Sodium (Protonix) 40 mg DAILYAC PO Last administered on 02/23/19 06:20; Start 02/20/19 at 12:30 Enoxaparin Sodium (Lovenox 40mg Syringe) 40 mg Q24H SQ Last administered on 02/22/19at 16:53; Start 02/20/19 at 16:00 Sodium Chloride (Normal Saline Flush) 3 ml QSHIFT PRN IV AFTER MEDS AND BLOOD DRAWS; Start 02/20/19 at 12:15 Multivitamins 10 ml/Thiamine HCl 100 mg/Folic Acid 1 mg/Sodium Chloride 1,011.2 ml @ 125 mls/ hr Q8H IV ; Start 02/20/19 at 12:15; Status UNV Ondansetron HCl (Zofran) 4 mg PRN Q4HRS PRN IV NAUSEA/VOMITING; Start 02/20/19 at 12:15 Zolpidem Tartrate (Ambien) 5 mg PRN QHS PRN PO INSOMNIA; Start 02/20/19 at 12:15 Acetaminophen (Tylenol) 650 mg PRN Q4HRS PRN PO TEMP OVER 100.4F OR MILD PAIN Last administered on 02/21/19at 07:55; Start 02/20/19 at 12:15; Stop 02/21/19 at 10:22; Status DC Al Hydroxide/Mg Hydroxide (Mylanta Plus Xs) 30 ml PRN DAILY PRN PO HEARTBURN / GAS; Start 02/20/19 at 12:15 Clonidine HCl (Catapres) 0.1 mg PRN Q6HRS PRN PO SBP>160 OR DBP>90 Last administered on 02/22/19at 21:12; Start 02/20/19 at 12:15 Docusate Sodium (Colace) 100 mg PRN BID PRN PO CONSTIPATION; Start 02/20/19 at 12:15 Albuterol/ Ipratropium (Duoneb) 3 ml Q4H NEB Last administered on 02/20/19at 16:00; Start 02/20/19 at 12:00; Stop 02/20/19 at 18:44; Status DC Guaifenesin (Robitussin) 200 mg PRN Q4HRS PRN PO COUGH; Start 02/20/19 at 12:15 Lorazepam (Ativan) 0.5 mg PRN Q4HRS PRN PO ANXIETY / AGITATION Last administered on 02/23/19at 09:48; Start 02/20/19 at 12:15 Lorazepam (Ativan Inj) 2 mg PRN Q4HRS PRN IV ANXIETY / AGITATION; Start 02/20/19 at 12:15 Vancomycin HCl 1 gm/Dextrose 250 ml @ 250 mls/hr 1X ONCE IV ; Start 02/20/19 at 12:15; Stop 02/20/19 at 13:14; Status UNV Vancomycin HCl (Vanco Per Pharmacy) 1 each PRN DAILY PRN MC SEE COMMENTS Last administered on 02/23/19at 02:28; Start 02/20/19 at 12:45; Stop 02/23/19 at 10:54; Status DC Vancomycin HCl 1.5 gm/Sodium Chloride 500 ml @ 250 mls/hr 1X ONCE IV Last administered on 02/20/19at 14:10; Start 02/20/19 at 13:00; Stop 02/20/19 at 14:59; Status DC Vancomycin HCl 1 gm/Sodium Chloride 250 ml @ 250 mls/hr Q12H IV Last administered on 02/21/19at 14:13; Start 02/21/19 at 02:00; Stop 02/22/19 at 02: 08; Status DC Vancomycin HCl (Vancomycin Trough Level) 1 each 1X ONCE MC ; Start 02/22/19 at 01:30; Stop 02/22/19 at 01:31; Status DC Thiamine Mononitrate (Vitamin B-1) 100 mg DAILY PO ; Start 02/25/19 at 09:00 Folic Acid (Folic Acid) 1 mg DAILY PO ; Start 02/25/19 at 09:00 Multivitamins (Thera M Plus) 1 tab DAILY PO ; Start 02/25/19 at 09:00 Lactobacillus Rhamnosus (Culturelle) 1 cap BID PO Last administered on 02/23/19at 08:14; Start 02/20/19 at 21:00 Metformin HCl (Glucophage) 1,000 mg DAILY08 PO Last administered on 02/23/19at 08:15; Start 02/21/19 at 08:00 Lidocaine HCl (Xylocaine 1% Pf 30ml Vial) 30 ml 1X ONCE INJ Last administered on 02/20/19at 17:15; Start 02/20/19 at 17:15; Stop 02/20/19 at 17:16; Status DC Neomycin/ Polymyxin/ Bacitracin (Triple Antibiotic Ointment) 1 pkt 1X ONCE TP Last administered on 02/20/19at 17:15; Start 02/20/19 at 17:15; Stop 02/20/19 at 17:16; Status DC Metronidazole (Flagyl) 500 mg Q12HR PO Last administered on 02/23/19at 08:15; Start 02/20/19 at 18:00; Stop 02/23/19 at 10:53; Status DC Acetaminophen (Tylenol) 650 mg PRN Q6HRS PRN PO FOOT PAIN, FEVER Last administered on 02/23/19at 08:15; Start 02/20/19 at 18:15 Bacitracin 1 quentin BID TP Last administered on 02/23/19at 08:13; Start 02/20/19 at 21:00 Acetaminophen (Tylenol) 500 mg PRN Q6HRS PRN PO MILD PAIN / TEMP; Start 02/20/19 at 18:15; Status UNV Albuterol Sulfate (Ventolin Neb Soln) 2.5 mg PRN Q4HRS PRN NEB SHORTNESS OF BREATH; Start 02/20/19 at 19:00 Potassium Chloride (Klor-Con) 40 meq 1X ONCE PO Last administered on 02/21/19 07:58; Start 02/21/19 at 07:30; Stop 02/21/19 at 07:31; Status DC Potassium Chloride (Klor-Con) 40 meq 1X ONCE PO Last administered on 02/21/19at 10:47; Start 02/21/19 at 09:30; Stop 02/21/19 at 09:31; Status DC Potassium Chloride (Klor-Con) 40 meq 1X ONCE PO ; Start 02/21/19 at 13:45; Stop 02/21/19 at 13:47; Status DC Potassium Chloride (Klor-Con) 20 meq DAILYWBKFT PO Last administered on 02/23/19 08:14; Start 02/22/19 at 08:00 Ibuprofen (Motrin) 600 mg PRN Q6HRS PRN PO INFLAMMATION Last administered on 02/22/19 03:59; Start 02/21/19 at 14:00 Ceftriaxone Sodium (Rocephin) 1 gm Q24H IVP Last administered on 02/22/19 16:54; Start 02/21/19 at 16:30; Stop 02/23/19 at 10:53; Status DC Vancomycin HCl 1 gm/Sodium Chloride 250 ml @ 250 mls/hr Q8H IV Last administered on 02/23/19 09:48; Start 02/22/19 at 02:00; Stop 02/23/19 at 10:53; Status DC Vancomycin HCl (Vancomycin Trough Level) 1 each 1X ONCE MC Last administered on 02/23/19 01:30; Start 02/23/19 at 01:30; Stop 02/23/19 at 01:31; Status DC Metoprolol Succinate (Toprol Xl) 25 mg DAILY PO Last administered on 02/23/19 08:14; Start 02/23/19 at 09:00 Topiramate (Topamax) 25 mg BID PO Last administered on 02/23/19 08:15; Start 02/22/19 at 21:00; Stop 02/23/19 at 14:08; Status DC Ondansetron HCl (Zofran) 4 mg STK-MED ONCE .ROUTE ; Start 02/20/19 at 11:36; Stop 02/23/19 at 09:15; Status DC Cefdinir (Omnicef) 300 mg BID PO Last administered on 02/23/19at 11:32; Start 02/23/19 at 11:30 Topiramate (Topamax) 25 mg HS PO ; Start 02/23/19 at 21:00 Active Scripts Active Reported Atorvastatin Calcium 20 Mg Tablet 1 Tab PO DAILY Metformin Hcl 1,000 Mg Tablet 1,000 Mg PO BIDWMEALS Aspirin 81 Mg Tab.chew 1 Tab PO DAILY Levothyroxine Sodium 25 Mcg Tablet 1 Tab PO DAILY Hydrochlorothiazide Tablet (Hydrochlorothiazide) 25 Mg Tablet 25 Mg PO DAILY Amlodipine Besylate 5 Mg Tablet 5 Mg PO DAILY Vital Signs Vital Signs Date Time Temp Pulse Resp B/P (MAP) Pulse Ox O2 Delivery O2 Flow Rate FiO2 02/23/19 15:36 97 Room Air 02/23/19 15:00 96.0 62 14 118/76 (90) 96.0 Labs Laboratory Tests Test 02/21/19 17:10 02/21/19 20:11 02/22/19 01:25 02/22/19 03:30 Glucose (Fingerstick) 124 mg/dL (70-99) 234 mg/dL (70-99) Vancomycin Level Trough 8.0 mcg/mL (10.0-20.0) Vancomycin Last Dose Date [id number] Vancomycin Last Dose Time 1400 White Blood Count 4.1 x10^3/uL (4.0-11.0) Red Blood Count 4.52 x10^6/uL (3.50-5.40) Hemoglobin 13.5 g/dL (12.0-15.5) Hematocrit 40.6 % (36.0-47.0) Mean Corpuscular Volume 90 fL (79-100) Mean Corpuscular Hemoglobin 30 pg (25-35) Mean Corpuscular Hemoglobin Concent 33 g/dL (31-37) Red Cell Distribution Width 14.6 % (11.5-14.5) Platelet Count 243 x10^3/uL (140-400) Neutrophils (%) (Auto) 63 % (31-73) Lymphocytes (%) (Auto) 24 % (24-48) Monocytes (%) (Auto) 6 % (0-9) Eosinophils (%) (Auto) 7 % (0-3) Basophils (%) (Auto) 1 % (0-3) Neutrophils # (Auto) 2.6 x10^3uL (1.8-7.7) Lymphocytes # (Auto) 1.0 x10^3/uL (1.0-4.8) Monocytes # (Auto) 0.2 x10^3/uL (0.0-1.1) Eosinophils # (Auto) 0.3 x10^3/uL (0.0-0.7) Basophils # (Auto) 0.0 x10^3/uL (0.0-0.2) Sodium Level 144 mmol/L (136-145) Potassium Level 3.9 mmol/L (3.5-5.1) Chloride Level 109 mmol/L (98-107) Carbon Dioxide Level 26 mmol/L (21-32) Anion Gap 9 (6-14) Blood Urea Nitrogen 10 mg/dL (7-20) Creatinine 0.9 mg/dL (0.6-1.0) Estimated GFR (Cockcroft-Gault) 78.4 BUN/Creatinine Ratio 11 (6-20) Glucose Level 122 mg/dL (70-99) Calcium Level 9.4 mg/dL (8.5-10.1) Total Bilirubin 0.3 mg/dL (0.2-1.0) Aspartate Amino Transf (AST/SGOT) 15 U/L (15-37) Alanine Aminotransferase (ALT/SGPT) 21 U/L (14-59) Alkaline Phosphatase 81 U/L (46-116) Total Protein 6.2 g/dL (6.4-8.2) Albumin 3.0 g/dL (3.4-5.0) Albumin/Globulin Ratio 0.9 (1.0-1.7) Test 02/22/19 08:11 02/22/19 11:59 02/22/19 16:43 02/22/19 20:57 Glucose (Fingerstick) 135 mg/dL (70-99) 92 mg/dL (70-99) 129 mg/dL (70-99) 147 mg/dL (70-99) Test 02/23/19 01:35 02/23/19 07:48 02/23/19 12:37 White Blood Count 4.4 x10^3/uL (4.0-11.0) Red Blood Count 4.60 x10^6/uL (3.50-5.40) Hemoglobin 13.8 g/dL (12.0-15.5) Hematocrit 40.7 % (36.0-47.0) Mean Corpuscular Volume 89 fL (79-100) Mean Corpuscular Hemoglobin 30 pg (25-35) Mean Corpuscular Hemoglobin Concent 34 g/dL (31-37) Red Cell Distribution Width 14.4 % (11.5-14.5) Platelet Count 240 x10^3/uL (140-400) Neutrophils (%) (Auto) 51 % (31-73) Lymphocytes (%) (Auto) 35 % (24-48) Monocytes (%) (Auto) 6 % (0-9) Eosinophils (%) (Auto) 7 % (0-3) Basophils (%) (Auto) 1 % (0-3) Neutrophils # (Auto) 2.2 x10^3uL (1.8-7.7) Lymphocytes # (Auto) 1.5 x10^3/uL (1.0-4.8) Monocytes # (Auto) 0.3 x10^3/uL (0.0-1.1) Eosinophils # (Auto) 0.3 x10^3/uL (0.0-0.7) Basophils # (Auto) 0.1 x10^3/uL (0.0-0.2) Sodium Level 141 mmol/L (136-145) Potassium Level 3.8 mmol/L (3.5-5.1) Chloride Level 105 mmol/L (98-107) Carbon Dioxide Level 26 mmol/L (21-32) Anion Gap 10 (6-14) Blood Urea Nitrogen 11 mg/dL (7-20) Creatinine 0.8 mg/dL (0.6-1.0) Estimated GFR (Cockcroft-Gault) 89.8 Glucose Level 109 mg/dL (70-99) Calcium Level 9.2 mg/dL (8.5-10.1) Procalcitonin 0.10 ng/mL (0.00-0.10) Vancomycin Level Trough 14.3 mcg/mL (10.0-20.0) Vancomycin Last Dose Date Vancomycin Last Dose Time Glucose (Fingerstick) 93 mg/dL (70-99) 78 mg/dL (70-99) Laboratory Tests Test 02/22/19 16:43 02/22/19 20:57 02/23/19 01:35 02/23/19 07:48 Glucose (Fingerstick) 129 mg/dL (70-99) 147 mg/dL (70-99) 93 mg/dL (70-99) White Blood Count 4.4 x10^3/uL (4.0-11.0) Red Blood Count 4.60 x10^6/uL (3.50-5.40) Hemoglobin 13.8 g/dL (12.0-15.5) Hematocrit 40.7 % (36.0-47.0) Mean Corpuscular Volume 89 fL (79-100) Mean Corpuscular Hemoglobin 30 pg (25-35) Mean Corpuscular Hemoglobin Concent 34 g/dL (31-37) Red Cell Distribution Width 14.4 % (11.5-14.5) Platelet Count 240 x10^3/uL (140-400) Neutrophils (%) (Auto) 51 % (31-73) Lymphocytes (%) (Auto) 35 % (24-48) Monocytes (%) (Auto) 6 % (0-9) Eosinophils (%) (Auto) 7 % (0-3) Basophils (%) (Auto) 1 % (0-3) Neutrophils # (Auto) 2.2 x10^3uL (1.8-7.7) Lymphocytes # (Auto) 1.5 x10^3/uL (1.0-4.8) Monocytes # (Auto) 0.3 x10^3/uL (0.0-1.1) Eosinophils # (Auto) 0.3 x10^3/uL (0.0-0.7) Basophils # (Auto) 0.1 x10^3/uL (0.0-0.2) Sodium Level 141 mmol/L (136-145) Potassium Level 3.8 mmol/L (3.5-5.1) Chloride Level 105 mmol/L (98-107) Carbon Dioxide Level 26 mmol/L (21-32) Anion Gap 10 (6-14) Blood Urea Nitrogen 11 mg/dL (7-20) Creatinine 0.8 mg/dL (0.6-1.0) Estimated GFR (Cockcroft-Gault) 89.8 Glucose Level 109 mg/dL (70-99) Calcium Level 9.2 mg/dL (8.5-10.1) Procalcitonin 0.10 ng/mL (0.00-0.10) Vancomycin Level Trough 14.3 mcg/mL (10.0-20.0) Vancomycin Last Dose Date Vancomycin Last Dose Time Test 02/23/19 12:37 Glucose (Fingerstick) 78 mg/dL (70-99) Allergies Allergies Coded Allergies Type Severity Reaction Last Updated Verified Penicillins Allergy Intermediate HIVES 02/23/19 Yes Sulfa (Sulfonamide Antibiotics) Adverse Reaction Intermediate ITCHING 02/20/19 Yes Disposition/Orders: D/C to Home Patient Instructions D/C PLANNING 37 MIN NACHO MAK MD February 23, 2019 16:02
[2019-02-23] MEDS ORDERED: MULT1TAB90 PO (16:08)
[2019-02-23] MEDS ORDERED: FOLI1TAB16 PO (16:08)
[2019-02-23] MEDS ORDERED: POTA20TA4 PO (16:08)
[2019-02-23] MEDS ORDERED: IBUP-1227 PO (16:08)
[2019-02-23] MEDS ORDERED: CEFD300C PO (16:08)
[2019-02-23] MEDS ORDERED: TOPI25TA52 PO (16:08)
[2019-02-23] MEDS ORDERED: ALBU2.5V8 NEB (16:08)
[2019-02-23] MEDS ORDERED: ACET325T9 PO (16:08)
[2019-02-23] MEDS ORDERED: BACI28.43 TP (16:08)
[2019-02-23] MEDS ORDERED: METO-239 PO (16:08)
[2019-02-23] MEDS ORDERED: THIA100T22 PO (16:08)
[2019-02-23] MEDS ORDERED: DOCU-109 PO (16:08)
--- NOTE | 2019-02-23 16:11 | DISCH ---
DISCHARGE INSTRUCTIONS Condition on Discharge Condition on Discharge: Stable Activity After Discharge Activity Instructions for Disc: Activity as tolerated Lifting Instructions after Dis: No heavy lifting, No pulling or pushing Driving Instructions after Dis: Do not drive Diet after Discharge Diet after Discharge: Cardiac Contacting the DR. after DC Call your doctor for: If your condition worsens NACHO MAK MD February 23, 2019 16:11
--- NOTE | 2019-02-23 18:00 | NUR ---
Discharge Note: PT DISCHARGED HOME WITH SELF CARE, PT LEFT VIA PRIVATE VEHICLE WITH BROTHER. PT STABLE UPON DISCHARGE. PT PIV PULLED FROM L FOREARM WITHOUT COMPLICATIONS, BANDAGE APPLIED. PT GIVEN WORK RELEASE FOR Saturday02/27/19. PT EDUCATED ABOUT WOUND CARE TO R GREAT TOE, AND FOLLOW-UP INSTRUCTIONS. NO CONCERNS VOICED. JONA CELIS Discharge instructions and discharge home medications reviewed with Patient and a copy given. All questions have been answered and understanding verbalized.
[2019-02-23] MEDS ORDERED: TOPIRAMATE 25 MG TABLET. PO SCH (21:00)
--- NOTE | 2019-02-24 09:46 | EEG ---
DATE OF SERVICE: 02/22/2019 EEG NUMBER: [id number]. OBJECTIVE: This is a 58-year-old female patient with syncopal episodes. EEG was requested to help rule out seizure. METHODS: Twenty electrodes were applied according to the international 10-20 electrode placement system. EKG monitoring, hyperventilation, intermittent photic stimulation, monopolar and bipolar montages are routinely utilized. The record was obtained on a digital system with video monitoring. FINDINGS: 1. Background: The patient was recorded in the awake, drowsy and sleep states. The overall background amplitude is 10-30 microvolts. A posterior dominant rhythm of 8-10 Hz is observed. 2. Abnormalities: No specific epileptiform discharge or electrographic seizure is seen. No focal or diffuse slowing. 3. Activation: Hyperventilation was performed with fair efforts and normal response. Intermittent photic stimulation was performed with photic driving. No specific epileptiform discharge or electrographic seizure induced by hyperventilation or intermittent photic stimulation. IMPRESSION: This EEG is a normal study for the awake, drowsy, and sleep states. No focal, lateralizing, specific epileptiform discharge or electrographic seizure is seen. JAGDISH COOPER MD DR: ZACKARY/deepti JOB#: [id number] / [id number] KALEIGH
[2019-02-25] MEDS ORDERED: THIAMINE 100 MG TABLET. PO SCH (09:00)
[2019-02-25] MEDS ORDERED: MULTIVITAMIN with MINERAL TABLET. PO SCH (09:00)
[2019-02-25] MEDS ORDERED: FOLIC ACID 1 MG TABLET. PO SCH (09:00)
== END 2019-02-23 17:15 | disposition home or self-care (01) | DRG 603 ==
LOC: ER 07:03 → 2 NORTH 09:14
PROVIDERS: ADMIT Family Medicine; ATTEND Family Medicine
PROC: 0HDRXZZ Extraction of Toe Nail, External Approach (ICD-10-PCS; principal; 2019-02-20)
DX: L03.031 Cellulitis of right toe (principal); B35.1 Tinea unguium; E78.00 Pure hypercholesterolemia, unspecified; E11.9 Type 2 diabetes mellitus without complications; E03.9 Hypothyroidism, unspecified; F14.10 Cocaine abuse, uncomplicated; F17.210 Nicotine dependence, cigarettes, uncomplicated; I10 Essential (primary) hypertension; F10.20 Alcohol dependence, uncomplicated; E78.5 Hyperlipidemia, unspecified; F41.9 Anxiety disorder, unspecified; M19.90 Unspecified osteoarthritis, unspecified site; Z90.710 Acquired absence of both cervix and uterus; Z90.49 Acquired absence of other specified parts of digestive tract; Z88.0 Allergy status to penicillin; Z88.2 Allergy status to sulfonamides; Z71.6 Tobacco abuse counseling; Z82.49 Family history of ischemic heart disease and other diseases of the circulatory system; Z79.899 Other long term (current) drug therapy; Z79.82 Long term (current) use of aspirin
CPT/HCPCS: 36415; 70450; 70551; 71046; 73660; 80048; 80053; 80061; 80202; 80307; 81001; 82550; 82962; 83605; 83735; 84145; 84484; 84550; 85025; 85651; 93005; 93306; 94640; 94760; 95816; 96360; G0480; J0696; J1650; J2060; J2405; J3370; J7030; J7040; J7050; J7620; J8597; 99285-25

== ENCOUNTER 2021-08-14 13:15 | Emergency (ER) | payer OTHER ==
[~2021-08-14] VITALS: Ht 160 cm; Wt 73.6 kg
[~2021-08-14 13:15] MED LIST: ACET325T9 PO; ALBU2.5V8 NEB; AMLO-186 PO; ASPI-630 PO; ATOR20TA58 PO; BACI28.43 TP; CEFD300C PO; DOCU-109 PO; FOLI1TAB16 PO; HYDR-2145 PO; IBUP-1670 PO; LEVO25TA4 PO; METF10007 PO; METO-239 PO; MULT1TAB92 PO; POTA-121 PO; THIA100T22 PO; TOPI25TA52 PO
[2021-08-14] MEDS ORDERED: diazePAM 5 MG TABLET PO ONE (15:00)
[2021-08-14] MEDS ORDERED: fentaNYL PF VIAL 100 MCG/2 ML VIAL IVP ONE (15:00)
[2021-08-14] MEDS ORDERED: methylPREDNISolone ACETATE 80 MG/ML VIAL. IM ONE (15:00)
[2021-08-14] MEDS ORDERED: ONDANSETRON PF 4 MG/2 ML VIAL. IVP ONE (16:15)
[2021-08-14 16:20] LABS: BASO # 0.1 x10^3/uL (0.0-0.2); BASO % 1 % (0-3); EOS # 0.1 x10^3/uL (0.0-0.7); EOS % 1 % (0-3); HEMATOCRIT 41.9 % (36.0-47.0); HEMOGLOBIN 14.6 g/dL (12.0-15.5); LYMPH # 1.9 x10^3/uL (1.0-4.8); LYMPH % 18 % (24-48); MEAN CORPUSCULAR HEMOGLOBIN 30 pg (25-35); MEAN CORPUSCULAR HGB CONC 35 g/dL (31-37); MEAN CORPUSCULAR VOLUME 87 fL (79-100); MONO # 0.9 x10^3/uL (0.0-1.1); MONO % 9 % (0-9); NEUT # 7.5 x10^3/uL (1.8-7.7); NEUT % 71 % (31-73); PLATELET COUNT 351 x10^3/uL (140-400); RED CELL DISTRIBUTION WIDTH 13.8 % (11.5-14.5); WHITE BLOOD COUNT 10.5 x10^3/uL (4.0-11.0)
--- NOTE | 2021-08-14 16:21 | PHYS DOC ---
Past Medical History Past Medical History: Diabetes-Type II, High Cholesterol, Hypertension, H ypothyroid, Other Additional Past Medical Histor: frequent headaches Past Surgical History: Cholecystectomy, Hysterectomy, Other Additional Past Surgical Histo: hernia repair Smoking Status: Current Every Day Smoker Additional Information: 5-10 CIGARETTES PER DAY Alcohol Use: Occasionally Additional Information: ONLY ON WEEKENDS Drug Use: Cocaine General Adult EDM: Chief Complaint: SHOUDLER HPI: HPI: Patient is a 61-year-old female who presents to the emergency department requesting an MRI of her right shoulder and neck. Patient reports she was supposed to get an MRI at however her client resolution specialist elected to give her a steroid injection and told her she could not get an MRI for 3 more weeks. Patient reports ongoing neck and shoulder pain. States she has had shoulder pain for well over a month, nontraumatic, reports her next primary care physician appointment is not until September 15, patient states she cannot wait any longer and wants her MRI done today, patient states she was told she could get it done here at the emergency department at [facility]. Patient reports she is hurting so bad that she becomes nauseated and dry heaves. Patient reports a 10 out of 10 pain. Patient denies chest pains or shortness of breath. Denies recent fever or chills. Denies other physical complaints or physical concerns Review of Systems: Review of Systems: 14 body systems of review of systems have been reviewed. See HPI for pertinent positives and negative responses, otherwise all other systems are negative, nonpertinent or noncontributory. Constitutional: Negative except as outlined in HPI above. Skin: Negative except as outlined in HPI above. Eyes: Negative except as outlined in HPI above. HENT: Negative except as outlined in HPI above. Respiratory: Negative except as outlined in HPI above. Cardiovascular: Negative except as outlined in HPI above. GI: Negative except as outlined in HPI above. : Negative except as outlined in HPI above. Musculoskeletal: Negative except as outlined in HPI above. Integument: Negative except as outlined in HPI above. Neurologic: Negative except as outlined in HPI above. Endocrine: Negative except as outlined in HPI above. Lymphatic: Negative except as outlined in HPI above. Psychiatric: Negative except as outlined in HPI above. Heart Score: C/O Chest Pain: No Risk Factors: Risk Factors: DM, Current or recent (<one month) smoker, HTN, HLP, family history of CAD, obesity. Risk Scores: Score 0 - 3: 2.5% MACE over next 6 weeks - Discharge Home Score 4 - 6: 20.3% MACE over next 6 weeks - Admit for Clinical Observation Score 7 - 10: 72.7% MACE over next 6 weeks - Early Invasive Strategies Current Medications: Current Medications Medications (Trade) Dose Ordered Sig/Ted Start Time Stop Time Status Last Admin Dose Admin Diazepam (Valium) 5 mg 1X ONCE 08/14/21 15:00 08/14/21 15:02 DC 08/14/21 15:30 5 MG Fentanyl Citrate (Fentanyl 2ml Vial) 75 mcg 1X ONCE 08/14/21 15:00 08/14/21 15:02 DC Methylprednisolone Acetate (DEPO-Medrol 80MG VIAL) 80 mg 1X ONCE 08/14/21 15:00 08/14/21 15:02 DC Ondansetron HCl (Zofran) 4 mg 1X ONCE 08/14/21 16:15 08/14/21 16:16 Allergies: Allergies: Allergies Coded Allergies Type Severity Reaction Last Updated Verified Penicillins Allergy Intermediate HIVES 02/23/19 Yes Sulfa (Sulfonamide Antibiotics) Adverse Reaction Intermediate ITCHING 02/20/19 Yes Physical Exam: PE: Constitutional: Well developed, well nourished, no acute distress, non-toxic appearance. 52-year-old female in no apparent distress. Patient is complaint of pain exceeds patient's physical examination and presentation. HENT: Normocephalic, atraumatic. Eyes: Conjunctiva normal, no discharge. Neck: Normal range of motion, no stridor. No C-spine tenderness to palpation. Cardiovascular: No cyanosis appreciated, distal cap refill less than 2 seconds. Lungs & Thorax: Patient is in no respiratory distress, no audible adventitious lung sounds appreciated. Abdomen: Nontender, no abnormalities noted. Skin: Warm, dry, no erythema, no rash. Back: No midline spinal tenderness, no deformities. Pain to palpation on trapezius muscular structures and anterior shoulder muscular structures. Extremities: No tenderness, no cyanosis, no clubbing, ROM intact, no edema. Full active range of motion of right shoulder joint during examination and patient's explanation of where her pain is pinpointed. No paresthesia appreciated, no crepitus appreciated of right shoulder, distal cap refill less than 2 seconds, 2+ bilateral radial pulses. Neurologic: Alert and oriented X 3, normal motor function, normal sensory function, no focal deficits noted. Psychologic: Affect normal, judgement normal, mood normal. Current Patient Data: Vital Signs: Vital Signs Date Time Temp Pulse Resp B/P (MAP) Pulse Ox O2 Delivery O2 Flow Rate FiO2 08/14/21 14:34 98.3 Room Air 98.3 EKG: EKG: [] Radiology/Procedures: Radiology/Procedures: [] Course & Med Decision Making: Course & Med Decision Making Pertinent Labs and Imaging studies reviewed. (See chart for details) 61-year-old female, vital signs reviewed, presents to the emergency department requesting an MRI of her neck and shoulder. 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 Patient was initially calm and cooperative during physical examination however when explained to patient would need to obtain MRI on an outpatient visit patient immediately became hypervigilant, started dry heaving, crying in pain, writhing around the bed complained of immediate abdominal pain upon hearing the news about MRIs. Will order CBC, BMP, lipase, obtain urine for urinalysis assay, will give pain medications. Will reevaluate after period of time. Patient reports mild pain relief with medications given in the ED. Patient's urine is infected, will prescribe antibiotic regimen, patient's potassium is slightly low at 3.2, will recommend potassium rich foods other labs unremarkable. Will give recommendation for orthopedic follow-up related to neuropathy of right upper extremity. Discussed with the patient all findings and diagnostic testing as well as the need to follow-up with their primary care provider for further evaluation and treatment or return to the ED if any new or worsening symptoms. Strict return precautions were also discussed at length, the patient voiced understanding and agreement with the discharge planning. The patient was nontoxic in appearance, in no apparent distress, and hemodynamically stable at the time of disposition. David Disclaimer: David Disclaimer: This electronic medical record was generated, in whole or in part, using a voice recognition dictation system. Departure Departure Impression: Primary Impression: Urinary tract infection Qualified Codes: N30.01 - Acute cystitis with hematuria Additional Impression: Neuropathic pain of right shoulder Disposition: HOME / SELF CARE / HOMELESS Condition: GOOD Referrals: UNKNOWN PCP NAME (PCP) KALYANI ABBOTT DO Patient Instructions: Urinary Tract Infection Additional Instructions: You were seen today in the emergency department for ongoing pain of your right shoulder area, you had stated your orthopedic doctor [facility] would be unable to schedule an MRI appointment for you for another 3 weeks. As we discussed MRI for this type of presentation is done on an outpatient basis through an orthopedic surgeon evaluation and order. I am providing you an orthopedic surgeon to follow-up with Dr. Abbott, please call tomorrow for an appointment to be seen soon. You may continue to take [id number] Tylenol and or Motrin for ongoing aches and pains of your right shoulder your urine did show signs of urinary tract infection, as we discussed I am starting you on a antibiotic and sending it to the pharmacy of your choice, please take as directed. Return to the emergency department for worsening symptoms or other concerns. Discussed with the patient all findings and diagnostic testing as well as the need to follow-up with their primary care provider for further evaluation and treatment or return to the ED if any new or worsening symptoms. Strict return precautions were also discussed at length, the patient voiced understanding and agreement with the discharge planning. The patient was nontoxic in appearance, in no apparent distress, and hemodynamically stable at the time of disposition. EMERGENCY DEPARTMENT GENERAL DISCHARGE INSTRUCTIONS Thank you for coming to [facility] Emergency Department (ED) today and trusting us with you care. We trust that you had a positive experience in our Emergency Department. If you wish to speak to the department management, you may call the Director at [phone]. YOUR FOLLOW UP INSTRUCTIONS ARE FOLLOWS: 1. Do you have a private Doctor? If you do not have a private doctor, please ask for a resource list of physicians or clinics that may be able to assist you with follow up care. 2. The Emergency Physicain has interpreted your x-rays. The X-Ray specialist will also review them. If there is a change in the findings, you will be notified in 48 hours when at all possible. 3. A lab test or culture has been done, your results will be reviewed and you will be notified if you need a change in treatment. ADDITIONAL INSTRUCTIONS AND INFORMATION: 1. Your care today has been supervised by a physician who is specially trained in emergency care. Many problems require more than one evaluation for a complete diagnosis and treatment. We recommend that you schedule your follow up appointment as recom mended to ensure complete treatment of you illness or injury. If you are unable to obtain follow up care and continue to have a problem, or if your condition worsens, we recommend that you return to the ED. 2. We are not able to safely determine your condition over the phone nor are we able to give sound medical advice over the phone. For these safety reasons, if you call for medical advice we will ask you to come to the ED for further evaluation. 3. If you have any questions regarding these discharge instructions please call the ED at [phone]. SAFETY INFORMATION: In the interest of safety, wellness, and injury prevention; we encourage you to wear your sealbelt, if you smoke; quite smoking, and we encourage family to use a protective helmet for bicycling and other sporting events that present an increased risk for head injury. IF YOUR SYMPTOMS WORSEN OR NEW SYMPTOMS DEVELOP, OR YOU HAVE CONCERNS ABOUT YOUR CONDITION; OR IF YOUR CONDITION WORSENS WHILE YOU ARE WAITING FOR YOUR FOLLOW UP APPOINTMENT; EITHER CONTACT YOUR PRIMARY CARE DOCTOR, THE PHYSICIAN WHOSE NAME AND NUMBER YOU WERE GIVEN, OR RETURN TO THE ED IMMEDIATELY. Scripts Cephalexin (KEFLEX) 500 Mg Capsule 1 CAP PO BID for 7 Days, #14 CAP 0 Refills Prov: JOSE M BEE APRN 08/14/21 JOSE M BEE APRN Aug 14, 2021 16:21
[2021-08-14 16:36] LABS: CALCIUM 9.6 mg/dL (8.5-10.1); GFR 68.7; POTASSIUM 3.2 mmol/L (3.5-5.1)
[2021-08-14 17:33] LABS: BILIRUBIN,URINE NEGATIVE (NEG); CLARITY,URINE CLOUDY; COLOR,URINE YELLOW; NITRITE,URINE POSITIVE (NEG); PROTEIN,URINE NEGATIVE (NEG-TRACE); UROBILINOGEN,URINE 0.2 mg/dL (0.2 mg/dL)
[2021-08-14 17:38] LABS: HYALINE CASTS, URINE FEW /HPF
[2021-08-14 17:40] LABS: BACTERIA,URINE MODERATE /HPF (0-FEW); WBC,URINE >40 /HPF (0-4)
[2021-08-14 18:38] VITALS: BP 147/86
[2021-08-14] MEDS ORDERED: CEPH500C PO (18:49)
== END 2021-08-14 19:08 | disposition home or self-care (01) ==
LOC: ER 13:15
DX: E11.40 Type 2 diabetes mellitus with diabetic neuropathy, unspecified (principal); N30.01 Acute cystitis with hematuria; E78.00 Pure hypercholesterolemia, unspecified; I10 Essential (primary) hypertension; E03.9 Hypothyroidism, unspecified; F17.210 Nicotine dependence, cigarettes, uncomplicated; Z88.0 Allergy status to penicillin; Z88.2 Allergy status to sulfonamides
CPT/HCPCS: 36415; 80048; 81001; 83690; 85025; 87077; 87086; 87186; 96372; 96374; 96375; 99285; J1040; J2405; J3010

== ENCOUNTER → 2022-02-14 | Outpatient (CLI) | payer OTHER ==
[~2022-02-14] MED LIST changes: +CEPH500C PO
--- NOTE | 2022-02-14 11:58 | RAD ---
EXAM: Lumbar spine, 3 views; pelvis and right hip, 2 views. HISTORY: Pain. COMPARISON: None. FINDINGS: Lumbar spine: 3 views of the lumbar spine are obtained. There is no significant listhesis. There is m ultilevel endplate remodeling. There is facet arthropathy predominantly at the lower lumbar levels. T here are few small endplate Schmorl's nodes. There are cholecystectomy clips. There is suspected part ial sacralization of the left L5 transverse process. There is asymmetric subchondral sclerosis involv ing the left greater than right sacroiliac joints. Pelvis and right hip: A frontal view the pelvis and frog-leg view the right hip are obtained. There i s bilateral hip joint space narrowing with degenerative subchondral sclerosis, subchondral cyst forma tion and marginal spurring. IMPRESSION: 1. Multilevel degenerative change involving the lumbar spine, primarily at the lower lumbar levels. 2. Moderate bilateral hip osteoarthritis. 3. Asymmetric subchondral sclerosis involving the left greater than right sacroiliac joint. Correlate for possible sacroiliitis. Electronically signed by: Ronda Hollis MD (02/14/2022 11:56 AM) [id number]
== END ==
LOC: RAD 10:41
PROVIDERS: ATTEND Anesthesiology Pain Medicine
DX: Z02.71 Encounter for disability determination (principal); M47.816 Spondylosis without myelopathy or radiculopathy, lumbar region; M16.0 Bilateral primary osteoarthritis of hip; M48.8X6 Other specified spondylopathies, lumbar region; M51.46 Schmorl's nodes, lumbar region; M53.3 Sacrococcygeal disorders, not elsewhere classified; M25.552 Pain in left hip; M25.851 Other specified joint disorders, right hip; M25.852 Other specified joint disorders, left hip; Z90.49 Acquired absence of other specified parts of digestive tract
CPT/HCPCS: 72100; 73521